=== PATIENT | female | born 1960 | race African-American/Black ===

== ENCOUNTER 2021-12-30 15:02 | Emergency (ER) | payer OTHER, SELFPAY ==
--- NOTE | ~2021-12-30 | XR_ITS ---
EXAMINATION: XR chest 2V 12/30/2021 15:53 INDICATION: Cough and shortness of breath. Covid. PROCEDURE: 2 view chest COMPARISON: No prior studies for comparison. FINDINGS: The lungs are clear. The cardiomediastinal silhouette is within normal limits. There are no pleural effusions. There is no pneumothorax suspected. There is mild scoliosis. There are cholec ystectomy clips. IMPRESSION: 1: NO ACUTE CARDIOPULMONARY DISEASE. Reviewed, dictated and finalized at location A.
[2021-12-30 15:23] VITALS: BP 143/90; PULSE 90; RESP 20; TEMP 37.2; O2SAT 100
[2021-12-30 15:53] VITALS: O2SAT 98
--- NOTE | 2021-12-30 16:01 | ED.URI ---
HPI - URI/Sore Throat General Chief Complaint: Upper Respiratory Infection Stated Complaint: sob Time Seen by Provider: 12/30/21 15:54 History of Present Illness HPI Narrative: 61-year-old female presents emergency room secondary cough and congestion. She states that has been going on for 2 days. She states she feels her self wheezing sometimes when she is trying to lay down at night and sleep. She has had pneumonia twice in the past. Approximate month ago despite being vaccinated she caught COVID and got over that without any significant adverse effects. She has no cardiac history. Related Data Allergies Allergy/AdvReac Type Severity Reaction Status Date / Time tetanus and diphtheria Allergy Mild Rash Verified 12/30/21 15:40 toxoids Penicillins Allergy Unknown Rash Verified 12/30/21 15:40 Contrast Media Allergy Mild Rash Uncoded 12/30/21 15:40 Review of Systems Review of Systems: CONSTITUTIONAL: Denies fever, chills, or sweats. EYES: Denies visual changes, redness, or discharge. ENT: Denies rhinorrhea, congestion, sore throat, or otalgia. CARDIOVASCULAR: Denies chest pain, palpitations, or edema. RESPIRATORY: Nonproductive cough with some wheezing GASTROINTESTINAL: Denies abdominal pain, nausea, vomiting, or diarrhea. GENITOURINARY: Denies dysuria or hematuria. SKIN: Denies rash or itching. MUSCULOSKELETAL: Denies back pain, joint pain, or myalgia. NEUROLOGIC: Denies headache, numbness, or weakness. PSYCHIATRIC: Denies anxiety or depression. PMFSH Past Medical History Medical History COVID Pneumonia Social History Social History Smoking status: Never smoker Exam Narrative: APPEARANCE: Well appearing, no pain or distress, well-nourished. Head normocephalic and atraumatic. EYES: PERRLA/EOMI, conjunctivae very clear. NOSE: Normal with no drainage EARS:TMS clear Cuco Robb, with good light reflex. THROAT: Pharynx clear, no exudate. NECK: Supple. No adenopathy, no masses. RESPIRATORY: Scattered coarse rhonchi with some mild end expiratory wheezing. CARDIOVASCULAR: Regular rate and rhythm without murmurs, rubs, or gallops. ABDOMINAL: Soft, nontender, nondistended, no hepatosplenomegaly Musculoskeletal: Moves all extremities. Strength/ROM intact, No edema, No calf tenderness. NEURO: Alert. Cranial nerves II through XII intact. Normal gait. Good coordination. Nonfocal examination. SKIN:: Warm, dry. Normal Color PSYCHIATRIC: Normal affect/mood, normal interaction Course Vital Signs Vital signs: Vital Signs Temperature 98.9 F 12/30/21 15:23 Pulse Rate 90 12/30/21 15:23 Respiratory Rate 20 12/30/21 15:23 Blood Pressure 143/90 H 12/30/21 15:23 Pulse Oximetry 100 12/30/21 15:23 Oxygen Delivery Room Air 12/30/21 15:23 Temperature 98.9 F 12/30/21 15:23 Pulse Rate 90 12/30/21 15:23 Respiratory Rate 20 12/30/21 15:23 Blood Pressure 143/90 H 12/30/21 15:23 Pulse Oximetry 98 12/30/21 15:53 Oxygen Delivery Room Air 12/30/21 15:53 MDM - URI/Sore Throat Imaging Data Radiologist's impression: [place] [address] [place] [address] XRay Report Signed Patient: Steffanie Dennis : 1960 MR#: [id number] Age/Sex: 61 / F Acct:[id number] Loc: [facility]? ? ADM Date: 12/30/21Attending Dr: Ordering Physician: Ramírez Roman DO Date of Service: 12/30/21 Procedure(s): XR chest 2V Accession Number(s): [id number] cc: Mia, Montserrat HOPSON; Ramírez Roman DO~ EXAMINATION: XR chest 2V 12/30/2021 15:53 INDICATION: Cough and shortness of breath. Covid. PROCEDURE:? 2 view chest COMPARISON: No prior studies for comparison. FINDINGS: The lungs are clear.? The cardiomediastinal silhouette is within normal limits.? There are no pleural effusions.? There is no pneumothorax suspected.? There is mild
== END 2021-12-30 16:20 | disposition home or self-care (01) ==
LOC: ANHED 16:17
PROVIDERS: Emergency Provider Emergency Medicine; PCP Internal Medicine Infectious Disease
DX: J20.9 Acute bronchitis, unspecified (principal); Z86.16 Personal history of COVID-19; Z87.01 Personal history of pneumonia (recurrent)
CPT/HCPCS: 71046; 99283

== ENCOUNTER 2022-02-14 10:10 | Outpatient (CLI) | payer OTHER, SELFPAY ==
--- NOTE | 2022-02-14 11:00 | NEURO_ITS ---
Impression: # Complains of pain in right hand. # Nonlocalizing mild right ulnar neuropathy around the elbow. # No Carpal Tunnel Syndrome. # Normal needle/EMG exam. # Clinical correlation recommended. Nerve Conduction Studies Anti Sensory Summary Table Stim Site NR Peak (ms) P-T Amp (?V) Site1 Site2 Delta-P (ms) Dist (cm) Yury (m/s) Right Median Anti Sensory (2-3nd Digit) Wrist 3.4 56.6 Wrist 2-3nd Digit 3.4 14.0 41 Wrist 3.5 39.5 Wrist 2-3nd Digit 3.4 14.0 41 Right Radial Anti Sensory (Base 1st Digit) Wrist 2.4 17.4 Wrist Base 1st Digit 2.4 0.0 Right Ulnar Anti Sensory (5th Digit) Wrist 2.6 30.6 Wrist 5th Digit 2.6 14.0 54 Motor Summary Table Stim Site NR Onset (ms) O-P Amp (mV) Site1 Site2 Delta-0 (ms) Dist (cm) Yury (m/s) Right Median Motor (Abd Poll Brev) Wrist 3.4 5.2 Elbow Wrist 4.8 27.0 56 Elbow 8.2 3.2 Right Ulnar Motor (Abd Dig Minimi) Wrist 2.6 7.4 A Elbow Wrist 5.5 28.0 51 A Elbow 8.1 5.9 B Elbow Wrist 3.7 19.0 51 B Elbow 6.3 3.7 F Wave Studies NR F-Lat (ms) L-R F-Lat (ms) Right Median (Mrkrs) (Abd Poll Brev) 26.37 Right Ulnar (Mrkrs) (Abd Dig Min) 27.66 EMG Side Muscle Nerve Root Ins Act Fibs Amp Dur Recrt Comment Right 1stDorInt Ulnar C8-T1 Nml Nml Nml Nml Nml Right Ext Indicis Radial (Post Int) C7-8 Nml Nml Nml Nml Nml Right Ext Digitorum Radial (Post Int) C7-8 Nml Nml Nml Nml Nml Right BrachioRad Radial C5-6 Nml Nml Nml Nml Nml Right PronatorTeres Median C6-7 Nml Nml Nml Nml Nml Right Abd Poll Brev Median C8-T1 Nml Nml Nml Nml Nml MTDD
== END 2022-02-14 10:11 | disposition home or self-care (01) ==
LOC: ANHNEURO 10:10
PROVIDERS: PCP Internal Medicine Infectious Disease; Visit Provider Orthopaedic Surgery Hand Surgery
DX: M77.11 Lateral epicondylitis, right elbow (principal); G56.21 Lesion of ulnar nerve, right upper limb
CPT/HCPCS: 95886; 95909

== ENCOUNTER 2022-10-14 21:03 | Emergency (ER) | payer OTHER, SELFPAY ==
--- NOTE | ~2022-10-14 | XR_ITS ---
Clinical Indication: Chest pain PA and lateral views of the chest: Comparison: 12/30/2021 Findings: The lungs are clear, without evidence of focal consolidation or pleural effusion. Cardiome diastinal silhouette is within normal limits. Bones and soft tissues are unremarkable. Impression: Normal chest. Reviewed, dictated and finalized at location . Impression: Normal chest.
--- NOTE | 2022-10-14 21:05 | ECG_ITS ---
Measurements Intervals [place] Rate: 81 P: 44 OR: 141 QRS: 17 QRSD: 92 T: 36 QT: 378 QTc: 440 Interpretive Statements SINUS RHYTHM NORMAL ELECTROCARDIOGRAM NO PREVIOUS ECG AVAILABLE FOR COMPARISON Electronically Signed On 10-15-2022 7:24:50 CDT by Clifton Kelly M.D.
[2022-10-14 21:18] VITALS: BP 132/72; RESP 18; O2SAT 99
--- NOTE | 2022-10-14 21:18 | ED.CHESTPAIN ---
HPI - Chest Pain General Chief Complaint: Chest Pain Stated Complaint: chest pain Time Seen by Provider: 10/14/22 21:10 History of Present Illness HPI narrative: Patient is a 62-year-old female with a history of hypertension, diabetes, asthma presenting with chest pain. Patient states that she was just sitting in bed when she developed diffuse chest pressure that spreads across the front of her chest. States that she initially felt lightheaded and somewhat short of breath with it. She denies radiation to her back or arms. Denies headache, numbness or weakness, vision changes, abdominal pain, nausea or vomiting, diarrhea, leg swelling. Related Data Allergies Allergy/AdvReac Type Severity Reaction Status Date / Time tetanus and diphtheria Allergy Mild Rash Verified 10/14/22 22:00 toxoids Penicillins Allergy Unknown Rash Verified 10/14/22 22:00 Contrast Media Allergy Mild Rash Uncoded 10/14/22 22:00 Review of Systems Review of Systems: All systems reviewed & are unremarkable except as noted in HPI and below PMFSH Past Medical History Medical History COVID Pneumonia Social History Social History Smoking status: Never smoker Exam Narrative: GENERAL: Appears somewhat uncomfortable, pleasant and cooperative HEAD: Normocephalic, atraumatic. EYES: PERRLA and EOMI. ENT: Nares clear, no rhinorrhea or epistaxis. Mucous membranes moist. NECK: Supple. CHEST: Clear to auscultation. No respiratory distress. No wheezing noted HEART: Regular rate and rhythm. No murmur heard. Normal peripheral pulses. 2+ radial pulses ABDOMEN: Soft, nontender, nondistended EXTREMITIES: Normal range of motion. No edema. SKIN: Warm, dry, no rash. NEURO: No focal deficits. Alert and oriented x3. PSYCH: Normal mood and affect. Course Vital Signs Vital signs: Vital Signs Respiratory Rate 18 10/14/22 21:18 Blood Pressure 132/72 10/14/22 21:18 Pulse Oximetry 99 10/14/22 21:18 Oxygen Delivery Room Air 10/14/22 21:18 Pulse Rate 78 10/15/22 03:27 Respiratory Rate 16 10/15/22 03:27 Blood Pressure 118/76 10/15/22 03:27 Pulse Oximetry 98 10/15/22 03:27 Oxygen Delivery Room Air 10/14/22 21:21 MDM - Chest Pain MDM Narrative Medical decision making narrative: Patient is a 62-year-old female presenting with 1 hour of chest pain. Vitals are within normal limits. Patient is well-appearing and in no acute distress. EKG per my interpretation shows normal sinus rhythm, normal axis and intervals, nonspecific T wave changes, no ST elevations or depressions. Chest x-ray shows no focal consolidations, effusions, pneumothorax. Mediastinum appears normal. Received p.o. aspirin via EMS. Patient received IV Tylenol and some fluids. Patient states that her pain has completely resolved. Blood work with hyperglycemia and mild anemia. Troponin is undetectable x2. She continues to rest comfortably. Her vital signs remain normal. Discussed the reassuring work-up with the patient. She feels comfortable going home. She denies any further pain or symptoms. Advised that she follow-up closely with her PCP. Also provided the number for cardiology and advised that she call on Monday to schedule follow-up. Strict return precautions were given. Patient voiced understanding and is agreeable with plan. Discharged in stable condition. Differential Diagnosis Differential diagnosis: Likely pneumothorax, stable angina, atypical chest pain, costochondritis and chest pain Lab Data 10/14/22 21:57 10/14/22 21:57 Labs: Lab Results 10/14/22 10/14/22 10/15/22 Range/Units 21:57 21:57 01:30 WBC 7.6 (4.5-10.0) K/mm3 RBC 4.07 L (4.2-5.4) M/mm3 Hgb 11.1 L (12.0-15.0) g/dL Hct 35.3 L (37.0-47.0) % MCV 86.7 (80-100) fl MCH 27.3 (26-34) pg MCHC 31.4 L (3
[2022-10-14 22:02] LABS: Basophils Percent Auto 0.5 % (0.2-1.2); Eosinophils Absolute Auto 0.2 K/mm3 (0-0.3); Hematocrit 35.3 % (37.0-47.0); Hemoglobin 11.1 g/dL (12.0-15.0); Immature Granulocyte Absolute 0.02 K/mm3 (0.00-0.031); Immature Granulocyte Percent A 0.3 % (0-0.5); Lymphocytes Absolute Auto 3.28 K/mm3 (0.9-3.2); Lymphocytes Percent Auto 43.2 % (18.3-44.2); Mean Corpuscular HGB Conc 31.4 g/dl (32-36); Mean Corpuscular Hemoglobin 27.3 pg (26-34); Mean Corpuscular Volume 86.7 fl (80-100); Mean Platelet Volume 10.8 fl (7.4-10.4); Monocytes Absolute Auto 0.4 K/mm3 (0.1-0.6); Monocytes Percent Auto 5.8 % (2.6-8.5); Neutrophils Absolute Auto 3.7 K/mm3 (1.3-6.7); Neutrophils Percent Auto 48.2 % (45.5-73.1); Platelet Count Result 292 k/mm3 (150-375); Red Blood Count 4.07 M/mm3 (4.2-5.4); Red Cell Distribution Width 13.2 % (11.5-14.5); White Blood Count 7.6 K/mm3 (4.5-10.0)
[2022-10-14 22:13] LABS: Prothrombin Time 12.9 Seconds (11.1-14.7)
[2022-10-14 22:14] LABS: Partial Thromboplastin Time 24.9 SECONDS (22.3-36.8)
[2022-10-14 22:20] LABS: Alanine Aminotransferase 24 U/L (6-35); Albumin Level 3.9 g/dL (3.5-5.1); Alkaline Phosphatase 125 U/L (38-126); Anion Gap 11 mmol/L (8-16); Aspartate Amino Transferase 23 U/L (14-36); Bilirubin,Total 0.4 mg/dL (0.2-1.3); Blood Urea Nitrogen 16 mg/dL (7-17); Calcium 8.4 mg/dL (8.4-10.2); Carbon Dioxide 23 mmol/L (22-30); Chloride 101 mmol/L (98-107); Estimated CRCL calculation 54 ml/min; Estimated Glomerular Filt Rate > 60; Glucose 230 mg/dL (65-110); Sodium 135 mmol/L (137-145)
[2022-10-14] MEDS: SODIUM CHLORIDE 0.9% IV 1,000 ML 999 ML IV CONT (22:21)
[2022-10-14 22:23] VITALS: BP 123/73; PULSE 81; RESP 20; O2SAT 99
[2022-10-14 22:32] LABS: Troponin I < 0.012 ng/mL (0.000-0.034)
[2022-10-14 23:42] VITALS: O2SAT 100
[2022-10-14 23:43] VITALS: BP 102/56; PULSE 86; RESP 16; O2SAT 100
[2022-10-14 23:55] VITALS: O2SAT 100
[2022-10-15] VITALS (12 sets, daily range): BP systolic 118–128; BP diastolic 70–76; PULSE 78; RESP 16; O2SAT 97–100
[2022-10-15 02:03] LABS: Troponin I < 0.012 ng/mL (0.000-0.034)
== END 2022-10-15 03:29 | disposition home or self-care (01) ==
PROVIDERS: Emergency Provider Emergency Medicine; PCP Internal Medicine Infectious Disease
DX: R07.9 Chest pain, unspecified (principal); I10 Essential (primary) hypertension; J45.909 Unspecified asthma, uncomplicated
CPT/HCPCS: 36415; 71046; 80053; 84484; 85025; 85610; 85730; 93005; 96361; 96365; 99284; J0131; J7030

== ENCOUNTER 2023-03-08 12:49 | Emergency (ER) | payer OTHER, SELFPAY ==
--- NOTE | ~2023-03-08 | XR_ITS ---
EXAMINATION: XR chest 2V 03/08/2023 13:45 INDICATION: Shortness of breath, wheezing and cough PROCEDURE: 2 view chest COMPARISON: 10/14/2022 FINDINGS: There is a possible mass in the right upper lobe posteriorly overlying the spine on the lat eral view. The cardiomediastinal silhouette is within normal limits. There are no pleural effusions. There is no pneumothorax suspected. IMPRESSION: 1: Possible right upper lobe mass. Recommend correlation with CT chest. Reviewed, dictated and finalized at location B.
[2023-03-08 13:19] VITALS: BP 142/71; PULSE 81; RESP 20; TEMP 36.4; O2SAT 100
[2023-03-08 14:18] LABS: Influenza A QL RT-PCR Negative (Negative); Influenza B QL RT-PCR Negative (Negative); RSV RNA, RT-PCR Negative (Negative); SARS-CoV-2 RNA PCR Negative (Negative)
--- NOTE | 2023-03-08 14:34 | ED.URI ---
HPI - URI/Sore Throat General Chief Complaint: Upper Respiratory Infection Stated Complaint: Breathing 3x in last 12 hours, SOB Time Seen by Provider: 03/08/23 13:29 History of Present Illness HPI Narrative: 62-year-old female history of asthma presents to the emergency room for evaluation of shortness of breath, wheezing, increased use of her albuterol rescue inhaler. Patient states that her triggers environmental, reportedly her neighbors smoke. When she is exposed to the cigarette smoke she has to use her inhaler with increased frequency. Denies fever. Related Data Allergies Allergy/AdvReac Type Severity Reaction Status Date / Time tetanus and diphtheria Allergy Mild Rash Verified 03/08/23 12:50 toxoids Penicillins Allergy Unknown Rash Verified 03/08/23 12:50 Contrast Media Allergy Mild Rash Uncoded 03/08/23 12:50 Review of Systems Review of Systems: CONSTITUTIONAL: Denies fever, chills, or sweats. EYES: Denies visual changes, redness, or discharge. ENT: Denies rhinorrhea, congestion, sore throat, or otalgia. CARDIOVASCULAR: Denies chest pain, palpitations, or edema. RESPIRATORY: Reports cough or dyspnea. GASTROINTESTINAL: Denies abdominal pain, nausea, vomiting, or diarrhea. GENITOURINARY: Denies dysuria or hematuria. SKIN: Denies rash or itching. MUSCULOSKELETAL: Denies back pain, joint pain, or myalgia. NEUROLOGIC: Denies headache, numbness, dizziness, or weakness. PSYCHIATRIC: Denies anxiety or depression. PMFSH Past Medical History Medical History COVID Pneumonia Social History Social History Smoking status: Never smoker Exam Narrative: GENERAL: Well-appearing, well-nourished, no physical limitations, and in no acute distress. HEAD: Normocephalic, atraumatic. EYES: Conjunctivae normal, PERRLA and EOMI. NECK: Supple. CHEST: Expiratory wheezes throughout, no respiratory distress. HEART: Regular rate and rhythm. No murmur heard. Normal peripheral pulses. EXTREMITIES: Normal range of motion. No edema. No clubbing or cyanosis SKIN: Warm, dry, no rash. No noted wounds NEURO: No focal deficits. Alert and oriented x3. MAMARCO. CN's II-XI intact bilaterally, normal gait PSYCH: Cooperative. Normal mood and affect. Course Vital Signs Vital signs: Vital Signs Temperature 36.4 C 03/08/23 13:19 Pulse Rate 81 03/08/23 13:19 Respiratory Rate 20 03/08/23 13:19 Blood Pressure 142/71 H 03/08/23 13:19 Pulse Oximetry 100 03/08/23 13:19 Oxygen Delivery Room Air 03/08/23 13:19 Temperature 36.4 C 03/08/23 13:19 Pulse Rate 81 03/08/23 13:19 Respiratory Rate 20 03/08/23 13:19 Blood Pressure 142/71 H 03/08/23 13:19 Pulse Oximetry 100 03/08/23 13:19 Oxygen Delivery Room Air 03/08/23 13:19 MDM - URI/Sore Throat Lab Data Labs: Lab Results 03/08/23 Range/Units 13:38 Influenza A (RT-PCR) Negative (Negative) Influenza B (RT-PCR) Negative (Negative) RSV (RT-PCR) Negative (Negative) SARS-CoV-2 RNA (RT-PCR) Negative (Negative) Discharge Plan Discharge Clinical Impression: Asthma exacerbation Patient Disposition: Home, Self-Care Condition: Stable Instructions: Antibiotic Form, Asthma (DC) Prescriptions: New prednisone 20 mg tablet 60 mg PO DAILY Qty: 15 0RF fluticasone propion-salmeterol [Advair Diskus] 100-50 mcg/dose blister with device 1 inh inhalation Q12H Qty: 60 0RF No Action azithromycin [Zithromax Z-Ap] 250 mg tablet See Rx Instructions .ROUTE .COMPLEX Qty: 6 0RF Rx Instructions: For 250 mg dose pack: take 500 mg today (day 1), then 250 mg for 4 days (days 2-5) albuterol sulfate 90 mcg/actuation aerosol powdr breath activated 2 inh inhalation Q6H PRN (Reason: shortness of breath or wheezing) Qty: 1 0RF Follow-up/Referrals: Mia,Garett Mariano. [Primary Care Provide
[2023-03-08 15:10] VITALS: PULSE 75; RESP 20
[2023-03-08] MEDS: ALBUTEROL SULFATE NEB 2.5 MG/3 ML INH INHALATION (15:19)
[2023-03-08] MEDS: IPRATROPIUM BR 0.02% INH SOLN 0.5 MG/2.5 ML VIAL INHALATION (15:19)
[2023-03-08 15:21] VITALS: PULSE 72; RESP 20
[2023-03-08 15:35] VITALS: BP 133/80; PULSE 66; RESP 16; O2SAT 99
== END 2023-03-08 15:41 | disposition home or self-care (01) ==
PROVIDERS: Emergency Provider Nurse Practitioner Family; PCP Internal Medicine Infectious Disease
DX: J45.901 Unspecified asthma with (acute) exacerbation (principal); Z20.822 Contact with and (suspected) exposure to COVID-19; Z86.16 Personal history of COVID-19; Z87.01 Personal history of pneumonia (recurrent)
CPT/HCPCS: 71046; 87637; 94640; 96372; 99283; J1100

== ENCOUNTER 2024-10-01 12:02 | Emergency (ER) | payer OTHER, SELFPAY ==
--- NOTE | ~2024-10-01 | XR_ITS ---
EXAMINATION: XR chest 2V DATE: 10/01/2024 12:38 INDICATION: Chest pain TECHNIQUE: PA and lateral views of the chest were obtained. COMPARISON: Chest radiograph dated 03/08/2023 FINDINGS: The lungs remain clear with no focal airspace opacities, pulmonary edema, pleural effusion or pneumot horax. Heart size is normal. Cholecystectomy clips in right upper quadrant. bridging osteophytes at m ultiple levels consistent with diffuse idiopathic skeletal hyperostosis (DISH). IMPRESSION: 1. No acute cardiopulmonary disease. Reviewed, dictated and finalized at location A.
--- NOTE | 2024-10-01 12:07 | ECG_ITS ---
Test Date: 2024-10-01 12:23:08 Measurements Intervals [place] Rate: 64 P: 44 [place]: 141 QRS: 17 QRSD: 81 T: 42 QT: 399 QTc: 412 Interpretive Statements SINUS RHYTHM BASELINE ARTIFACT- I, III, AVR, AVL NORMAL ECG No previous ECG available for comparison Electronically Signed On 10-01-2024 12:56:26 CDT by Parminder Wylie D.O.
[2024-10-01 12:31] LABS: Basophils Percent Auto 0.3 % (0.2-1.2); Eosinophils Absolute Auto 0.1 K/mm3 (0-0.3); Eosinophils Percent Auto 1.3 % (0-4.4); Hematocrit 40.2 % (37.0-47.0); Hemoglobin 12.5 g/dL (12.0-15.0); Immature Granulocyte Absolute 0.02 K/mm3 (0.00-0.031); Immature Granulocyte Percent A 0.3 % (0-0.5); Lymphocytes Percent Auto 30.8 % (18.3-44.2); Mean Corpuscular HGB Conc 31.1 g/dl (32-36); Mean Corpuscular Hemoglobin 26.8 pg (26-34); Mean Corpuscular Volume 86.1 fl (80-100); Mean Platelet Volume 10.8 fl (7.4-10.4); Monocytes Absolute Auto 0.2 K/mm3 (0.1-0.6); Monocytes Percent Auto 3.9 % (2.6-8.5); Neutrophils Absolute Auto 3.9 K/mm3 (1.3-6.7); Neutrophils Percent Auto 63.4 % (45.5-73.1); Platelet Count Result 303 k/mm3 (150-375); Red Blood Count 4.67 M/mm3 (4.2-5.4); Red Cell Distribution Width 13.4 % (11.5-14.5); White Blood Count 6.2 K/mm3 (4.5-10.0)
[2024-10-01 12:55] LABS: Alanine Aminotransferase 15 U/L (6-35); Albumin Level 4.4 g/dL (3.5-5.1); Alkaline Phosphatase 113 U/L (38-126); Anion Gap 9 mmol/L (4-12); Aspartate Amino Transferase 23 U/L (14-36); Bilirubin,Total 0.7 mg/dL (0.2-1.3); Blood Urea Nitrogen 15 mg/dL (7-17); Calcium 9.2 mg/dL (8.4-10.2); Carbon Dioxide 24 mmol/L (22-30); Chloride 105 mmol/L (98-107); Estimated CRCL calculation 52 ml/min; Estimated Glomerular Filt Rate > 60; Glucose 130 mg/dL (65-110); Lipase 85 U/L (23-300); Potassium 4.4 mmol/L (3.4-5.0); Sodium 138 mmol/L (137-145)
[2024-10-01 12:57] LABS: Partial Thromboplastin Time 23.7 Seconds (22.3-36.8); Prothrombin Time 13.4 Seconds (11.1-14.7)
[2024-10-01 13:05] LABS: Troponin I < 0.012 ng/mL (0.000-0.034)
--- OUTSIDE RECORDS SUMMARY | 2024-10-01 13:22 | XMS_ITS | Clinical Summary ---
Author Organization [facility] Address [address] [facility], [address] [address] Phone Care Team Providers Care Barn And Property Manager Name Role Phone Montserrat Bellamy MD Primary Care Provider Allergies Active Allergy Reactions Criticality Noted Date Comments Iodinated Contrast Media Rash Medium 04/17/2017 Penicillins Hives,Rash Medium 04/17/2017 Bacterial infection Tetanus Toxoids Rash Medium 04/17/2017 Medications albuterol (VENTOLIN HFA) 108 (90 Base) MCG/ACT Aerosol Solution Ventolin HFA 90 mcg/actuation aerosol inhaler INHALE 2 PUFFS PO Q 6 H Active losartan (COZAAR) 100 MG Tablet losartan 100 mg tablet TAKE 1 TABLET BY MOUTH ONCE DAILY 7 Active Alogliptin Benzoate 12.5 MG Tablet alogliptin 12.5 mg tablet TK 2 TS PO QD Active metFORMIN (GLUCOPHAGE) 1000 MG Tablet metformin 1,000 mg tablet 7 Active atorvastatin (LIPITOR) 40 MG Tablet atorvastatin 40 mg tablet TAKE 1 TABLET BY MOUTH ONCE DAILY AT BEDTIME FOR 30 DAYS Active glimepiride (AMARYL) 2 MG Tablet glimepiride 2 mg tablet TAKE 2 TABLETS BY MOUTH TWICE DAILY BEFORE MEAL(S) Active insulin glargine (BASAGLAR KWIKPEN) 100 UNIT/ML Solution Pen-injector Basaglar KwikPen U-100 Insulin 100 unit/mL (3 mL) subcutaneous 7 Active aspirin EC 81 MG Tablet Delayed Response Take 81 mg by mouth. Active Active Problems Problem Noted Date Diagnosed Date Anemia of unknown etiology 12/13/2018 Family History Medical History Relation Name Comments Diabetes Brother Hypertension Brother Diabetes Father Hypertension Father Diabetes Maternal Aunt Hypertension Maternal Aunt Diabetes Mother Hypertension Mother Diabetes Sister Hypertension Sister Relation Name Status Comments Brother Father Maternal Aunt Mother Sister Social History Tobacco Use Types Packs/Day Years Used Date Smoking Tobacco: Never Smokeless Tobacco: Never Alcohol Use Standard Drinks/Week Comments Never 0 (1 standard drink = 0.6 oz pur e alcohol) AUDIT-C Answer Date Recorded Frequency of Alcohol Consumption Never 12/13/2018 Average Number of Drinks Not on file 019 Frequency of Binge Drinking Not on file 11/25 PHQ-2 Answer Date Recorded PHQ-2 Score 0 03/09/2019 Comments Unknown Sex and Gender Information Value Date Recorded Sex Assigned at Not on file Legal Sex Female 5:35 PM CDT Gender Identity Not on file Sexual Orientation Not on file Last Filed Vital Signs Vital Sign Reading Time Taken Comments Blood Pressure 120/70 12/13/2018 1:59 PM CDT Pulse 89 12/13/2018 1:59 PM CDT Temperature 36.6 C (97.8 F) 12/13/2018 1:59 PM CDT Respiratory Rate 16 12/13/2018 1:59 PM CDT Oxygen Saturation 98% 12/13/2018 1:59 PM CDT Inhaled Oxygen Concentration - - Weight 73 kg (161 lb) 12/13/2018 1:59 PM CDT Height 154.9 cm (5' 1 ) 12/13/2018 1:59 PM CDT Body Mass Index 30.42 12/13/2018 1:59 PM CDT Plan of Treatment Health Maintenance Due Date Last Done Comments Hepatitis C Virus (HCV) Screening 1960 TdaP Immunization 1960 Colonoscopy 2006 Colorectal Cancer Screening 2006 Cologuard 2011 Immunochemical Fecal Occult Blood 2011 Zoster Immunization (1 of 2) 2011 Pneumococcal Immunization (5 0+ years) (2 of 2 - PCV) 05/29/2015 05/29/2014 Influenza Immunization (#1) 2024 06/08/2014 SARS-COV-2 Immunization (3 - season) 2024 07/06/2021, 10/03/2020 Respiratory Syncytial Virus (RSV) Immunization (Adult) (1 - 1-dose 75+ series) 2036 Pneumococcal Immunization Combined Discontinued 05/29/2014 Hepatitis B Immunization Aged Out No longer eligible based on patient's age to complete this topic Meningococcal Immunization (ACWY) Aged Out No longer eligible based on patient's age to complete this topic Rotavirus Immunization Aged Out No lo nger eligible based on patient's age to complete this topic Insurance MEDICAID [place] Care Teams Barn And Property Manager Relationship Specialty Start Date End Date Montserrat Bellamy MD [address] [place] [address] PCP - General Internal Medicine 11/29/18
--- OUTSIDE RECORDS SUMMARY | 2024-10-01 13:22 | XMS_ITS | Encounter Summary ---
Author Organization [facility] Address [address] [place] [address] Care Team Providers Care Terra Cotta Roofer Name Role Phone Montserrat Bellamy MD Primary Care Provider Encounter Details Date Type Department Care Team (Late st Contact Info) Description 09/25/2024 Orders Only [facility] - ENT [address], [address] [place] [address] Elyssa Gamboa RN Abnormal MRI Social History Tobacco Use Types Packs/Day Years Used Date Smoking Tobacco: Never Alcohol Use Standard Drinks/Week Comments Never 0 (1 standard drink = 0.6 oz pur e alcohol) Sex and Gender Information Value Date Recorded Sex Assigned at Not on file Gender Identity Not on file Sexual Orientation Not on file documented as of this encounter Plan of Treatment Upcoming Encounters Date Type Department Care Team (Late st Contact Info) Description 01/27/2025 10:00 AM CDT Office Visit [facility] - Neurology [address] [place] [phone] Anusha Morris, [employer] [address] [place] [address] [place] [address] documented as of this encounter Visit Diagnoses Diagnosis Abnormal MRI Other nonspecific (abnormal) findings on radiological and other examinations of body structure documented in this encounter Care Teams Terra Cotta Roofer Relationship Specialty Start Date End Date Montserrat Bellamy MD [address] [place], [place] [id number] PCP - General 10/20/15 documented as of this encounter
--- OUTSIDE RECORDS SUMMARY | 2024-10-01 13:23 | XMS_ITS | Data Portability ---
Author Organization [place] [facility], Main Office Address [address] [place] [address] Care Team Providers Care Car Varnisher Name Role Phone MARIA D MURPHY Primary Care Provider MARIA D MURPHY Referring Provider Assessment Encounter Date Assessment Date Assessment LastModified by Organization Details LastModified Time 12/25/2023 12/25/2023 63-year-old female presents for follow-up of her left hand, status post trigger finger release and 2 subsequent I and D's. She is finished with her course of antibiotics. She has some scar tissue in her palm and tip of her finger where her previous incisions were. She did a course physical therapy which did not help much. She is still feeling stiffness in the finger and working on stretching. Currently rates her pain as 4/10. She does have palpable scar tissue over her previous incisions. They are well healed, no signs of infection. She does have stiffness with finger. We will have her continue working on stretching. We will also give her another course of anti-inflammator ies to help with that. We will keep her on no lifting pushing pulling with the left hand for work. Follow up in 6 weeks. Not available 12/25/2023 23:20:43 02/05/2024 02/05/2024 63-year-old female presents for follow-up of her left hand status post trigger finger release a subsequent I and D for infection. Her infection has since cleared up. She still reports some stiffness in the hand, but she has been working with that with physical therapy and wants to continue working on that. She states that she is doing better, still having some pain, rated as 2 to 3/10. Incisions well healed. No signs of infection. She has no tenderness along the finger. She does have some stiffness with full extension At this point she should continue to do activities as tolerated, progressing with her daily activities. She may follow-up as needed. She wants to be released to work starting in February. All questions and concerns were addressed. Not available 02/08/2024 01:13:40 04/02/2024 04/02/2024 This note is dictated and transcribed by [employer]. [employer] Officer Chief variances may occur. Despite proofreading, typographical errors may occur. Occasional wrong-word or '[id number]' substitutions may have occurred due to the inherent limitations of voice recording. Read the chart carefully and recognize, using context, where substitutions have occurred. Not available 04/02/2024 17:01:39 04/29/2024 04/29/2024 63-year-old female presents for follow-up of her left hand. She has a history of a trigger finger release and subsequent infection and 2 I and D's. That has since cleared up, but she has some stiffness in her finger. She has been doing therapy exercises to stretch out the finger, but still has difficulty with full extension and limited flexion as well. Incision is clean dry intact, no signs of infection. She has a Dupuytren's cord in the palm that limits her full extension. She has thickening of the flexor tendon throughout the hand from the surgical site down to the finger and that is limiting her range of motion as well. Sensation intact to light touch, 2+ radial pulse. At this point, her infection is cleared but she has subsequent scarring and thickening of tissue that is limiting her range of motion. She also has developed a Dupuytren's cord. We will send her for a referral to a hand specialist to discuss further treatment options such as release. She may follow-up with us again after evaluation if there is anything additional to do. She is in agreement with plan. Not available 04/29/2024 11:38:57 08/08/2024 08/08/2024 This note is dictated and transcribed by [employer]. [employer] Chief variances may occur. Despite proofreading, typographical errors may occur. Occasional wrong-word or '[id number]' substitutions may have occurred due to the inherent limitations of voice recording. Read the chart carefully and recognize, using context, where substitutions have occurred. Not available 08/08/2024 18:02:12 Plan of Treatment Reminders Order Date Submit Date Provider Last Modified By Organization Details Last Modified Time Details Appointments Establish ed Patient 15 2024 04:00P Yudy Angel DPM Not available Not available Not available Lab None recorded. Referral hand surgeon referral - Please review and call patient to schedule 2023 024 JACINTO Kitchen MD, [address] [facility], [facility] [address], [place], [address], 04/30/2024 09:50:49 Procedures None recorded. Surgeries None recorded. Imaging None recorded. Medication Orders None recorded. Patient TargetsNo targets recorded. Patient InstructionsNo instructions recorded. Reason for Referral Hand Surgeon Referral for Du puytren's contracture of finger Please review and call patient to schedule Referring Physician: Dave Crane, Orthopedic Surgery, Encounter Date: 04/29/2024 Results Created Date Observation Date Name Description Value Unit Range Abnormal Flag Note LastModifiedBy Organization Detail LastModifiedTime 12/06/19 24 XR, hip + pelvi s, unila teral No observ ation record ed. [email or web address] [facility] [place] [address], [place], [address], 12/06/2023 09:12:46 Result Notes None recorded. Problems Name Problem SNOMED Code Status Onset Date Resolution Date Notes Provider Name and Address Organization Details Recorded Time Pain of right shoulder joint 7815347797608 9100 Active 2021 Not Available [facility] 3 18:36:31 Carpal tunnel syndrome of right wrist 6372633591238 08 Active 2021 Not Available [facility] 3 18:36:31 Lateral epicondyli tis of right humerus 5668063911436 07 Active 2021 Not Available [facility] 3 18:36:31 Vitamin D deficiency 59957644 Active 2021 Not Available [facility] 3 18:36:31 Dyslipidem ia 880444933 Active 2021 Not Available [facility] 3 18:36:31 Hypertensi ve disorder 94067439 Active 2016 Not Available [facility] 3 18:36:31 Type 2 diabetes mellitus 21461496 Active 2019 Not Available [facility] 3 18:36:32 Uncontroll ed type 2 diabetes mellitus 979757867 Active 2021 Not Available [facility] 3 18:36:32 Essential hypertensi on 79716607 Active 2021 Not Available [facility] 3 18:36:32 Diabetes mellitus 70446410 Active 2016 Not Available [facility] 3 18:36:32 Impingemen t syndrome of right shoulder region 6351099222951 02 Active 2022 ZIA Black, [employer] [facility] 3 16:18:13 Cervical radiculopa thy 68258180 Active 2022 Yue Acharya null, [employer] [facility] 3 17:12:41 Ulnar nerve entrapment at elbow 478724899 Active 2022 Tee Kitchen MD [address], [place], [address] , [employer] [facility] 3 11:57:27 Bunion 552817749 Active 2022 Lio Angel DPM [address], [address], [place], [address] , [employer] [facility] [employer] [facility] 3 16:10:49 Foot callus 121157300 Active 2022 Lio Angel DPM [address], [place], [address] , [employer] [facility] 3 16:10:58 Pain in left foot 1705203773633 07 Active 2022 Lio Angel DPM [address], [address], [place], [address] , [employer] [facility] [employer] [facility] 3 16:11:02 Hammer toe 308463300 Active 2022 Lio Angel DPM [address], [address], [place], [address] , [facility] 3 16:11:13 Hammer toe 766262783 Active 2022 Lio Angel DPM [address], [address], [place], [address] , [facility] 3 16:11:19 Bunion 665551534 Active 2022 Lio Angel DPM [address], [address], [place], [address] , [facility] 3 16:12:05 Pain of right knee joint 4000166891932 00 Active 2022 ZIA Padilla null, [facility] 3 11:09:01 Pain of bilateral hands 2161465228991 9109 Active 2022 Yue Acharya null, [facility] 3 11:59:01 Acquired trigger finger of left middle finger 0570533657339 02 Active 2022 ORESTES Driscoll [address], [place], [address] , [facility] 3 12:36:36 Pain in right foot 0472979865460 07 Active 2022 Lio Angel DPM [address], [place], [address] , [facility] 3 16:58:47 Hammer toe 105589608 Active 2022 Lio Angel DPM [address], [place], [address] , [facility] 3 16:58:51 Trigger finger of left hand 6859274441691 9107 Active 2023 Dave Crane MD [address], [place], [address] , [facility] 4 13:07:30 Dystrophia unguium 94860498 Active 2023 Lio Angel DPM [address], [facility] [address], [place], [address] , [facility] 4 14:08:00 Hammer toe 155540722 Active 2023 Lio Angel DPM [address], [facility] [address], [place], [address] , [facility] 4 14:08:18 Pain of left hand 6548251408898 03 Active 2023 ZIA Padilla, [facility] 4 10:34:46 Achilles tendinitis 14973214 Active 2023 Kathie Tolbert CNA null, [facility] 4 11:02:21 Pain of left hip joint 2532397071252 [address], ATC L null, [facility] 4 09:12:41 Osteoarthr itis of left hip joint 6506330089419 08 Active 2023 Yue Acharya null, [facility] 4 09:31:44 Acquired deformity of toe 87676473 Active 2023 Lio Angel DPM [address], [facility] [address], [place], [address] , [facility] 4 17:00:39 Callosity on toe 983873894 Active 2023 Lio Angel DPM [address], [facility] [address], [place], [address] , [facility] 4 17:01:52 Trigger finger of right hand 4708233094472 9101 Active 2023 ZIA Padilla null, [facility] 4 10:36:30 Dupuytren' s contractur e of finger 045008792 Active 2023 Yue jordan [facility] [employer] [facility] 10:57:08 Notes:Some problems listed i n Document: #[id number] could not be added to this patient's chart. Please review this document and add these problems to the patient's chart manually as needed. Problem Notes None recorded. Procedures Surgical History Date Name Laterality Status Provider Name and Address Organization Details Recorded Time 08/08/19 25 Nail Debridement completed ANTONINA Singleton [address], [place], [address], [facility] [employer] [facility] 08/08/2024 18:01:37 08/08/19 25 Callus Debridement 2-4 completed Lio Angel DPM [address], [place], [address], [facility] [employer] [facility] 08/08/2024 18:00:46 04/02/20 24 Nail Debridement completed Lio Angel DPM [address], [place], [address], [facility] [employer] [facility] 04/29/2024 10:39:58 04/02/20 24 Callus Debridement, One completed Lio Angel DPM [address], [place], [address], [facility] [employer] [facility] 04/29/2024 10:39:46 11/14/19 24 Nail Debridement completed ANTONINA Singleton [address], [place], [address], [facility] [employer] [facility] 11/14/2023 17:30:58 11/14/19 24 Callus Debridement, One completed Lio Angel DPM [address], [place], [address], [facility] [employer] [facility] 11/14/2023 17:31:02 10/12/19 24 Hand completed ZIA Padilla [facility] [employer] [facility] 12/04/2023 14:50:09 09/19/19 24 Hand completed Josselyn Mayer Sekou [facility] [employer] [facility] 12/04/2023 14:47:22 09/12/19 24 Nail Debridement completed Lio Angel DPM [address], [address], [place], [address], [facility] [employer] [facility] 09/20/2023 14:07:45 09/12/19 24 Callus Debridement 2-4 completed Lio Angel DPM [address], [address], [place], [address], [facility] [employer] [facility] 09/20/2023 14:07:32 06/13/20 23 Nail Debridement completed Lio Angel DPM [address], [place], [address], [facility] [employer] [facility] 06/13/2023 16:57:26 06/13/20 23 Callus Debridement 2-4 completed Lio Angel DPM [address], [place], [address], [facility] [employer] [facility] [employer] [facility] 06/13/2023 16:58:21 03/13/20 23 Callus Debridement, One completed Lio Angel DPM [address], [place], [address], [facility] [employer] [facility] [employer] [facility] 03/13/2023 17:48:15 11/04/19 23 Nail Debridement completed Lio Angel DPM [address], [address], [place], [address], [facility] [employer] [facility] [employer] [facility] 11/03/2022 16:10:35 11/04/19 23 Callus Debridement, One completed Lio Angel DPM [address], [place], [address], [facility] [employer] [facility] 11/03/2022 16:10:27 04/29/20 21 procedure on tendon completed Not Available [employer] 08/24/2022 18:35:27 Hysterectomy completed Not Available [facility] 08/24/2022 18:35:27 Imaging Results Imaging Date Name Status LastModified by Organiz ation Details LastModified Time 12/06/2023 XR, hip + pelvis, unilateral completed [email or web address] [facility] [place] [address], [place], [address], 12/06/2023 09:12:46 Procedure Notes None recorded. Medical Equipment None Reported. Allergies Allergen ID Allergen Name Allergen Category Reaction Reaction Severity Criticality Documentation Date Start Date Code Code System Note Provider Name and Address Organization Details Recorded Time 69918 Tetanus toxoid adsorbed Not available rash Not available Not available 08/24/2022 63419 RxNorm Not Available [facility] 3 18:37:36 62920 Product containin g penicilli n (product) medicatio n Not available Not available Not available 08/24/2022 19863 8001 SNOMED Not Available [facility] 3 18:37:36 34785 Iodinated contrast media (substanc e) medicatio n Not available Not available Not available 08/24/2022 40818 2004 SNOMED Not Available [facility] 3 18:37:36 19718 diphtheri a, pertussis , tetanus vaccine Not available Not available Not available Not available 08/24/2022 39102 UNK Not Available [facility] 3 18:37:36 Medications Name Sig Start Date Stop Date Status Note LastModified by Organization Details LastModified Time aspirin 81 mg capsule Take by oral route. 03/02 completed Not Available Not Available Not Available atorvastati n 40 mg tablet Take one tablet by mouth twice a week at bedtime 01/27 completed Not Available Not Available Not Available methocarbam ol 500 mg tablet 01/27 completed Not Available Not Available Not Available bupropion HCl SR 150 mg tablet,12 hr sustained-r elease 01/27 completed Not Available Not Available Not Available albuterol sulfate 2.5 mg/3 mL (0.083 %) solution for nebulizatio n USE 1 VIAL IN NEBULIZER THREE TIMES DAILY NEEDED active Not Available Not Available No t Available trazodone 50 mg tablet 01/27 completed Not Available Not Available Not Available clarithromy rahel 250 mg tablet 05/13 completed Not Available Not Available Not Available azithromyci n 250 mg tablet TAKE 2 TABLETS BY MOUTH ON DAY 1, AND THEN TAKE 1 TABLET BY MOUTH ONCE A DAY ON DAY 2 THROUGH DAY 5 07/19 completed Not Available Not Available Not Available Novolin N NPH U-100 Insulin isophane 100 unit/mL subcutaneou s susp 01/27 completed Not Available Not Available Not Available hydrochloro thiazide 50 mg tablet TK 1 T PO QD 03/04 completed Not Available Not Available Not Available hydrocodone 5 mg-acetamin ophen 325 mg tablet TAKE 1 TABLET BY MOUTH EVERY 4 HOURS NEEDED FOR PAIN (4-6 ON SCALE)MAX 4000 MG ACETAMINO PHEN PER 24 HOURS 12/24 completed Not Available Not Available Not Available glipizide ER 10 mg tablet, extended release 24 hr 03/04 completed Not Available Not Available Not Available prednisone 20 mg tablet TAKE 3 TABLETS BY MOUTH ONCE DAILY 12/24 completed Not Available Not Available Not Available isosorbide mononitrate ER 30 mg tablet,exte nded release 24 hr TAKE 1 TABLET BY MOUTH ONCE DAILY active Not Available Not Available No t Available alendronate 70 mg tablet TAKE 1 TABLET BY MOUTH ONCE A WEEK DIRECTED FOR 28 DAYS active Not Available Not Available No t Available cromolyn 4 % eye drops INSTILL 1 DROP IN BOTH EYES EVERY 4 HOURS 03/02 completed Not Available Not Available Not Available Lantus U-100 Insulin 100 unit/mL subcutaneou s solution 01/27 completed Not Available Not Available Not Available Advair Diskus 100 mcg-50 mcg/dose powder for inhalation INHALE 1 DOSE BY MOUTH EVERY 12 HOURS 12/03 completed Not Available Not Available Not Available metronidazo le 500 mg tablet TAKE 1 TABLET BY MOUTH THREE TIMES DAILY FOR 14 DAYS 03/04 completed Not Available Not Available Not Available ciprofloxac in 500 mg tablet TAKE 1 TABLET BY MOUTH TWICE DAILY FOR 14 DAYS 03/04 completed Not Available Not Available Not Available sulfamethox azole 800 mg-trimetho prim 160 mg tablet TAKE 1 TABLET BY MOUTH TWICE DAILY 12/24 completed Not Available Not Available Not Available tramadol 50 mg tablet TK 1 T PO Q 8 H 01/27 completed Not Available Not Available Not Available glimepiride 2 mg tablet TAKE 2 TABLETS BY MOUTH TWICE DAILY BEFORE MEAL(S) active Not Available Not Available No t Available ondansetron 8 mg disintegrat ing tablet 01/27 completed Not Available Not Available Not Available ketorolac 10 mg tablet TAKE 1 TABLET BY MOUTH EVERY 6 HOURS NEEDED FOR 5 DAYS 03/04 completed Not Available Not Available Not Available meloxicam 7.5 mg tablet 01/27 completed Not Available Not Available Not Available Zofran 8 mg tablet Take 1 tablet every 8 hours by oral route for 2 days. 01/27 completed Not Available Not Available Not Available famotidine 20 mg tablet TAKE ONE TABLET BY MOUTH AT BEDTIME THE DAY BEFORE AND ONE TABLET THE MORNING OF THE PROCEDURE 12/03 completed Not Available Not Available Not Available methocarbam ol 750 mg tablet TAKE 1 TABLET BY MOUTH 4 TIMES DAILY NEEDED active Not Available Not Available No t Available pravastatin 10 mg tablet 01/27 completed Not Available Not Available Not Available benzonatate 100 mg capsule TAKE 1 CAPSULE BY MOUTH THREE TIMES DAILY FOR 7 DAYS 03/08 completed Not Available Not Available Not Available doxycycline monohydrate 100 mg capsule TAKE 1 CAPSULE BY MOUTH TWICE DAILY 12/03 completed Not Available Not Available Not Available hydrocodone 7.5 mg-acetamin ophen 325 mg tablet 01/20 completed Not Available Not Available Not Available pantoprazol e 40 mg tablet,kiersten yed release 01/27 completed Not Available Not Available Not Available metformin 1,000 mg tablet TAKE 1 TABLET BY MOUTH TWICE DAILY active Not Available Not Available No t Available glimepiride 4 mg tablet Take 1 tablet twice a day by oral route with meals for 90 days. 12/24 completed Not Available Not Available Not Available prednisone 50 mg tablet TAKE 1 TABLET BY MOUTH EVERY 6 HOURS DIRECTED. TAKE THE LAST DOSE 1 HOUR BEFORE TESTING. 12/03 completed Not Available Not Available Not Available promethazin e 25 mg tablet TK 1/2 T PO EVERY 6 HOURS 01/27 completed Not Available Not Available Not Available insulin syringe U-100 with needle 0.3 mL 30 gauge x 11/08 completed Not Available Not Available Not Available Advair Diskus 250 mcg-50 mcg/dose powder for inhalation INHALE 1 DOSE BY MOUTH TWICE DAILY active Not Available Not Available No t Available nitroglycer in 0.4 mg sublingual tablet DISSOLVE ONE TABLET UNDER THE TONGUE EVERY 5 MINUTES NEEDED FOR CHEST PAIN. DO NOT EXCEED A TOTAL OF 3 DOSES IN 15 MINUTES 08/28 completed Not Available Not Available Not Available gabapentin 300 mg capsule 01/27 completed Not Available Not Available Not Available Banophen 25 mg capsule TAKE 2 CAPSULES BY MOUTH ONE HOUR PRIOR TO CT SCAN 03/04 completed Not Available Not Available Not Available montelukast 10 mg tablet TAKE 1 TABLET BY MOUTH ONCE DAILY AT BEDTIME FOR 30 DAYS active Not Available Not Available No t Available [place] 10 mg-325 mg tablet 1-2 tablets every 4-6 hours prn 10/23 completed Not Available Not Available Not Available ergocalcife rol (vitamin D2) 1,250 mcg (50,000 unit) capsule TAKE 1 CAPSULE BY MOUTH ONCE A WEEK DIRECTED FOR 28 DAYS active Not Available Not Available No t Available insulin lispro (U-100) 100 unit/mL subcutaneou s solution INJECT 10 UNITS SUBCUTANE OUSLY THREE TIMES DAILY WITH MEALS 09/27 completed Not Available Not Available Not Available levofloxaci n 500 mg tablet TK 1 T PO Q 24 H 05/13 completed Not Available Not Available Not Available levofloxaci n 750 mg tablet TAKE 1 TABLET BY MOUTH EVERY 48 HOURS 12/24 completed Not Available Not Available Not Available methylpredn isolone 4 mg tablets in a dose pack TAKE BY MOUTH DIRECTED ON INSIDE OF PACKAGE 09/27 completed Not Available Not Available Not Available albuterol sulfate HFA 90 mcg/actuati on aerosol inhaler INHALE 2 PUFFS BY MOUTH EVERY 6 HOURS NEEDED FOR SHORTNESS OF BREATH active Not Available Not Available No t Available ondansetron 4 mg disintegrat ing tablet 01/27 completed Not Available Not Available Not Available losartan 100 mg tablet TAKE 1 TABLET BY MOUTH ONCE DAILY active Not Available Not Available No t Available fluticasone propionate 50 mcg/actuati on nasal spray,suspe nsion USE 2 SPRAY(S) IN EACH NOSTRIL ONCE DAILY active Not Available Not Available No t Available dicyclomine 10 mg capsule TAKE 1 CAPSULE BY MOUTH THREE TIMES DAILY NEEDED 03/08 completed Not Available Not Available Not Available insulin syringe U-100 with needle 0.5 mL 31 gauge x 11/08 completed Not Available Not Available Not Available ipratropium bromide 21 mcg (0.03 %) nasal spray 01/27 completed Not Available Not Available Not Available neomycin 3.5 mg/g-polymy samir B 10,000 unit/g-dexa meth 0.1 % eye oint active Not Available Not Available Not Available insulin lispro (U-100) 100 unit/mL subcutaneou s pen INJECT 6 TO 10 UNITS SUBCUTANE OUSLY TWICE DAILY BEFORE BREAKFAST AND BEFORE SUPPER active Not Available Not Available No t Available ezetimibe 10 mg tablet TAKE 1 TABLET BY MOUTH ONCE DAILY IN THE MORNING active Not Available Not Available No t Available rosuvastati n 40 mg tablet Take 1 tablet twice a week by oral route at bedtime for 30 days. 01/27 completed Not Available Not Available Not Available metoprolol tartrate 25 mg tablet TAKE 1 TABLET BY MOUTH TWICE DAILY active Not Available Not Available No t Available nitrofurant oin monohydrate /macrocryst als 100 mg capsule 01/27 completed Not Available Not Available Not Available lactulose 10 gram/15 mL oral solution Take 15 mL twice a day by oral route for 30 days. active Not Available Not Available No t Available 8 Hour Pain Reliever 650 mg tablet,exte nded release TAKE 2 TABLETS BY MOUTH EVERY 8 HOURS NEEDED FOR 10 DAYS 07/19 completed Not Available Not Available Not Available albuterol sulfate 01/20 completed Not Available Not Available Not Available Levemir FlexPen 100 unit/mL (3 mL) solution subcutaneou s insulin pen INJECT 40 UNITS SUBCUTANE OUSLY IN THE MORNING AND 50 UNITS AT BEDTIME 12/24 completed Not Available Not Available Not Available peg 3350 240 gram-electr olytes 22.72 gram-6.72 g-5.84 g powdr for soln MIX AND DRINK UTD 01/27 completed Not Available Not Available Not Available Lantus Solostar U-100 Insulin 100 unit/mL (3 mL) subcutaneou s pen INJECT 26 UNITS SUBCUTANE OUSLY NIGHTLY active Not Available Not Available No t Available GaviLyte-N 420 gram oral solution 01/27 completed Not Available Not Available Not Available OneTouch Verio test strips USE 1 STRIP TO CHECK GLUCOSE THREE TIMES DAILY active Not Available Not Available No t Available alogliptin 25 mg tablet TAKE 1 TABLET BY MOUTH ONCE DAILY DIRECTED 03/04 completed Not Available Not Available Not Available alogliptin 12.5 mg tablet TK 2 TS PO QD 03/04 completed Not Available Not Available Not Available Victoza 3-Ap 0.6 mg/0.1 mL (18 mg/3 mL) subcutaneou s pen injector INJECT 0.6 MG SUBCUTANI OUSLY ONCE DAILY WITH LARGE MEAL FOR 1 WEEK THEN INCREASE TO 1.2MG ONCE DAILY active Not Available Not Available No t Available Farxiga 10 mg tablet TAKE 1 TABLET BY MOUTH ONCE DAILY active Not Available Not Available No t Available Jardiance 10 mg tablet 01/27 completed Not Available Not Available Not Available Jardiance 25 mg tablet TAKE 1 TABLET BY MOUTH ONCE DAILY IN THE MORNING FOR 90 DAYS 01/20 completed Not Available Not Available Not Available Trulicity 1.5 mg/0.5 mL subcutaneou s pen injector Inject 1.5 mg every week by subcutane ous route at dinner for 90 days. 08/28 completed Not Available Not Available Not Available Trulicity 0.75 mg/0.5 mL subcutaneou s pen injector INJECT 1 SUBCUTANE OUSLY ONCE A WEEK 12/24 completed Not Available Not Available Not Available OneTouch Verio Meter 08/28 completed Not Available Not Available Not Available TRUEplus Pen Needle 32 gauge x 5/32 USE 1 ONCE DAILY active Not Available Not Available No t Available OneTouch Delica Plus Lancet 30 gauge USE 1 TO CHECK GLUCOSE THREE TIMES DAILY 08/28 completed Not Available Not Available Not Available FreeStyle Alex 2 Sensor kit CHANGE SENSOR EVERY 14 DAYS 12/03 completed Not Available Not Available Not Available FreeStyle Alex 2 [place] USE DIRECTED 08/28 completed Not Available Not Available Not Available Trulicity 3 mg/0.5 mL subcutaneou s pen injector INJECT 1 PEN SUBCUTAIN EOUSLY DAILY AT DINNER 12/24 completed Not Available Not Available Not Available BinaxNOW COVID-19 Ag Self Test kit Use as Directed on the Package 03/02 completed Not Available Not Available Not Available Paxlovid 300 mg (150 mg x 2)-100 mg tablets in a dose pack 01/20 completed Not Available Not Available Not Available Vitals Date Recorded Body height Body mass index (BMI) Body weight Provider Name and Address Organization Details Last Updated DateTime 12/25/2023 154.94 cm 28.5 kg/m2 72572.45 g Yue Patrizia Bango [facility] 12/25/2023 10:21:06 Date Recorded Body height Body mass index (BMI) Body weight Pain severity - 0-10 verbal numeric rating [Score] - Reported Provider Name and Address Organization Details Last Updated DateTime 02/05/2024 154.94 cm 29.3 kg/m2 59976.82 g 2 ZIA Padilla [facility] [employer] [facility] 02/05/2024 10:06:29 Date Recorded Body height Body mass index (BMI) Body weight Heart rate Respiratory rate Oxygen saturation Oxygen saturation in Arterial blood by Pulse oximetry Systolic blood pressure Diastolic blood pressure Provider Name and Address Organization Details Last Updated DateTime 4 154.94 cm 29.3 kg/m2 04914.8 2 g 86 /min 14 /min 99 % 99 % 118 mm[Hg] 71 mm[Hg] Zohreh Cristobal [facility] [employer] [facility] 16:45:00 Date Recorded Body height Body mass index (BMI) Body weight Pain severity - 0-10 verbal numeric rating [Score] - Reported Provider Name and Address Organization Details Last Updated DateTime 04/29/2024 154.94 cm 29.3 kg/m2 15706.82 g 5 ZIA Padilla [facility] [facility] 04/29/2024 10:35:42 Date Recorded Body height Body mass index (BMI) Body weight Heart rate Respiratory rate Oxygen saturation Oxygen saturation in Arterial blood by Pulse oximetry Systolic blood pressure Diastolic blood pressure Provider Name and Address Organization Details Last Updated DateTime 5 154.94 cm 29.3 kg/m2 65115.8 2 g 71 /min 14 /min 98 % 98 % 141 mm[Hg] 86 mm[Hg] Zohreh Cristobal [facility] 5 17:30:32 Social History Question Answer Notes LastModified by Organizat ion Details LastModified Time Tobacco Smoking Status Never Smoker Not Available [facility] 08/24/2022 18:35:25 What Is Your Level Of Alcohol Consumption? None [id number] Information not available 08/24/2022 What Is Your Level Of Caffeine Consumption? Occasional [id number] Information not available 08/24/2022 In The 14 Days Before Symptom Onset, Have You Had Close Contact With A Laboratory-confir med COVID-19 While That Case Was Ill? No [id number] Information not available 08/24/2022 In The 14 Days Before Symptom Onset, Have You Had Close Contact With A Person Who Is Under Investigation For COVID-19 While That Person Was Ill? 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 12/25/2023 [email or web address] Information not available 12/25/2023 What Is Your Relationship Status? [id number] Information not available 08/24/2022 Have You Recently Traveled Abroad? No [id number] Information not available 08/24/2022 Sex: Female Functional Status None recorded. Mental Status None recorded. Family History Relationship Description Onset Age of this Age Resolved Age Notes LastModified by Organization Details LastModified Time Mother Essential hypertension [email or web address] Not available 10:22:36 Mother Diabetes mellitus [email or web address] Not available 12/24 10:22:54 Unspecified Relation Kidney disease [id number] Not available 08/24/2022 18:35:28 Unspecified Relation Diabetes mellitus [id number] Not available 08/24/2022 18:35:28 Sister Cerebrovascu lar accident [id number] Not available 08/24/2022 18:35:28 Father Essential hypertension Not available 10:22:39 Father Diabetes mellitus [email or web address] Not available 12/24 10:22:49 Medical History Condition Response ARTHRITIS Y USE OF BLOOD THINNERS Y ANEMIA/BLOOD DISORDER Y DIABETES, TYPE Y OSTEOPOROSIS Y LUNG DISEASE/DISORDER Y DEPRESSION (INCLUDING POST ) Y HAVE YOU BEEN HOSPITALIZED OR SEEN IN TH E ER IN THE PAST YEAR ? Y HYPERTENSION Y Gynecological HistoryNo gynecological history recorded. Obstetrics History GPAL:G 0 P 0 0 0 0 Past Encounters Encounter ID Performer Location Encounter Start Date Encounter Closed Date Diagnosis/Indication Diagnosis SNOMED-CT Code Diagnosis ICD10 Code Diagnosis Note [id number] [facility] [place] [address] [place] [address] 01/27/2021 00:00:00 01/27/2021 18:19:21 [id number] _FEROZ_ IGRATION_ DEFAULT_1 _1 , 02/05/2021 00:00:00 02/15/2021 10:32:29 [id number] _MILADYSENA_M IGRATION_ DEFAULT_1 _1 , 03/04/2021 00:00:00 03/06/2021 10:48:10 [id number] [facility] [place] [address] [place] [address] 03/23/2021 00:00:00 03/23/2021 14:34:25 [id number] [facility] [place] [address] [place] [address] 05/18/2021 00:00:00 05/18/2021 14:18:19 [id number] [facility] [place] [address] [place] [address] 05/25/2021 00:00:00 05/25/2021 12:04:03 [id number] [facility] [place] [address] [place] [address] 06/22/2021 00:00:00 06/22/2021 13:55:23 [id number] _FEROZ_ IGRATION_ DEFAULT_1 _1 , 08/12/2021 00:00:00 08/12/2021 12:16:31 [id number] [facility] [place] [address] [place] [address] 08/24/2021 00:00:00 08/24/2021 14:09:31 [id number] [facility] [place] [address] [place] [address] 10/19/2021 00:00:00 10/19/2021 10:49:18 [id number] [facility] [place] [address] [place] [address] 12/17/2021 00:00:00 12/17/2021 11:57:43 [id number] _ATHENA_M IGRATION_ DEFAULT_1 _1 , 01/20/2022 00:00:00 01/20/2022 16:46:55 [id number] [facility] [place] [address] [place] [address] 03/08/2022 00:00:00 03/08/2022 12:05:57 [id number] [facility] [place] [address] [place] [address] 04/26/2022 00:00:00 04/26/2022 10:05:35 [id number] [facility] [place] [address] [place] [address] 05/31/2022 00:00:00 05/31/2022 11:07:11 [id number] [facility] [place] [address] [place] [address] 06/01/2022 00:00:00 06/01/2022 16:44:47 [id number] [facility] [place] [address] [place] [address] 06/21/2022 00:00:00 06/21/2022 13:51:57 [id number] [facility] [place] [address] [place] [address] 07/19/2022 00:00:00 07/19/2022 12:58:42 [id number] [facility] [place] [address] [place] [address] 08/23/2022 00:00:00 08/23/2022 17:22:53 [id number] ORESTES Driscoll [facility] [place] [address] [place] [address] 09/21/2022 16:15:54 09/21/2022 17:15:54 Pain of right shoulder joint 0274115179 6385185 M25.511 Impingemen t syndrome of right shoulder region 7544438706 90295 M75.41 Cervical radiculopathy 77920332 M54.12 [id number] Tee Kitchen MD [facility] [place] [address] [place] [address] 10/25/2022 10:29:31 10/25/2022 10:57:09 Pain of right shoulder joint 7011489048 9744216 M25.511 Impingemen t syndrome of right shoulder region 9490154685 05006 M75.41 patient will continue with physical therapy working on range of motion of her elbow and shoulder strengthen ing. We will see her back if worsening of symptoms only. 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 Study show 80% of patients do well with the decompress ion of the nerve with a recurrence or a lack of improvemen t in only 20% she appears to be making progress at this point the with good return of strength and good return of her sensation now [id number] Lio Angel DPM [facility] [place] [address] [place] [address] 11/03/2022 15:23:54 11/03/2022 17:25:55 Bunion 818640049 M21.619 right footeducat ed on treatment optionsFor now continue conservati ve therapy with offloading to prevent wounds infection Hammer toe 771007347 M20 .41 right 5th toeas above Foot callus 991899196 L8 4 debrided sub 5th metatarsal headContin ue supportive shoerecomm end accommodat drew diabetic inserts to prevent wounds infection Pain in left foot 627339 7127 90792 M79.672 as above [id number] Kat Randle NP [facility] [place] [address] [place] [address] 01/09/2023 10:44:40 01/09/2023 11:32:43 Pain of right knee joint 3483837178 86651 M25.561 [id number] Ghada Laws MD [facility] [place] [address] [place] [address] 02/09/2023 15:50:40 02/09/2023 17:33:29 Uncontrolled type 2 diabetes mellitus 859803146 E11.65 a1c of 10.7% up from 8.5%- patient not taking her levemir as recommende d for the past two years and patient has still not followed our recommenda tions to split her levemir for full coverage over 24 hour period. She has not used the CGM we have provided and she has this at home and has not come in for placement or tutorial of her CGM and she has had this since fall. She was reminded once again to split levemir and take 35 units in morning and 40 units at bedtime and to increase or decrease by 3 units every 3 days until fasting glucose 90-130 mg/dL. Continue on trulicity but uptitrate to 3 mg once weekly and continue glimepirid e scale, metformin and farxiga. She is aware to use lispro for rescue only take 2U:50>200 mg/dL on premeal. She was advised to bring in her freestyle sensor and we can help patient place this so she can have better knowledge in care and adjustment of her diabetic regimen and insulin-pe r patient her daughter is a nurse and she will have her daughter do this- I inquired to how long does it take your daughter to help since she has had this sensor for over 1 year now. She is aware she is putting her life at risk by not caring for her diabetes as heart attack and stroke run high in her family and she is not controllin g her glucose patterns. Patient is aware she is high risk for diabetic complicati ons such as CAD, stroke, blindness, renal failure and gastropare sis if she doesn't take her health seriously and follow recommenda tions made by her health care providers. I had a very thorough discussion regarding diabetes and complicati ons of diabetes. Risks, benefits and side effects of all medication s and therapy up to and including were discussed in detail with patient. This included not following physician recommenda tions. Patient is alert and oriented times four. Patient made their own informed and educated decision regarding her diabetic care and concern. Dyslipidemia 658390118 E 78.5 Continue statin therapy. Spent up to 25 minutes preparing to see the patient (eg, review of tests), obtaining and/or reviewing separately obtained history, performing a medically appropriat e examinatio n and evaluation , counseling and educating the patient, ordering medication s, tests, along with documentin g clinical informatio n in the electronic health record, independen tly interpreti ng results and communicat ing results to the patient. Patient can be followed by PCP - she/he is aware of my resignatio n and last day of April 07. If needed his/her PCP can refer patient to another endocrinol ogist in the area. All questions /concerns answered and refills necessary at visit today. [id number] ORESTES Driscoll [facility] [place] [address] [place] [address] 03/06/2023 11:56:25 03/06/2023 12:22:39 Pain of bilateral hands 9547234301 4847610 M79.641 M79.642 Acquired t latex dipper finger of left middle finger 0812554559 59347 M65.961 [id number] Lio Angel DPM [facility] [place] [address] [place] [address] 03/13/2023 17:23:56 03/14/2023 16:00:37 Foot callus 442610556 L84 debrided sub 5th metatarsal headContin ue supportive shoerecomm end accommodat drew diabetic inserts to prevent wounds infection Bunion 928786591 M21.61 9 right footeducat ed on treatment optionsFor now continue conservati ve therapy with offloading to prevent wounds infection Hammer toe 835061602 M20 .41 right 5th toeas above Pain in left foot 246611 5804 53294 M79.672 as above [id number] Lio Angel DPM [facility] [place] [address] [facility] [place] [address] 06/13/2023 16:28:48 06/14/2023 11:53:36 Pain in right foot 5972596533 47072 M79.671 secondary to hammertoe and bunion Hammer toe 959593874 M20 .41 right 5th toediscuss ed options in detail, denies surgerycon tinue conservati ve offloading to prevent wounds infection Foot callus 204394176 L8 4 debrided sub 5th metatarsal headContin ue supportive shoerecomm end use of pumice stone daily and Amlactin lotionreco mmend accommodat drew diabetic inserts to prevent wounds infection Diabetes mellitus 188595 09 E11.9 continue with diabetic control per PCPcheck foot daily for wounds infection, if present seek medical attention immediatel yContinue supportive shoe gear Bunion 652925970 M21.61 9 right footeducat ed on treatment optionsFor now continue conservati ve therapy with offloading to prevent wounds infection [id number] Dave Crane MD [facility] [address] [address] 2023 12:08:27 2023 12:42:00 Pain of bilateral hands 9780786901 2510864 M79.641 M79.642 Trigger fi nger of left hand 6342254673 8715997 M65.30 [id number] Dave Crane MD [facility] [address] [address] 09/04/2023 11:00:16 09/04/2023 11:18:27 Trigger finger of left hand 3422016071 9295157 M65.30 [id number] iLo Angel DPM [facility] [place] [address] [place] [address], [address] [place] [address] 09/12/2023 16:20:46 09/20/2023 16:02:48 Uncontrolled type 2 diabetes mellitus 749263393 E11.65 [id number] 10.7 on 02/07/2023 recommend better glucose controlrev iewed with patientpat ient is high risk for Charcot developmen t and other systemic diseases secondary to uncontroll ed diabetes- will require continued routine foot care Dystrophia unguium 25881 009 L60.3 nails debrided without incident Foot callus 238443669 L8 4 debrided sub 5th metatarsal headContin ue supportive shoerecomm end use of pumice stone daily and Amlactin lotionreco mmend accommodat drew diabetic inserts to prevent wounds infection Hammer toe 906861901 M20 .40 patient at this time is not a surgical candidate due to glucosedis cussed options in detailcont inued conservati ve management to prevent wounds [id number] Dave Crane MD [facility] [address] [place] [address] 10/02/2023 10:42:19 10/02/2023 11:34:11 Trigger finger of left hand 8100708815 1961699 M65.30 Pain of ri ght knee joint 4820301585 16488 M25.693 [id number] Dave Crane MD [facility] [place] [address] [place] [address] 10/11/2023 10:30:15 10/11/2023 11:48:43 Pain of left hand 2177989134 65240 M79.807 [id number] Dave Crane MD [facility] [place] [address] [place] [address] 10/25/2023 10:52:15 10/25/2023 11:12:28 Trigger finger of left hand 7804141729 4575064 M65.30 [id number] Dave Crane MD [facility]_[address] [address] 11/13/2023 10:04:01 11/13/2023 10:42:56 Trigger finger of left hand 0793165578 8794855 M65.332 Pain of bi lateral hands 4320616951 9781834 M79.641 M79.670 [id number] Lio Angel DPM [facility] [place] [address] [facility] [place] [address] 11/14/2023 16:41:02 11/14/2023 17:39:16 Uncontrolled type 2 diabetes mellitus 190977554 E11.65 Chronicrec ommend Good glucose controlrev iewed with patientpat ient is high risk for Charcot developmen t and other systemic diseases secondary to uncontroll ed diabetes- will require continued routine foot care Dystrophia unguium 33060 009 L60.3 nails debrided without incident Foot callus 794320058 L8 4 debrided sub 5th metatarsal headContin ue supportive shoerecomm end use of pumice stone daily and Amlactin lotionreco mmend accommodat drew diabetic inserts to prevent wounds infection Hammer toe 745759816 M20 .40 patient at this time is not a surgical candidate due to glucosedis cussed options in detailcont inued conservati ve management to prevent wounds [id number] Dave Crane MD [facility] [place] [address] [place] [address] 12/06/2023 08:53:19 12/06/2023 09:35:10 Pain of left hand 8114419038 49465 M79.642 Pain of le ft hip joint 7567303356 25606 M25.552 Osteoarthr itis of left hip joint 7165661836 45378 M16.12 [id number] Dave Crane MD [facility] [address] 12/25/2023 09:56:39 12/25/2023 10:58:56 Trigger finger of left hand 5493164380 4827785 M65.377 [id number] Dave Crane MD [facility] [address] 02/05/2024 10:01:02 02/05/2024 10:39:28 Trigger finger of left hand 4779164577 5286871 M65.332 Acquired t latex dipper finger of left middle finger 3730796246 79161 M65.332 Pain of left hand 118159 2947 11652 M79.699 [id number] Lio Angel DPM [facility] [place] [address] [facility] [place] [address] 04/02/2024 16:41:30 06/21/2024 09:24:48 Acquired deformity of toe 90409841 M20.61 right 5th toe Foot callus 437791579 L8 4 debrided sub 5th metatarsal head, rightConti nue supportive shoerecomm end use of pumice stone daily and Amlactin lotionreco mmend accommodat drew diabetic inserts to prevent wounds infection Dystrophia unguium 01298 009 L60.3 nails debrided without incident Pain in right foot 02446 60985 69691 M79.671 secondary to hammertoe and bunion Callosity on toe 20091003 01 L84 medial right IPJ great toe [id number] Dave Crane MD [facility] [place] [address] [place] [address] 04/29/2024 10:33:27 04/29/2024 11:03:44 Pain of left hand 7801816177 51795 M79.642 Dupuytren' s contracture of finger 305950707 M72.0 [id number] Lio Angel DPM [facility] [place] [address] [place] [address] 08/08/2024 16:31:20 08/23/2024 13:43:51 Diabetes mellitus 38993287 E11.9 continue with diabetic control per PCPcheck foot daily for wounds infection, if present seek medical attention immediatel yContinue supportive shoe gear Foot callus 331356003 L8 4 debrided sub 5th metatarsal head, rightConti nue supportive shoerecomm end use of pumice stone daily and Amlactin lotionreco mmend accommodat drew diabetic inserts to prevent wounds infection Hammer toe 652201600 M20 .40 continue conservati ve management recommend surgical correction but patient declines Dystrophia unguium 31496 009 L60.3 nails debrided without incident Health Concerns Section Related Observation LastModified by Organization Detai ls LastModified Time None Recorded Concern Status LastModified by Organization Details LastModified Time None Recorded Advance Directives Directive None Recorded Payers Encounter Date Sequence Insurance Name Policy Number Policy Whaley Covered Member ID Whaley Member ID Guarantor Name 12/25/2023 1 [facility] (MEDICAID HMO) [id number] Steffanie Dennis [id number] Steffanie Dennis 02/05/2024 1 [facility] (MEDICAID HMO) [id number] Steffanie Dennis [id number] Steffanie Dennis 04/02/2024 1 [facility] (MEDICAID HMO) [id number] Steffanie Dennis [id number] Steffanie Dennis 04/29/2024 1 [facility] (MEDICAID HMO) [id number] Steffanie Dennis [id number] Steffanie Dennis 08/08/2024 1 [facility] (MEDICAID HMO) [id number] Steffanie Dennis [id number] Steffanie Dennis Notes Date Note Type Note Provider Name and Address Organization Details Recorded Time 04/02/2024 text/html . Patient is a 63-year-old female who returns the office for follow-up on diabetic foot care. Patient states overall she is doing well she does have some right foot pain she also has some callusing to the foot which she denies any open wounds or infection. Patient states the calluses do cause her some minor discomfort with weight-bearing. Patient denies any other complaints. Lio Angel DPM [address] [place] [address], [phone], [facility] [place] [facility] [employer] 04/29/2024 10:40:33 OBGyn Episode No OBEpisode recorded.
--- OUTSIDE RECORDS SUMMARY | 2024-10-01 13:23 | XMS_ITS | CONTINUITY OF CARE DOCUMENT ---
Author Name leydisurjit leydisurjit Address Unknown Organization [facility] Address [address] [place] [address] Phone [phone] Care Team Providers Care Battery Hand Name Role Phone Dennys Tapia MD Unavailable [phone] MARIA D MURPHY MD Unavailable MARIA D MURPHY MD Unavailable PROBLEMS Condition Status Date Provider Notes Dyspnea active Ramonita Andrea Chest pain-type to be determined active Ashutosh Tapia MD Shortness of breath on exertion active Sravani Tapia MD HTN essential active Dennys Tapia MD Diabetes mellitus active Dennys Tapia MD ENCOUNTERS Date Type Provider Location Encounter Diag nosis - In-person encounter Office Visit Dennys Tapia MD [facility] - In-person encounter Office Visit Dennys Tapia MD [facility] - In-person encounter Office Visit Dennys Tapia MD [place] Chest pain-type to be determinedShortness of breath on exertionHTN essentialDiabetes mellitus VITAL SIGNS Date Observation Value Provider Body Mass Index (Ratio) 29.85 kg/m2 Sravani Tapia MD pulse rate 84 /min Romina Colunga blood pressure, diastolic 90 mm[Hg] An jone Keanu blood pressure, systolic 141 mm[Hg] Any amie Keanu oxygen saturation, oximetry 98 % Romina Keanu weight E&M 158 [lb_av] Romina Keanu blood pressure, cuff size large An jone Keanu height E&M 61 [in_i] Romina Keanu Body Mass Index (Ratio) 30.23 kg/m2 Sravani Tapia MD blood pressure, cuff size regular Ja rr blood pressure, diastolic 89 mm[Hg] Ja rret blood pressure, systolic 135 mm[Hg] Jar ret pulse rate 92 /min Ravindra respiratory rate E&M 12 /min Ravindra oxygen saturation, oximetry 98 % Ravindra weight E&M 160 [lb_av] Ravindra y height E&M 61 [in_i] Ravindra y Body Mass Index (Ratio) 30.04 kg/m2 Sravani Tapia MD blood pressure, diastolic 90 mm[Hg] Juliana nkLogic blood pressure, systolic 139 mm[Hg] Shy kLogparmjit blood pressure, diastolic 90 mm[Hg] Camille Romero blood pressure, systolic 139 mm[Hg] Axel Romero oxygen saturation, oximetry 98 % Anette Romero respiratory rate E&M 16 /min Tori Romero pulse rate 85 /min Anette cortez height E&M 61 [in_i] Anette cortez weight E&M 159 [lb_av] Anette cortez blood pressure, cuff size large Mi lorrie Romero ALLERGIES Allergy Name Onset Date Reaction Criticality Status TETANUS Low Criticality active PENICILLIN High Criticality active IVP DYE Low Criticality active HISTORY OF MEDICATION USE Medication Status Instructions Dates Provider Indications Com ments isosorbide mononitrate 30 mg tablet extended release 24 hr active TAKE 1 TABLET BY MOUTH DAILY. 8 Dennys Tapia MD ranolazine 500 mg tablet extended release 12 hr completed Take 1 tablet by mouth twice a day 0 - 8 Dennys Tapia MD aspirin 81 mg tablet,delayed release (DR/EC) active Take 1 tablet by mouth once a day 3 Cash Eaton NP metoprolol tartrate 25 mg tablet active Take 1 tablet by mouth twice a day 8 Dennys Tapia MD Trulicity 0.75 mg/0.5 mL pen injector active weekly Adela Wright NP Levemir FlexTouch U-100 Insuln 100 unit/mL (3 mL) insulin pen active Anette Romero albuterol sulfate 90 mcg/actuation HFA aerosol inhaler active as needed Adela Wright NP losartan 100 mg tablet active daily Adela Wright NP ergocalciferol (vitamin D2) 1,250 mcg (50,000 unit) capsule active weekly Adela Wright NP montelukast 10 mg tablet active daily as needed Adela Wright NP nitroglycerin 0.4 mg tablet, sublingual active Anette Romero metformin 1,000 mg tablet active twice a day Adela Wright NP alendronate 70 mg tablet active weekly Adela Wright NP SOCIAL HISTORY Date Observation Value Provider smoking status Never smoker Romina Colunga social history reviewed E&M revi ewed - no changes required Cash Eaton NP social history E&M S moking History: Olga krystin has never smoked. Cash Eaton NP drug use no Cash Eaton NP alcohol use no Cash Eaton NP smoking status Never smoker Cash Rasheed i, NP social history E&M S moking History: P krystin has never smoked. Dennys Tapia MD social history reviewed E&M alireza hoganed - no changes required Dennys Tapia MD smoking status Never smoker Anette Nino and INSURANCE PROVIDERS Payer name Policy type / Coverage type Rena red republican ID [employer] Medicaid [id number] ADVANCE DIRECTIVES Name Date DISCUSSED - NO DECISION MADE TREATMENT PLAN Date Name Performer [id number],C,p t states that she had an episode of CP, last monday while sitting on side of bed. Sudden onset of CP, described as Pressure, 'like an elephant' 04/04, unchanged with inspiration or movement, non-radiating with associated SOB, and palpitations. Pt states that she took SL NTG x1, but pain still lingered for at least 30 min. no recurrence of CP or any other symptoms since. Pt had abnormal stress test, but cath 01/19 no angiographic CAD. could be d/t microvascular disease. option of ECP offered, pt is decling at this time. will add ranexa 500mg BID. Her updated medication list for this problem includes: Ranolazine 500 Mg Tablet Extended Release 12 Hr (Ranolazine) ..... Take 1 tablet by mouth twice a day Aspirin 81 Mg Tablet,delayed Release (dr/ec) (Aspirin) ..... Take 1 tablet by mouth once a day Metoprolol Tartrate 25 Mg Tablet (Metoprolol tartrate) ..... Take 1 tablet by mouth twice a day Nitroglycerin 0.4 Mg Tablet, Sublingual (Nitroglycerin) Adela Wright ROUND CUTTER OPERATOR [id number],C, B P today: 141/90 P rior BP: 135/89 (01/05/2023) Her updated medication list for this problem includes: Losartan 100 Mg Tablet (Losartan) ..... Daily Aspirin 81 Mg Tablet,delayed Release (dr/ec) (Aspirin) ..... Take 1 tablet by mouth once a day Metoprolol Tartrate 25 Mg Tablet (Metoprolol tartrate) ..... Take 1 tablet by mouth twice a day Adela Wright NP [id number],C,follows Dr. Neal Wright NP [id number],Yudy Bailey per PCP. H er updated medication list for this problem includes: Aspirin 81 Mg Tablet,delayed Release (dr/ec) (Aspirin) ..... Take 1 tablet by mouth once a day Trulicity 0.75 Mg/0.5 Ml Pen Injector (Dulaglutide) Levemir Flextouch U-100 Insuln 100 Unit/ml (3 Ml) Insulin Pen (Insulin detemir u-100) Losartan 100 Mg Tablet (Losartan) Metformin 1,000 Mg Tablet (Metformin) Yarahenrry Angelito PARSONS [id number],C, B P today: 135/89 P rior BP: 139/90 (10/21/2022) Her updated medication list for this problem includes: Aspirin 81 Mg Tablet,delayed Release (dr/ec) (Aspirin) ..... Take 1 tablet by mouth once a day Metoprolol Tartrate 25 Mg Tablet (Metoprolol tartrate) ..... Take 1 tablet by mouth twice a day Losartan 100 Mg Tablet (Losartan) Cash Eaton NP [id number],C, S he had a positive stress test. She continues to have chestt pain described as pressure like with heaviness. She as some associtaed shortness of breath as noted above. W ill schedule for LT/RT cardiac cath Cash Eaton NP [id number],C, P atient reports shortness of breath with exertion and with activity of daily living as well as prolonged conversations. W ill schedule for cardiac cath as noted below. Cash Eaton NP [id number],S, Dennys Tapia MD [id number],C,T his is concerning for angina. However, she has a negative EKG and I think she should undergo a stress test to evaluate whether this is true ischemia or not. In the meantime, she should take a baby aspirin and nitro, and if the discomfort doesn't improve, she should go to the ER. Dennys Tapia MD Cardiology:pt states that she had an episode of CP, last monday while sitting on side of bed. Sudden onset of CP, described as Pressure, 'like an elephant' 04/04, unchanged with inspiration or movement, non-radiating with associated SOB, and palpitations. Pt states that she took SL NTG x1, but pain still lingered for at least 30 min. no recurrence of CP or any other symptoms since. Pt had abnormal stress test, but cath 01/19 no angiographic CAD. could be d/t microvascular disease. option of ECP offered, pt is decling at this time. will add ranexa 500mg BID. Her updated medication list for this problem includes: Ranolazine 500 Mg Tablet Extended Release 12 Hr (Ranolazine) ..... Take 1 tablet by mouth twice a day Aspirin 81 Mg Tablet,delayed Release (dr/ec) (Aspirin) ..... Take 1 tablet by mouth once a day Metoprolol Tartrate 25 Mg Tablet (Metoprolol tartrate) ..... Take 1 tablet by mouth twice a day Nitroglycerin 0.4 Mg Tablet, Sublingual (Nitroglycerin) Adela Wright NP Cardiology: B P today: 141/90 P rior BP: 135/89 (01/05/2023) Her updated medication list for this problem includes: Losartan 100 Mg Tablet (Losartan) ..... Daily Aspirin 81 Mg Tablet,delayed Release (dr/ec) (Aspirin) ..... Take 1 tablet by mouth once a day Metoprolol Tartrate 25 Mg Tablet (Metoprolol tartrate) ..... Take 1 tablet by mouth twice a day Adela Wright NP Cardiology:follows Dr. Veto Wright NP Cardiology: Yudy kelley per PCP. H er updated medication list for this problem includes: Aspirin 81 Mg Tablet,delayed Release (dr/ec) (Aspirin) ..... Take 1 tablet by mouth once a day Trulicity 0.75 Mg/0.5 Ml Pen Injector (Dulaglutide) Levemir Flextouch U-100 Insuln 100 Unit/ml (3 Ml) Insulin Pen (Insulin detemir u-100) Losartan 100 Mg Tablet (Losartan) Metformin 1,000 Mg Tablet (Metformin) Yarahenrry Angelito PARSONS Cardiology: B P today: 135/89 P rior BP: 139/90 (10/21/2022) Her updated medication list for this problem includes: Aspirin 81 Mg Tablet,delayed Release (dr/ec) (Aspirin) ..... Take 1 tablet by mouth once a day Metoprolol Tartrate 25 Mg Tablet (Metoprolol tartrate) ..... Take 1 tablet by mouth twice a day Losartan 100 Mg Tablet (Losartan) Yarahenrry Angelito PARSONS Cardiology: S he had a positive stress test. She continues to have chestt pain described as pressure like with heaviness. She as some associtaed shortness of breath as noted above. W ill schedule for LT/RT cardiac cath Cash Eaton NP Cardiology: P atient reports shortness of breath with exertion and with activity of daily living as well as prolonged conversations. W ill schedule for cardiac cath as noted below. Cash Eaton NP Cardiology Dennys Tapia MD Cardiology:This is c oncerning for angina. However, she has a negative EKG and I think she should undergo a stress test to evaluate whether this is true ischemia or not. In the meantime, she should take a baby aspirin and nitro, and if the discomfort doesn't improve, she should go to the ER. Dennys Tapia MD Date Name PROTHROMBIN TIME WIT H INR LIPID PANEL CBC (INCLUDES DIFF/P LT) BASIC METABOLIC PANE L W/EGFR Stress Regadenoson Complete Echo HISTORY OF PROCEDURES Procedure Date Procedure Name Provider Procedure Notes S tatus Holter, 24 or 48 Trent Uriarte MD co mpleted
--- OUTSIDE RECORDS SUMMARY | 2024-10-01 13:23 | XMS_ITS | Clinical Summary ---
Author Organization [facility] Address [address] [place] [address] Care Team Providers Care Operating Manager Name Role Phone Montserrat Bellamy MD Primary Care Provider Source Comments [facility],non-owned Affiliates and Associated Physician Practices is amultiple site organization consisting of ambulatory clinics and hospital sitesin [place], [place], [place] and [place]. This disclosure is being madepursuant to the Care Everywhere program and may not contain all information available regarding this patient. Last updated 18.[facility] Allergies Active Allergy Reactions Criticality Noted Date Comments Contrast-Iodinated Agents For Ct/Other Urticaria Medium 09/16/2023 Penicillins Itching 09/16/2023 Pt reports yeast infections with use Tetanus Antitoxin Urticaria Medium 09/16/2023 Tetanus Toxoid Adsorbed Rash Medium 08/13/2024 Medications * Be aware that medications may not be up to date on this document. Alwaysverify current medications with the patient. Medication Sig Dispensed Refills Start Date End Date Status metFORMIN (Glucophage) 1000 MG tablet Take 1 (one) tablet by mouth 2 times daily 10/10/2023 Active metoprolol tartrate IR (Lopressor) 25 MG tablet Take 1 (one) tablet by mouth 2 times daily 10/21/2022 Active Farxiga 10 MG tablet Take 1 (one) tablet by mouth once daily 10/10/2023 Active losartan (Cozaar) 100 MG tablet Take 1 (one) tablet by mouth once daily Active montelukast (Singulair) 10 MG tablet TAKE 1 TABLET BY MOUTH ONCE DAILY AT BEDTIME FOR 30 DAYS Active nitroGLYCERIN (Nitrostat) 0.4 MG tablet nitroglycerin 0.4 mg tablet, sublingual Active Victoza 18 MG/3ML pen Inject 1.2 mg subcutaneously once daily 01/05/2024 Active Lantus SoloStar pen INJECT 26 UNITS SUBCUTANEOUSLY NIGHTLY 11/01/2023 Active insulin lispro (HumaLOG;ADMelog) 100 UNIT/ML pen Inject 12 (twelve) Units subcutaneously 2 times daily, before breakfast and supper 10/10/2023 Active albuterol HFA (Proventil; Ventolin; Proair) 108 (90 Base) MCG/ACT inhaler Inhale 2 (two) puffs by mouth every 6 hours as needed Active aspirin EC (Ecotrin) 81 MG tablet Take 1 (one) tablet by mouth once daily Active vitamin D, ergocalciferol, (Drisdol) 1.25 MG (81817 UT) capsule Take 1 (one) capsule by mouth every 30 days Active gabapentin (Neurontin) 100 MG capsuleIndication s:Nonintractable headache, unspecified chronicity pattern, unspecified headache type,Headache, cervicogenic,Migr marino without aura and without status migrainosus, not intractable Take 2 (two) capsules by mouth at bedtime 60 capsule 5 09/27/2024 Active Active Problems Problem Noted Date Diagnosed Date OA (osteoarthritis) 09/27/2024 Pain in right shoulder 11/04/2015 Encounters Date Type Department Care Team Description 09/27/2024 9:00 AM CDT [facility] [address] [place] [phone] Anusha Morris, PUBLIC AFFAIRS OFFICER-PHARMACY GRAD INTERN Migraine without aura and without status migrainosus, not intractable (Primary Dx); Nonintractable headache, unspecified chronicity pattern, unspecified headache type; Headache, cervicogenic; Chiari malformation type I (HCC) 09/27/2024 Travel 09/25/2024 Orders Only [facility] - ENT [address] [place] [address] Elyssa Gamboa RN Abnormal MRI 09/25/2024 Telephone [facility] - [facility]NT [address] [place] [address] Elyssa Gamboa, licensed land surveyor (For audiogram) 09/20/2024 Travel 08/15/2024 Travel 08/13/2024 8:30 AM ORACLE DATABASE ARCHITECT Office Visit [facility] - Neurosurgery [address] [place] [address], [place] [phone] Douglas Macdonald MD Nonintractable headache, unspecified chronicity pattern, unspecified headache type (Primary Dx); Mastoiditis of right side 08/13/2024 Travel 08/06/2024 Travel from Last 3 Months Social History Tobacco Use Types Packs/Day Years Used Date Smoking Tobacco: Never Tobacco Cessation:Counseling Given: No Alcohol Use Standard Drinks/Week Comments Never 0 (1 standard drink = 0.6 oz pur e alcohol) Sex and Gender Information Value Date Recorded Sex Assigned at Not on file Gender Identity Not on file Sexual Orientation Not on file Last Filed Vital Signs Vital Sign Reading Time Taken Comments Blood Pressure 156/89 09/27/2024 8:58 AM CDT patient didn't take meds. Pulse 81 09/27/2024 8:58 AM CDT Temperature 36.6 C (97.8 F) 08/13/2024 8:29 AM ORACLE DATABASE ARCHITECT Respiratory Rate 16 09/16/2023 12:0 7 AM CDT Oxygen Saturation 98% 09/27/2024 8:5 8 AM CDT Inhaled Oxygen Concentration - - Weight 73 kg (161 lb) 09/27/2024 8:58 AM CDT Height 154.9 cm (5' 1 ) 08/13/2024 8:29 AM [employer]ACLE DATAB[employer] ARCHITECT Body Mass Index 30.42 08/13/2024 8:29 AM ORACLE DATABASE ARCHITECT Plan of Treatment Upcoming Encounters Date Type Department Care Team (Late st Contact Info) Description 01/27/2025 10:00 AM CDT Office Visit [facility] - Neurology [address] [place] [phone] Anusha Morris, PUBLIC AFFAIRS OFFICER-PHARMACY GRAD INTERN [address] [place] [address] [place] [phone] Health Maintenance Due Date Last Done Comments COLOGUARD (AGES 45-75) - COLON CA SCREENING 1961 COLON MONITORING 1961 COLONOSCOPY - COLON CA SCREENING 1961 CT COLONOGRAPHY - COLON CA SCREENING 1961 Colorectal Cancer Screening 1961 FIT - COLON CA SCREENING 1961 FLEX SIG - COLON CA SCREENING 1961 MAMMOGRAM 1961 PAP SMEAR 1961 HIV SCREENING 1976 HEPATITIS C SCREENING 07/20/1979 DTAP/TDAP/TD VACCINES (1 - Tdap) 1980 PNEUMOCOCCAL VACCINE 50+ (1 of 1 - PCV) 2011 ZOSTER VACCINE (1 of 2) 2011 Respiratory Syncytial Virus (RSV) Vaccine Pt: or over 60 yrs (1 - Risk 60-74 years 1-dose series) 2021 COVID-19 VACCINE ( season) 2024 07/31/2023, 09/05/2022, 07/06/2021, Additional history exists DEPRESSION SCREENING 06/26/2024 INFLUENZA VACCINE (Season Ended) 2025 05/31/2023, 05/02/2022, 06/28/2021, Additional history exists SCREENING FOR DIABETES 09/15/2026 09/16/2023 LIPID TESTING 01/07/2027 01/07/2022, 12/24, 01/05/2022 HEPATITIS B VACCINE Aged Out No longe r eligible based on patient's age to complete this topic HIB VACCINE Aged Out No longer eligi ble based on patient's age to complete this topic HPV VACCINE Aged Out No longer eligi ble based on patient's age to complete this topic MENINGOCOCCAL (Group B) VACCINE SHARED DECISION-MAKING Aged Out No longer eligible based on patient's age to complete this topic MENINGOCOCCAL GROUPS A/C/Y/W VACCINE Aged Out No longer eligible based on patient's age to complete this topic Procedures Procedure Name Priority Date/Time Associated Diagnosis Comments COMPREHENSIVE METABOLIC PANEL STAT 09/16/2023 12:22 AM CDT from Last 3 Months or Most Recently Relevant to Health Maintenance Results * (ABNORMAL) COMPREHENSIVE METABOLIC PANEL (09/16/2023 12:22 AM CDT) BUN 17 7 - 26 mg/dL 09/16/2023 1:00 AM [facility] Creatinine 1.01(H) 0.56 - 0.96 mg/dL 09/16/2023 1:00 AM [facility] Sodium 136 136 - 145 mmol/L 09/16/2023 1:00 AM [facility] Potassium 4.6(H) 3.5 - 4.5 mmol/L 09/16/2023 1:00 AM [facility] Chloride 104 98 - 107 mmol/L 09/16/2023 1:00 AM [facility] CO2 21(L) 22 - 29 mmol/L 09/16/2023 1:00 AM [facility] Glucose 235(H) 70 - 115 mg/dL 09/16/2023 1:00 AM [facility] Calcium 9.4 8.4 - 10.2 mg/dL 09/16/2023 1:00 AM [facility] Protein Total 7.4 6.0 - 8.3 g/dL 09/16/2023 1:00 AM [facility] Albumin 3.7 3.4 - 5.0 g/dL 09/16/2023 1:00 AM [facility] Bilirubin Total 0.4 0.2 - 1.2 mg/dL 09/16/2023 1:00 AM [facility] Alkaline Phosphatase 98 40 - 150 U/L 09/16/2023 1:00 AM [facility] ALT 12 5 - 55 U/L 09/16/2023 1:00 AM [facility] AST 21 5 - 34 U/L 09/16/2023 1:00 AM [facility] Anion Gap 11 6 - 16 09/16/2023 1:00 AM [facility] BUN/Creatinine Ratio 17 7 - 23 09/16/2023 1:00 AM [facility] Osmolality Calculated 291 275 - 295 mOsm/kg 09/16/2023 1:00 AM [facility] Albumin/Globulin Ratio 1.0(L) 1.1 - 2.3 09/16/2023 1:00 AM [facility] eGFR by CKD-EPI 63(L) >=90 mL/min/1.7 3 m2 09/16/2023 1:00 AM CDT [facility] Blood BLOOD SPECIMEN / Unknown Venipuncture / Unknown 09/16/2023 12:22 AM CDT 09/16/2023 12:31 AM CDT Garrett Snyder MD LAB - CHEMISTRY JOHN CONRAD Performing Organization Address City/State/[facility] Co de Phone Number [facility] [address] [place] [address], [facility] [phone] from Last 3 Months or Most Recently Relevant to Health Maintenance Care Teams Operating Manager Relationship Specialty Start Date End Date Montserrat Bellamy MD [address] [place], [place] [id number] PCP - General 10/20/15
--- OUTSIDE RECORDS SUMMARY | 2024-10-01 13:23 | XMS_ITS | Clinical Summary ---
Author Organization [facility] Address [address] [place] [address] Phone Care Team Providers Care Video Recorder Mechanic Name Role Phone Montserrat Bellamy MD Primary Care Provider [phone] Allergies Active Allergy Reactions Criticality Noted Date Comments Iodinated Contrast Media Rash Low 07/19/2018 Penicillins Hives High 07/19/2018 Tetanus And Diphther. Tox (Pf) Rash Low 07/19 Medications losartan (COZAAR) 100 mg tablet Take 100 mg by mouth daily. 8 Active metFORMIN (GLUCOPHAGE) 1,000 mg tablet Take 1,000 mg by mouth 2 times daily with meals. 8 Active aspirin (ECOTRIN EC) 81 mg Tablet, Delayed Release (E.C.) Take 81 mg by mouth daily. Active albuterol HFA 90 mcg inhaler Take 2 Puffs by inhalation Continuous as needed for Shortness of Breath. Active dicyclomine (BENTYL) 20 mg tablet Take 1 Tablet (20 mg) by mouth 3 times daily before meals. 90 Tablet 4 9 Active pantoprazole (PROTONIX) 40 mg Tablet, Delayed Release (E.C.) Take 1 Tablet (40 mg) by mouth daily before breakfast. 30 Tablet 5 9 Active liraglutide (Victoza 2-Ap) 0.6 mg/0.1 mL (18 mg/3 mL) 2 mg. Active cetirizine (ZyrTEC) 10 mg tablet Take 1 Tablet (10 mg) by mouth daily. 1 2 Active dextromethorpha n-guaiFENesin (ROBITUSSIN DM) 10-100 mg/5 mL solution Take 5 mL by mouth every 4 hours as needed for Cough. 2 Active fluticasone furoate-vilante roL (BREO ELLIPTA) 100-25 mcg/dose Disk with Device Take 1 Puff by inhalation daily. 1 Each 2 Active insulin lispro (HumaLOG) 100 unit/mL vial Inject 10 Units by subcutaneous injection 3 times daily with meals. 10 mL 2 Active Active Problems Problem Noted Date Diagnosed Date Moderate persistent asthma with acute exacerbati on 01/05/2022 Benign hypertension 01/05/2022 History of COVID-19 01/05/2022 Fatty liver 11/05/2018 Type 2 diabetes mellitus wit h hyperglycemia, with long-term current use of insulin 07/19/2018 Chronic abdominal pain 07/19/2018 Family History Medical History Relation Name Comments Diabetes Mother Hypertension Mother Relation Name Status Comments Father Mother Alive Social History Tobacco Use Types Packs/Day Years Used Date Smoking Tobacco: Never Smokeless Tobacco: Never Alcohol Use Standard Drinks/Week Comments Yes 0 (1 standard drink = 0.6 oz pur e alcohol) Comments No Sex and Gender Information Value Date Recorded Sex Assigned at Not on file Legal Sex Female 12:46 PM [employer]LEBOT[employer]IST[employer] Gender Identity Not on file Sexual Orientation Not on file Last Filed Vital Signs Vital Sign Reading Time Taken Comments Blood Pressure 111/77 01/07/2022 4:36 PM CDT Pulse 85 01/07/2022 4:36 PM CDT Temperature 37.1 C (98.7 F) 01/07/2022 4:36 PM CDT Respiratory Rate 14 01/07/2022 4:36 PM CDT Oxygen Saturation 97% 01/07/2022 4:36 PM CDT Inhaled Oxygen Concentration - - Weight 77.1 kg (170 lb) 01/04/2022 5:58 PM CDT Height 154.9 cm (5' 1 ) 01/04/2022 5:58 PM CDT Body Mass Index 32.12 01/04/2022 5:58 PM CDT Plan of Treatment Health Maintenance Due Date Last Done Comments DIABETES ANNUAL FOOT EXAM 1979 DIABETES MICROALBUMIN ANNUAL SCREEN 1979 LDL CHOLESTEROL ANNUAL 1979 DTAP/TDAP/TD VACCINES (1 - Tdap) 1980 HPV/Cotest (21-29) 1982 CERVICAL CANCER SCREENING 1991 HPV/Cotest (30-65) 1991 PAP SMEAR 1991 BREAST CANCER SCREENING 2001 COLORECTAL SCREENING 2006 Colorectal Cancer Screening 2006 FIT-DNA Q 3 years 2006 FIT/FOBT Q 1 year 2006 Flex Sig/CT Colonography Q 5 years 2006 ZOSTER VACCINE (1 of 2) 2011 DIABETES ANNUAL RETINAL EXAM 05/06/2021 05/06/2020 RSV VACCINE (60+ or ) (1 - Risk 60-74 years 1-dose series) 2021 DIABETES HBA1C Q 6 MONTHS 07/07/2022 01/04/2022 INFLUENZA VACCINE (#1) 2024 Procedures Procedure Name Priority Date/Time Associated Diagnosis Comments HEMOGLOBIN A1C Stat 01/04/2022 6:54 PM CDT from Last 3 Months or Most Recently Relevant to Health Maintenance Results * (ABNORMAL) HEMOGLOBIN A1C (01/04/2022 6:54 PM CDT) HEMOGLOBIN A1C 10.3(H) <5.7 % 01/05/2022 3:[address] [facility] EST. AVG GLUCOSE, A1C 249 mg/dL 01/05/2022 3:[address] [facility] Blood Venipuncture / Unknown 01/04/2022 6:54 PM CDT 01/04/2022 6:57 PM CDT Narrative [facility] - 01/05/2022 3:39 AM CDT HGB A1C INTERPRETATION NORMAL: <5.7% PRE-DIABETES: 5.7 - 6.4% DIABETES: 6.5% OR GREATER Freddie Hwang MD CHEMISTRY ORDERABLES Final Resul t [facility] CLIA# [id number] [address] [place] [address] from Last 3 Months or Most Recently Relevant to Health Maintenance Insurance [employer] [place] Advance Directives For more information, please contact: [phone] * Full Code (Latest Code Status on File) Date Activated Date Inactivated Comments 01/05/2022 7:12 AM 01/07/2022 7:49 PM Care Teams Video Recorder Mechanic Relationship Specialty Start [place] [address] [place] [id number] PCP - General Internal Medicine 07/19/18
--- NOTE | 2024-10-01 14:58 | ED_ITS ---
HPI - Chest Pain General Chief Complaint: Chest Pain Stated Complaint: chest pain Time Seen by Provider: 10/01/24 13:42 History of Present Illness HPI narrative: Patient is a 64-year-old female who presents ER with chest pain. She had crushing chest pain like bricks for on her chest just prior to arrival. She took 2 nitroglycerins which improved her pain is 6/10. Currently pain-free. No fevers or chills or sweats. No nausea. Denies history of coronary artery disease or cardiac catheterization. She does have a admin prog coord whom she reports prescribes her blood pressure medicine. She is unsure why she takes nitroglycerin has it. Related Data Allergies Allergy/AdvReac Type Severity Reaction Status Date / Time tetanus and diphtheria Allergy Mild Rash Verified 10/01/24 15:05 toxoids Penicillins Allergy Unknown Rash Verified 10/01/24 15:05 Contrast Media Allergy Mild Rash Uncoded 10/01/24 15:05 Review of Systems 2 Review of Systems: All systems reviewed & are unremarkable except as noted in HPI and below Constitutional: Constitutional: Reports no additional constitutional complaints ENT: Reports system reviewed and no additional complaints, except as documented Cardiovascular: Cardiovascular: Reports no additional cardiovascular complaints Respiratory: Respiratory: Reports no additional respiratory complaints Gastrointestinal: Gastrointestinal: Reports no additional gastrointestinal complaints Genitourinary: Genitourinary: Reports no additional female genitourinary complaints [facility] Past Medical History Medical History (Updated 10/01/24 @ 17:23 by Jose Snyder MD) Diabetes Hypertension Pneumonia COVID Social History Social History Smoking status: Never smoker Exam 2 Narrative: GENERAL: Well-appearing, well-nourished, and in no acute distress. HEAD: Normocephalic, atraumatic. ENT: Mucous membranes moist. CHEST: Clear to auscultation. No respiratory distress. HEART: Regular rate and rhythm. Normal peripheral pulses. ABDOMEN: Soft, nontender, nondistended. EXTREMITIES: Normal range of motion. No edema. SKIN: Warm, dry, no rash. NEURO: Alert and oriented x3. PSYCH: Normal mood and affect. Course Course Emergency Course: Chest pain-free. Troponin negative x2. Spoke with Dr. Tapia patient's admin prog coord. He is happy to have her follow-up in 2-3 days in his office. She can just show up in [facility] and he will see her. EKG reassuring. Vital Signs Vital signs: Vital Signs Pulse Rate 67 10/01/24 15:05 Respiratory Rate 12 10/01/24 15:05 Blood Pressure 125/68 10/01/24 15:05 Pulse Oximetry 100 10/01/24 15:05 Pulse Rate 70 10/01/24 16:41 Respiratory Rate 14 10/01/24 16:41 Blood Pressure 117/79 10/01/24 16:41 Pulse Oximetry 100 10/01/24 16:41 Oxygen Delivery Room Air 10/01/24 15:08 MDM - Chest Pain Lab Data 10/01/24 12:15 10/01/24 12:15 Labs: Lab Results 10/01/24 10/01/24 Range/Units 12:15 15:12 WBC 6.2 (4.5-10.0) K/mm3 RBC 4.67 (4.2-5.4) M/mm3 Hgb 12.5 (12.0-15.0) g/dL Hct 40.2 (37.0-47.0) % MCV 86.1 (80-100) fl MCH 26.8 (26-34) pg MCHC 31.1 L (32-36) g/dl RDW 13.4 (11.5-14.5) % Plt Count 303 (150-375) k/mm3 MPV 10.8 H (7.4-10.4) fl Immature Gran % (Auto) 0.3 (0-0.5) % Neut % (Auto) 63.4 (45.5-73.1) % Lymph % (Auto) 30.8 (18.3-44.2) % Dubois % (Auto) 3.9 (2.6-8.5) % Eos % (Auto) 1.3 (0-4.4) % Baso % (Auto) 0.3 (0.2-1.2) % Lymph # (Auto) 1.90 (0.9-3.2) K/mm3 Dubois # (Auto) 0.2 (0.1-0.6) K/mm3 Eos # (Auto) 0.1 (0-0.3) K/mm3 Baso # (Auto) 0.0 (0.0-0.1) K/mm3 Abs Immat Gran (auto) 0.02 (0.00-0.031) K/mm3 Absolute Neuts (auto) 3.9 (1.3-6.7) K/mm3 Absolute Nucleated RBC 0.000 (0.0-0.012) K/mm3 Nucleated RBC % 0.0 (0.0-0.2) % PT 13.4 (11.1-14.7) Seconds INR 1.0 APTT 23.7 (22.3-36.8) Seconds Sodium 138 (137-145) mmol/L Potassium 4.4 (3.4-5.0) mmol/L Chloride 105 (98-107) mmol/L Carbon Dioxide 24 (22-30) mmol/L Anion Gap 9 (4-12) mmol/L BUN 15 (7-17) mg/dL Creatinine 0.89 (0.7-1.0) mg/dL Estim Creat Clear Calc 52 ml/min Estimated GFR > 60 (59 - ) Glucose 130 H (65-110) mg/dL Calcium 9.2 (8.4-10.2) mg/dL Total Bilirubin 0.7 (0.2-1.3) mg/dL AST 23 (14-36) U/L ALT 15 (6-35) U/L Alkaline Phosphatase 113 (38-126) U/L Troponin I < 0.012 < 0.012 (0.000-0.034) ng/mL Total Protein 8.0 (6.3-8.2) g/dL Albumin 4.4 (3.5-5.1) g/dL Lipase 85 (23-300) U/L Imaging Data Radiologist's impression: ITS Impressions Chest X-Ray 10/01/24 12:40 IMPRESSION: 1. No acute cardiopulmonary disease. ECG Data EKG #1: ECG completion date: 10/01/24 ECG completion time: 15:20 EKG Interpretation: normal rate (65), sinus rhythm, no ectopy, no ST changes, normal QT and NL axis Discharge Plan Discharge Clinical Impression: Chest pain Patient Disposition: Home Condition: Stable Instructions: Chest Pain (ED) Additional Instructions: Please return to the emergency department if you develop severe and persistent chest pain, difficulty breathing, dizziness, leg swelling or if you are coughing up blood as these can be signs of a medical emergency. Please call your doctor for a follow up appointment to determine the need for further testing. Follow-up with your admin prog coord in 2-3 days. Patient Language: Burmese Prescriptions: No Action azithromycin [Zithromax Z-Ap] 250 mg tablet See Rx Instructions .ROUTE .COMPLEX Qty: 6 0RF Rx Instructions: For 250 mg dose pack: take 500 mg today (day 1), then 250 mg for 4 days (days 2-5) albuterol sulfate 90 mcg/actuation aerosol powdr breath activated 2 inh inhalation Q6H PRN (Reason: shortness of breath or wheezing) Qty: 1 0RF prednisone 20 mg tablet 60 mg PO DAILY Qty: 15 0RF fluticasone propion-salmeterol [Advair Diskus] 100-50 mcg/dose blister with device 1 inh inhalation Q12H Qty: 60 0RF Follow-up/Referrals: Mia,Macho Mariano [Primary Care Provider] - Dennys Tapia MD [Physician] - 2 Days Quality HEART score for chest pain patients History: moderately suspicious ECG: normal Age: > 45 and < 65 years Risk factors: 1 or 2 risk factors Troponin: < or = to 1x normal limit Heart score: 3
--- NOTE | 2024-10-01 14:58 | ECG_ITS ---
Test Date: 2024-10-01 15:20:04 Measurements Intervals [place] Rate: 65 P: 43 ND: 141 QRS: 18 QRSD: 89 T: 36 QT: 415 QTc: 434 Interpretive Statements SINUS RHYTHM BASELINE ARTIFACT- I, II, III, AVR, AVL, AVF, V1 NORMAL ECG Compared to ECG 10/01/2024 12:23:08 No significant changes Electronically Signed On 10-01-2024 17:49:32 CDT by Parminder Wylie D.O.
[2024-10-01 15:05] VITALS: BP 125/68; PULSE 67; RESP 12; O2SAT 100
[2024-10-01 15:08] VITALS: O2SAT 100
--- OUTSIDE RECORDS SUMMARY | 2024-10-01 15:13 | XMS_ITS | Referral Summary ---
Author Organization [facility] Physician Office Building 1 Address [address] [place] [address] Care Team Providers Care Facility Planner Name Role Phone Montserrat Bellamy MD Primary Care Provider Ailyn Milton ANIMAL BREEDER Unavailable Encounters Date Type Department Care Team Description 09/20/[address] [facility] Medical Group Diabetes and Endocrinology [address] [place] [phone] ProviderCaterina MD 09/17/2024 Results Follow-Up [facility] Diabetes and Endocrinology [address] [place] [phone] Ailyn Milton NP 09/16/2024 11:45 AM CDT - 09/16/2024 11:59 PM CDT Hospital Encounter [facility] [id number] [place] [id number] Type 2 diabetes mellitus with hyperglycemia, with long-term current use of insulin (HCC); Hypertension associated with type 2 diabetes mellitus (HCC) Discharge Disposition: Discharge to home or self care 09/16/2024 11:[address] [facility] Medical Group Outpatient Lab at [address] [phone] Essential hypertension (Primary Dx); Hypertension associated with type 2 diabetes mellitus (HCC) 09/16/2024 11:00 AM CDT Office Visit [facility] Diabetes and Endocrinology [address] [place] [phone] Ailyn Milton, ISSA Type 2 diabetes mellitus with hyperglycemia, with long-term current use of insulin (HCC) (Primary Dx); Hypertension associated with type 2 diabetes mellitus (HCC) 07/29/[address] [facility] Medical [facility] Diabetes and Endocrinology [address] [place] [phone] ProviderCaterina MD 07/22/2024 Orders Only [facility] Diabetes and Endocrinology [address] [place] [phone] Provider, MD Caterina from Last 3 Months Allergies Active Allergy Reactions Criticality Noted Date Comments Diphtheria, Pertussis, Tetanus Vaccine Unknown 01/21/2021 Iodinated Contrast Media Rash,Unknown Medium 04/17/2017 Penicillins Rash,Hives,Itching,U nknown High 04/17/2017 Pt reports yeast infections with use Bacterial infection Tetanus And Diphther. Tox (Pf) Rash Medium 07/19/2018 Tetanus And Diphtheria Toxoids Unknown 12/07/2023 Tetanus Antitoxin Urticaria Medium 09/16/2023 Tetanus Toxoid Rash Medium 04/17/2017 Tetanus Vaccines And Toxoid Rash Medium 04/17/2017 Medications losartan (COZAAR) 100 mg tabletIndicatio ns:Essential hypertension Take 1 tablet (100 mg total) by mouth daily 017 Active acetaminophen ER (TYLENOL) 650 mg 8 hr tablet TAKE 2 TABLETS BY MOUTH EVERY 8 HOURS NEEDED FOR 10 DAYS Active albuterol 2.5 mg /3 mL (0.083 %) nebulizer solution USE 1 VIAL IN NEBULIZER THREE TIMES DAILY NEEDED Active alendronate (FOSAMAX) 70 mg tablet TAKE 1 TABLET BY MOUTH ONCE A WEEK DIRECTED FOR 28 DAYS Active aspirin 81 mg enteric coated tablet Take by mouth 023 Active OneTouch Verio test strips strip 024 Active cromolyn (OPTICROM) 4 % ophthalmic solution 1 drop by ophthalmic route. 021 Active ergocalciferol (VITAMIN D) 50,000 unit capsule Take 1 capsule (50,000 Units total) by mouth once a week Active ezetimibe (ZETIA) 10 mg tablet Take 1 tablet (10 mg total) by mouth daily Active fluticasone propionate (FLONASE) 50 mcg/actuation nasal spray Active metoprolol tartrate (LOPRESSOR) 25 mg immediate release tablet Take 1 tablet (25 mg total) by mouth 2 (two) times a day Active isosorbide mononitrate ER (IMDUR) 30 mg 24 hr tablet Take 1 tablet (30 mg total) by mouth daily Active ipratropium (ATROVENT) 21 mcg (0.03 %) nasal spray USE 2 SPRAY(S) IN EACH NOSTRIL TWICE DAILY DIRECTED FOR 10 DAYS Active montelukast (SINGULAIR) 10 mg tablet Active nitroglycerin (NITROSTAT) 0.4 mg SL tablet DISSOLVE ONE TABLET UNDER THE TONGUE EVERY 5 MINUTES NEEDED FOR CHEST PAIN. DO NOT EXCEED A TOTAL OF 3 DOSES IN 15 MINUTES 970 Active TRUEplus Pen Needle 32 gauge x 5/32 needle USE 1 ONCE DAILY Active insulin degludec (TRESIBA) 100 unit/mL (3 mL) pen for injection Inject 0.25 mL (25 Units total) under the skin nightly 15 mL 6 Active Additional Information Patient not taking.Reported on 09/16/2024 metFORMIN (GLUCOPHAGE) 1,000 mg tabletIndicatio ns:Type 2 diabetes mellitus with hyperglycemia, with long-term current use of insulin (HCC) Take 1 tablet (1,000 mg total) by mouth 2 (two) times a day after breakfast and dinner 180 tablet 2 Active insulin lispro (HumaLOG, ADMELOG) 100 unit/mL vial for injection Inject 6-10 Units under the skin 2 (two) times a day before breakfast and dinner 15 mL 6 Active albuterol HFA (PROVENTIL HFA,VENTOLIN HFA,PROAIR HFA) 90 mcg/actuation inhaler INHALE 2 PUFFS BY MOUTH EVERY 6 HOURS NEEDED FOR SHORTNESS OF BREATH Active insulin lispro (HumaLOG, ADMELOG) 100 unit/mL pen for injection INJECT 6 TO 10 UNITS SUBCUTANEOUSLY TWICE DAILY BEFORE BREAKFAST AND BEFORE SUPPER Active Farxiga 10 mg tablet Take 1 tablet by mouth once daily 90 tablet 1 025 Active LANTUS 100 unit/mL (3 mL) pen for injectionIndica tions:Type 2 diabetes mellitus with hyperglycemia, with long-term current use of insulin (HCC) INJECT 26 UNITS SUBCUTANEOUSLY NIGHTLY 30 mL 025 Active liraglutide (Victoza 3-Ap) 0.6 mg/0.1 mL (18 mg/3 mL) injectionIndica tions:type 2 diabetes mellitus Inject 1.8 mg under the skin daily Indications: type 2 diabetes mellitus 27 mL 3 025 2025 Active liraglutide (Victoza 3-Ap) 0.6 mg/0.1 mL (18 mg/3 mL) injectionIndica tions:type 2 diabetes mellitus Inject 0.6 mg under the skin daily for 7 days, THEN 1.2 mg daily. Indications: type 2 diabetes mellitus. 9 mL 3 024 2024 Discontinued dulaglutide (Trulicity) 0.75 mg/0.5 mL pen injector Trulicity 0.75 mg/0.5 mL pen injector 2024 Discontinued(A lternate therapy) Active Problems Problem Noted Date Diagnosed Date Hypertension associated with type 2 diabetes katie litus 12/07/2023 Assessment & Plan (09/16/2024 11:16 AM CDT): Chronic problem. Controlled on current losartan 100mg daily, metoprolol tartrate 25mg bid Assessment & Plan (12/07/2023 3:59 PM CDT): Chronic problem. Controlled on current losartan 100mg daily, metoprolol tartrate 25mg bid Pelvic and perineal pain 03/20/2023 Overview (03/20/2023): - Patient with long-standing history of pain starting in rectum and radiating to vagina, described as a tightness - Exam today benign other than vaginal atrophy, no pelvic floor muscle tenderness - Discussed that while her exam was not necessarily consistent with pelvic floor muscle dysfunction, her symptoms do sound most consistent with a potential pelvic floor muscle spasm - Discussed trialing a muscle relaxer when she is having symptoms and if this works well then taking nightly, patient amenable - Rx sent for methocarbamol Type 2 diabetes mellitus wit h hyperglycemia, with long-term current use of insulin 04/18/2017 Assessment & Plan (09/16/2024 11:31 AM CDT): Chronic problem. A1c uncontrolled at 9.8%; down minimally from 9.9% 07/17/24. -Will increase Victoza from 1.2 to 1.8mg daily to help lower your blood sugar/A1c. -increase Humalog from 6 to 8 units with meals (only if eating). -increaseTresiba from 26 to 30 units at bedtime. Current medications: Metformin 1000mg twice daily with meals Farxiga 10mg daily Victoza 1.8mg daily Tresiba 30 units at bedtime Humalog 8 units at breakfast & dinner (if eating) If blood sugars are over 200: take 12 units DM eye exam Will update CMP. Verified that she uses [employer]. Aware to check results/results letter in [employer]. Will contact by phone if needed. Discussed with Steffanie Dennis: Strive for regular exercise (30min most days) and diet (get at least 4-5 servings of fruit and veggies daily, avoid processed foods, increase lean protein intake and decrease carb portions as well as fruit juices, regular soda & desserts). Watch carbs and simple sugars. Check the blood sugar: 1-2x/day. Check the feet daily for skin breakdown and infection. Assessment & Plan (12/07/2023 3:44 PM CDT): Chronic problem. A1c uncontrolled at 9.8%; increased from 9.4% 10/10/23. Mounjaro 2.5mg weekly x 1 month then increase to 5mg weekly Current medications: Metformin 1000mg twice daily with meals Farxiga 10mg daily Mounjaro 2.5mg weekly x 1 month then increase to 5mg weekly Tresiba 26 units at bedtime Humalog 6 units at breakfast & dinner If blood sugars are over 200: take 10 units Assessment & Plan (10/10/2023 12:40 PM CDT): Hba1c was Lab Results Component Value Date HGBA1C 9.4 10/10/2023 today, indicating poor DM control Goal Hba1c under 7 and blood glucose level in the 120-160 range was explained Low carb diet and daily aerobic and /or resistant exercise were advised Prevention and treatment of hyypoglcyemia were discussed with the patient Blood glucose monitoring : not interested in CGM; fingersticks 2 x day Adjustment to medications: Check your sugars at least twice a day, morning before breakfast and dinner. Start Tresiba insulin, 25 units at bedtime Take Humalog, 6 units before breakfast and dinner If your sugars are over 200, take 10 units Stay on Metformin and Farxiga Stop Glimepiride Restart Trulicity 1.5 mg weekly Assessment & Plan (05/01/2017 7:40 PM TOOL MAKER BENCH): - fasting BS low - advised to decrease Basaglar insulin to 25 units SQ daily at bedtime - advise to continue Victoza 1.2 mg SQ daily , Metformin 1000 mg oral BID, Glipizide XL 10 mg BID - Advise pt. To send BS log in 2-3 weeks - advise to make eye doctor appt. Soon - Victoza is not covered by insurance , in future if samples ran out off, plan to switch to SGLT -2 inhibitors ( Jardiance ) - follow up in 2 months Diabetes is improving with treatment. Reminded to bring in blood sugar diary at next visit. Dietary recommendations for ADA diet. Regular aerobic exercise. Discussed ways to avoid symptomatic hypoglycemia. Discussed sick day management. Discussed foot care. Reminded to get yearly retinal exam. Medication changes per orders. Diabetes will be reassessed in 2 months. Assessment & Plan (04/18/2017 9:00 AM CDT): - STOP NPH insulin - increase Basaglar to 30 units SQ daily at bedtime - continue Metformin and Glipizide same - start Victoza SQ injection daily - 30 min before breakfast - start taking 0.6 mg daily for one week, increase up to 1.2 mg SQ daily - start checking blood sugars at 2 x daily - before breakfast and before dinner - daily foot care - increase physical activity - advise to do blood work - fasting - follow up in 2 weeks Diabetes is improving with treatment. Reminded to bring in blood sugar diary at next visit. Dietary recommendations for ADA diet. Regular aerobic exercise. Discussed ways to avoid symptomatic hypoglycemia. Discussed sick day management. Discussed foot care. Reminded to get yearly retinal exam. Medication changes per orders. Diabetes will be reassessed in 2 weeks. Essential hypertension 04/18/2017 Assessment & Plan (05/01/2017 7:47 PM TOOL MAKER BENCH): Hypertension is improving with treatment. Continue current treatment regimen. Dietary sodium restriction. Weight loss. Regular aerobic exercise. Continue current medications. Blood pressure will be reassessed at the next regular appointment. Assessment & Plan (04/18/2017 9:00 AM CDT): Hypertension is improving with treatment. Continue current treatment regimen. Dietary sodium restriction. Weight loss. Regular aerobic exercise. Continue current medications. Blood pressure will be reassessed at the next regular appointment. Obesity (BMI 30.0-34.9) 04/18/2017 Assessment & Plan (05/01/2017 7:47 PM TOOL MAKER BENCH): Obesity is unchanged. Discussed the patient's BMI. The BMI is above average; BMI management plan is completed. General weight loss/lifestyle modification strategies discussed (elicit support from others; identify saboteurs; non-food rewards, etc). Behavioral treatment: stress management. Diet interventions: moderate (500 kCal/d) deficit diet. Informal exercise measures discussed, e.g. taking stairs instead of elevator. Regular aerobic exercise program discussed. Assessment & Plan (04/18/2017 9:00 AM CDT): Obesity is newly identified. Discussed the patient's BMI. The BMI is above average; BMI management plan is completed. General weight loss/lifestyle modification strategies discussed (elicit support from others; identify saboteurs; non-food rewards, etc). Behavioral treatment: stress management. Diet interventions: moderate (500 kCal/d) deficit diet. Informal exercise measures discussed, e.g. taking stairs instead of elevator. Regular aerobic exercise program discussed. Social History Tobacco Use Types Packs/Day Years Used Date Smoking Tobacco: Never Smokeless Tobacco: Never Alcohol Use Standard Drinks/Week Comments No 0 (1 standard drink = 0.6 oz pur e alcohol) Comments No Sex and Gender Information Value Date Recorded Sex Assigned at Not on file Legal Sex Female 3:19 PM CDT Gender Identity Not on file Sexual Orientation Not on file Last Filed Vital Signs Vital Sign Reading Time Taken Comments Blood Pressure 126/76 09/16/2024 11:01 AM CDT Pulse 67 09/16/2024 11:01 AM CDT Temperature - - Respiratory Rate 18 09/16/2024 11:01 AM CDT Oxygen Saturation 100% 03/20/2023 2:32 PM CDT Inhaled Oxygen Concentration - - Weight 73.9 kg (163 lb) 09/16/2024 11:01 AM CDT Height 154.9 cm (5' 0.98 ) 09/16/2024 11:01 AM C DT Body Mass Index 30.81 09/16/2024 11:01 AM CDT Plan of Treatment Not on file Procedures Procedure Name Priority Date/Time Associated Diagnosis Comments EGFR Routine 09/16/2024 11:45 AM CDT Type 2 diabetes mellitus with hyperglycemia, with long-term current use of insulin (HCC) Hypertension associated with type 2 diabetes mellitus (HCC) COMPREHENSIVE METABOLIC PANEL Routine 09/16/2024 11:45 AM CDT Type 2 diabetes mellitus with hyperglycemia, with long-term current use of insulin (HCC) Hypertension associated with type 2 diabetes mellitus (HCC) POCT HEMOGLOBIN A1C Routine 09/16/2024 1 1:07 AM CDT Type 2 diabetes mellitus with hyperglycemia, with long-term current use of insulin (HCC) POCT GLUCOSE Routine 09/16/2024 11:04 AM CDT Type 2 diabetes mellitus with hyperglycemia, with long-term current use of insulin (HCC) HEMOGLOBIN A1C Routine 07/17/2024 8:34 AM TOOL MAKER BENCH LIPID PANEL Routine 07/17/2024 8:34 AM TOOL MAKER BENCH ALBUMIN CREATININE RATIO, URINE Routine 12/27/2023 8:43 AM CDT Type 2 diabetes mellitus with hyperglycemia, with long-term current use of insulin (HCC) HM DIABETES EYE EXAM Routine 01/25/2023 10:30 AM CDT from Last 3 Months or Most Recently Relevant to Health Maintenance Results * eGFR (09/16/2024 11:45 AM CDT) eGFR 76 >=60 mL/min/1. 73 m2 Comment: Interpretive Data Reference Interval Normal >/= 90 mL/min/1.73m2 Mildly decreased* 60 - 89 mL/min/1.73m2 Mildly to moderately decreased 45 - 59 mL/min/1.73m2 Moderately to severely decreased 30 - 44 mL/min/1.73m2 Severely decreased 15 - 29 mL/min/1.73m2 Kidney Failure < 15 mL/min/1.73m2 *Relative to young adult level Estimated glomerular filtration rate is determined by the 2020 CKD-EPI equation recommended by the National Kidney Foundation (A Unifying Approach to GFR Estimation: Recommendations of the NKF-ASK Task Force on Reassessing the Inclusion of Race in Diagnosing Kidney Disease, JASN 2020). The CKD-EPI equation should not be used for patients with unstable renal function and has not been validated in children and those over 70. Current interpretive data was last reviewed 2021. Blood 09/16/2024 11:4 5 AM CDT 09/16/2024 4:31 PM CDT us Ailyn Milton NP LAB BLOOD ORDERABLES Melissa ambrosio Result [facility] [address] [address] Department [place] [address] * Comprehensive metabolic panel (09/16/2024 11:45 AM CDT) Sodium 137 135 - 145 mmol/L Potassium, pl 4.8 3.3 - 4.9 mmol/L [facility] Chloride 100 97 - 110 mmol/L [facility] CH CO2 22 22 - 32 mmol/L [facility] Anion gap 15 2 - 15 mmol/L [facility] BUN 13 6 - 25 mg/dL [facility] Creatinine 0.86 0.60 - 1.10 mg/dL [facility] Glucose 114 70 - 199 mg/dL [facility] Comment: Interpretive Data Fasting glucose >/= 126 mg/dl is diagnostic for diabetes. Fasting is defined as no caloric intake for at least 8 hours. Fasting glucose between 100 mg/dl to 125 mg/dl is diagnostic of prediabetes. In a patient with classic symptoms of hyperglycemia or hyperglycemic crisis, a random glucose >/= 200 mg/dl is diagnostic for diabetes. In the absence of unequivocal hyperglycemia, results should be confirmed by repeat testing. The classification and Diagnosis of Diabetes Diabetes Care 2021; 46: S19-S40. Current interpretive data was last revised 2022. Calcium 10.1 8.5 - 10.3 mg/dL [facility] Bilirubin, total 0.3 0.1 - 1.2 mg/dL [facility] CH Protein, pl 7.9 6.5 - 8.5 g/dL [facility] Albumin 4.1 3.5 - 5.0 g/dL [facility] Alk phos 109 40 - 130 Units/L [facility] ALT 13 7 - 45 Units/L [facility] AST 29 10 - 45 Units/L [facility] Blood 09/16/2024 11:4 5 AM CDT 09/16/2024 4:18 PM CDT us Ailyn Milton NP LAB BLOOD ORDERABLES Melissa l Result [facility] [address] Department [place] [address] * (ABNORMAL) POCT hemoglobin A1c (09/16/2024 11:07 AM CDT) Hemoglobin A1C, POC 9.8 4.0 - 5.6 % Blood 09/16/2024 11:0 7 AM CDT us Ailyn Milton NP POINT OF CARE TEST ORDERA BLES Final Result * (ABNORMAL) POCT glucose (09/16/2024 11:04 AM CDT) Glucose Blood, POC 155 mg/dL Blood 09/16/2024 11:0 4 AM CDT Ailyn Milton NP POINT OF CARE TEST ORDERA BLES Final Result * (ABNORMAL) Hemoglobin A1c (07/17/2024 8:34 AM TOOL MAKER BENCH) SCRIBED Hemoglobin A1c 9.9(A) 4.0 - 6.0 % [facility] Blood 07/17/2024 8:34 AM TOOL MAKER BENCH Historical Provider MD LAB BLOOD ORDERABLES Edit ed Result - Final [facility] [address] [phone] * Lipid panel (07/17/2024 8:34 AM TOOL MAKER BENCH) SCRIBED Cholesterol, Total 180 140 - 199 [facility] SCRIBED HDL 76 40 - NA [facility] SCRIBED LDL 87 0 - 130 [facility] SCRIBED Triglycerides 86 0 - 150 [facility] Blood 07/17/2024 8:34 AM TOOL MAKER BENCH Historical Provider LAB BLOOD ORDERABLES Edit ed Result - Final Performing Organization Address City/[facility]/ZIP Co de Phone Number [facility] [address] [place] [address], [facility] [phone] * (ABNORMAL) Albumin Creatinine Ratio, Urine (12/27/2023 8:43 AM CDT) SCRIBED Creatinine, Urine 90.70 NA - NA [facility] SCRIBED Microalbumin 22.0(A) 0.0 - 16.6 [facility] SCRIBED Microalb/Creat Ratio 24 0 - 29 [facility] Urine 12/27/2023 8:43 AM CDT Ailyn R. Schleeper ANIMAL BREEDER LAB URINE ORDERABLES Melissa l Result [facility] [address] [phone] * DIABETES EYE EXAM (01/25/2023 10:30 AM CDT) Historical Provider MD HEALTH MAINTENANCE Final Result from Last 3 Months or Most Recently Relevant to Health Maintenance Insurance Care Teams Facility Planner Relationship Specialty Start Date End Date Montserrat Bellamy MD [address] [address] PCP - General Internal Medicine 03/20/17 [place] [address] [address] Nurse Practitioner Endocrinology Diabetes & Metabolism 01/29/24
--- OUTSIDE RECORDS SUMMARY | 2024-10-01 15:13 | XMS_ITS | CONTINUITY OF CARE DOCUMENT ---
Author Name leydisurjit leydisurjit Address Unknown Organization [facility] Address [address] [place] [address] Phone [phone] Care Team Providers Care White Spooler Name Role Phone Dennys Tapia MD Unavailable MARIA D MURPHY MD Unavailable MARIA D [...] In-person encounter Office Visit Dennys Tapia MD [facility] - In-person encounter Office Visit Dennys Tapia MD [facility] - In-person encounter Office Visit Dennys Tapia MD [facility] Chest pain-type to be determinedShortness of [...] /min Ravindra oxygen saturation, oximetry 98 % Raivndra weight E&M 160 [lb_av] Ravindra y height [...] Policy type / Coverage type Rena red alliance party ID [employer] MEDICAID Medicaid [id number] ADVANCE DIRECTIVES Name Date DISCUSSED - NO DECISION MADE TREATMENT PLAN Date Name Performer [id number],C,p t states that she had an episode [...] 0.4 Mg Tablet, Sublingual (Nitroglycerin) Adela Wright CATALYST MANUFACTURING OPERATOR [id number],C, B P today: 141/90 P rior BP: 135/89 (01/05/2023) Her updated medication list for this problem includes: Losartan 100 Mg Tablet (Losartan) ..... Daily Aspirin 81 Mg Tablet,delayed Release (dr/ec) (Aspirin) ..... Take 1 tablet by mouth once a day Metoprolol Tartrate 25 Mg Tablet (Metoprolol tartrate) ..... Take 1 tablet by mouth twice a day Adela Wright NP [id number],C,follows Dr. Neal Wright NP [id number],Yudy Bailey per PCP. H er updated medication list for this problem includes: Aspirin 81 Mg Tablet,delayed Release (dr/ec) (Aspirin) ..... Take 1 tablet by mouth once a day Trulicity 0.75 Mg/0.5 Ml Pen Injector (Dulaglutide) Levemir Flextouch U-100 Insuln 100 Unit/ml (3 Ml) Insulin Pen (Insulin detemir u-100) Losartan 100 Mg Tablet (Losartan) Metformin 1,000 Mg Tablet (Metformin) Yarahenrry Angelito PARSONS [id number],C, B P today: 135/89 P rior BP: 139/90 (10/21/2022) Her updated medication list for this problem includes: Aspirin 81 Mg Tablet,delayed Release (dr/ec) (Aspirin) ..... Take 1 tablet by mouth once a day Metoprolol Tartrate 25 Mg Tablet (Metoprolol tartrate) ..... Take 1 tablet by mouth twice a day Losartan 100 Mg Tablet (Losartan) Cash Eaton NP [id number],C, S he had a positive stress test. She continues to have chestt pain described as pressure like with heaviness. She as some associtaed shortness of breath as noted above. W ill schedule for LT/RT cardiac cath Cash Eaton NP [id number],C, P atient reports shortness of breath with exertion and with activity of daily living as well as prolonged conversations. W ill schedule for cardiac cath as noted below. Cash Eaton NP [id number],S, Dennys Tapia MD [id number],C,T his is concerning for angina. However, she [...]
--- OUTSIDE RECORDS SUMMARY | 2024-10-01 15:13 | XMS_ITS | Clinical Summary ---
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 AVG GLUCOSE, A1C 249 mg/dL 01/05/2022 3:39 AM CDT [facility] Blood Venipuncture / Unknown 01/04/2022 6:54 PM CDT 01/04/2022 6:57 PM CDT Narrative [facility] - 01/05/2022 3:39 AM CDT HGB A1C INTERPRETATION NORMAL: <5.7% PRE-DIABETES: 5.7 - 6.4% DIABETES: 6.5% OR GREATER Frdedie Hwang MD CHEMISTRY ORDERABLES Final Resul t [facility] CLIA# [id number] [address] [place] [address] from Last 3 Months or Most Recently Relevant to Health Maintenance Insurance [place] Advance Directives For more information, please contact: [phone] * Full Code (Latest Code Status on File) Date Activated Date Inactivated Comments 01/05/2022 7:12 AM 01/07/2022 7:49 PM Care Teams Wool Fleece Sorter Relationship Specialty Start [place] [address] [place] [address] PCP - General Internal Medicine 07/19/18
--- OUTSIDE RECORDS SUMMARY | 2024-10-01 15:13 | XMS_ITS | Clinical Summary ---
Author Organization [facility] [id number] [place] [phone] Care Team Providers Care Aquatic Laborer Name Role Phone Montserrat Bellamy MD Primary Care Provider Ailyn Milton CATTYMAN Unavailable [phone] Allergies Active Allergy Reactions Criticality Noted Date [...] mg enteric coated tablet Take by mouth Active OneTouch Verio test strips strip Active cromolyn (OPTICROM) 4 % ophthalmic solution 1 drop by ophthalmic route. Active ergocalciferol (VITAMIN D) 50,000 unit capsule [...] Active TRUEplus Pen Needle 32 gauge x /32 needle USE 1 ONCE DAILY Active insulin degludec (TRESIBA) 100 unit/mL (3 mL) pen for injection Inject 0.25 mL (25 Units total) under the skin nightly 15 mL Active Additional Information Patient not taking.Reported on [...] day before breakfast and dinner 15 mL Active albuterol HFA (PROVENTIL HFA,VENTOLIN HFA,PROAIR HFA) 90 mcg/actuation inhaler INHALE 2 PUFFS BY MOUTH EVERY 6 HOURS NEEDED FOR SHORTNESS OF BREATH 024 Active insulin lispro (HumaLOG, ADMELOG) 100 unit/mL pen for injection INJECT 6 TO 10 UNITS SUBCUTANEOUSLY TWICE DAILY BEFORE BREAKFAST AND BEFORE SUPPER 024 Active Farxiga 10 mg tablet Take 1 [...] Will update CMP. Verified that she uses mychart. Aware to check results/results letter in [employer] Will contact by phone if needed. Discussed [...] weekly Assessment & Plan (05/01/2017 7:40 PM GLOBAL COMPENSATION MANAGER): - fasting BS low - advised to [...] 04/18/2017 Assessment & Plan (05/01/2017 7:47 PM GLOBAL COMPENSATION MANAGER): Hypertension is improving with treatment. Continue current [...] 04/18/2017 Assessment & Plan (05/01/2017 7:47 PM GLOBAL COMPENSATION MANAGER): Obesity is unchanged. Discussed the patient's BMI. [...] of elevator. Regular aerobic exercise program discussed. Encounters Date Type Department Care Team Description 09/20/2024 Orders Only [facility] Diabetes and Endocrinology [address] [place] [phone] Caterina Tovar MD 09/17/2024 Results Follow-Up [facility] Diabetes and Endocrinology [address] [place] [phone] Ailyn Milton NP 09/16/2024 11:45 AM CDT - 09/16/2024 11:59 PM CDT Hospital Encounter [address] [address] Type 2 diabetes mellitus with hyperglycemia, with long-term current use of insulin (HCC); Hypertension associated with type 2 diabetes mellitus (HCC) Discharge Disposition: Discharge to home or self care 09/16/2024 11:45 AM CDT Lab [facility] Outpatient Lab at [address] [phone] Essential hypertension (Primary Dx); Hypertension associated with type 2 diabetes mellitus (HCC) 09/16/2024 11:00 AM CDT Office Visit [facility] Diabetes and Endocrinology [address] [place] [phone] Ailyn Milton NP Type 2 diabetes mellitus with hyperglycemia, with long-term current use of insulin (HCC) (Primary Dx); Hypertension associated with type 2 diabetes mellitus (HCC) 07/29/2024 Orders Only [facility] Diabetes and Endocrinology [address] [place] [phone] Caterina Tovar MD 07/22/2024 Orders Only [facility] Diabetes and Endocrinology [address] [place] [phone] Caterina Tovar MD from Last 3 Months Surgical History Surgery Date Site/Laterality Comments GALLBLADDER SURGERY HYSTERECTOMY UTERINE FIBROID SURGERY HAND SURGERY ELBOW SURGERY FINGER SURGERY Medical History Medical History Date Comments Type 2 diabetes mellitus (HCC) Hypertension Anemia TIA (transient ischemic attack) Family History Medical History Relation Name Comments Diabetes Brother Hypertension Brother Diabetes Father Diabetes Mother Hypertension Mother Diabetes Sister Hypertension Sister Relation Name Status Comments Brother Father Mother Sister Social History Tobacco Use Types [...] on file Sexual Orientation Not on file Obstetrics History Para Term AB IAB SAB Ectopic Multiple Livin g Live Births 4 4 4 4 4 Date Outcome GA Total Labor Labor/2nd/3rd Weight Sex Type Anes PTL Kailey A1 A5 Name Clin Term Term Term Term Last Filed Vital Signs Vital Sign Reading [...] 09/16/2024 11:01 AM CDT Plan of Treatment Health Maintenance Due Date Last Done Comments Breast Cancer Screening-Mammogram 1961 Colon Cancer Screening-Colonoscopy 1961 Hepatitis C Screening 1961 DTaP/Tdap/Td Vaccine (1 - Tdap) 1972 Hepatitis B Screening 1979 Regular Well Visit/Exam 18-64 1979 Zoster Vaccine (1 of 2) 2011 Pneumococcal vaccine <65 (2 of 2 - PCV) 05/29/2015 05/29/2014 Depression Screening 05/01/2018 05/01/2017, 04/17/20 17 Dilated Eye Exam 01/26/2024 01/25/2023, 10/2017, 01/26/2016, Additional history exists Covid-19 Vaccine (2023-2 5 season) 2024 09/05/2022, 07/06/2021, 10/03/2020 Foot Exam 12/06/2024 12/07/2023, 11/0 11/2016, 04/17/2017 Albumin Creatinine Ratio, Urine 12/26/2024 Influenza Vaccine (Season Ended) 2025 05/02/2022, 06/28/2021, 04/16/2020, Additional history exists Hemoglobin A1C 03/19/2025 09/16/2024, 06/27, 12/07/2023, Additional history exists Lipid Panel 07/17/2025 07/17/2024, 07/0 08/2023, 07/17/2023, Additional history exists eGFR 09/16/2025 09/16/2024 Procedures Procedure Name Priority Date/Time Associated Diagnosis [...] (HCC) HEMOGLOBIN A1C Routine 07/17/2024 8:34 AM GLOBAL COMPENSATION MANAGER LIPID PANEL Routine 07/17/2024 8:34 AM GLOBAL COMPENSATION MANAGER ALBUMIN CREATININE RATIO, URINE Routine 12/27/2023 8:43 AM CDT Type 2 diabetes mellitus with hyperglycemia, with long-term current use of insulin (HCC) DIABETES EYE EXAM Routine 01/25/2023 10:30 AM [...] NP LAB BLOOD ORDERABLES Melissa ambrosio Result [facility] [address] [address] Department [place] [address] * Comprehensive metabolic panel (09/16/2024 11:45 AM CDT) Pathologist [facility] Sodium 137 135 - 145 mmol/L Potassium, pl 4.8 3.3 - 4.9 mmol/L [facility] Chloride 100 97 - 110 mmol/L [facility] CO2 22 22 - 32 mmol/L [facility] Anion gap 15 2 - 15 mmol/L [facility] BUN 13 6 - 25 mg/dL [facility] Creatinine 0.86 0.60 - 1.10 mg/dL [facility] Glucose 114 70 - 199 mg/dL [facility] Comment: Interpretive Data Fasting glucose >/= [...] LAB BLOOD ORDERABLES Melissa l Result [facility] [address] [address] Department [place] [address] * (ABNORMAL) POCT hemoglobin A1c (09/16/2024 11:07 AM CDT) Hemoglobin A1C, POC 9.8 4.0 - 5.6 % Blood 09/16/2024 11:0 7 AM CDT us Ailyn Milton NP POINT OF CARE TEST ORDERA BLES Final Result * (ABNORMAL) POCT glucose (09/16/2024 11:04 AM CDT) Glucose Blood, POC 155 mg/dL Blood 09/16/2024 11:0 4 AM CDT us Ailyn R. Schleeper CATTYMAN POINT OF CARE TEST ORDERA BLES Final Result * (ABNORMAL) Hemoglobin A1c (07/17/2024 8:34 AM GLOBAL COMPENSATION MANAGER) SCRIBED Hemoglobin A1c 9.9(A) 4.0 - 6.0 % [facility] Blood 07/17/2024 8:34 AM GLOBAL COMPENSATION MANAGER us Historical Provider MD LAB BLOOD ORDERABLES Edit ed Result - Final Performing Organization Address City/[facility]/ZIP Co de Phone Number [facility] [address] [phone] * Lipid panel (07/17/2024 8:34 AM GLOBAL COMPENSATION MANAGER) SCRIBED Cholesterol, Total 180 140 - 199 [facility] SCRIBED HDL 76 40 - NA [facility] SCRIBED LDL 87 0 - 130 [facility] SCRIBED Triglycerides 86 0 - 150 [facility] Blood 07/17/2024 8:34 AM GLOBAL COMPENSATION MANAGER us Historical Provider MD LAB BLOOD ORDERABLES Edit ed Result - Final Performing Organization Address [facility] Co de Phone Number [facility] [address] [place] [address], [facility] [phone] * (ABNORMAL) Albumin Creatinine Ratio, Urine (12/27/2023 8:43 AM CDT) SCRIBED Creatinine, Urine 90.70 NA - NA [facility] SCRIBED Microalbumin 22.0(A) 0.0 - 16.6 [facility] SCRIBED Microalb/Creat Ratio 24 0 - 29 [facility] Urine 12/27/2023 8:43 AM CDT us Ailyn Milton CATTYMAN LAB URINE ORDERABLES Melissa l Result Performing Organization Address City/[facility]/ZIP Co de Phone Number [facility] [address] [place] [address], [facility] [phone] * DIABETES EYE EXAM (01/25/2023 10:30 AM CDT) us Historical Provider HEALTH MAINTENANCE Final Result from Last 3 Months or Most Recently Relevant to Health Maintenance Insurance Care Teams Aquatic Laborer Relationship Specialty Start Date End Date Montserrat Bellamy MD [address] [address] PCP - General Internal Medicine 03/20/17 [place] [address] [address] [facility] [address], [place] [address] Nurse Practitioner Endocrinology Diabetes & Metabolism 01/29/24
--- OUTSIDE RECORDS SUMMARY | 2024-10-01 15:13 | XMS_ITS | Clinical Summary ---
Author Organization [facility] Address [address] [facility], [address] [address] Phone Care Team Providers Care Stereotyper Name Role Phone Montserrat Bellamy MD Primary [...] Insurance [place] Care Teams Stereotyper Relationship Specialty Start Date End Date Montserrat Bellamy MD [address] [place] [address] PCP - General Internal Medicine 11/29/18
--- OUTSIDE RECORDS SUMMARY | 2024-10-01 15:13 | XMS_ITS | Clinical Summary ---
Author Organization [facility] Address [address] [place] [address] Care Team Providers Care Slots Manager Name Role Phone Montserrat Bellamy MD Primary Care Provider Source Comments [facility],non-owned Affiliates and Associated Physician Practices is amultiple site organization consisting of ambulatory clinics and hospital sitesin [place], [place], [place] and [place]. This disclosure is being madepursuant to the Care Everywhere program and may not contain all information available regarding this patient. Last updated 18.[facility] Allergies Active Allergy Reactions Criticality Noted Date [...] Active vitamin D, ergocalciferol, (Drisdol) 1.25 MG (72733 UT) capsule Take 1 (one) capsule by [...] Description 09/27/2024 9:00 AM CDT [facility] [address] [facility] [place] [phone] Anusha Morris, ICT HELP DESK OFFICER-MEDICAL ORDERLY Migraine without aura and without status migrainosus, not intractable (Primary Dx); Nonintractable headache, unspecified chronicity pattern, unspecified headache type; Headache, cervicogenic; Chiari malformation type I (HCC) 09/27/2024 Travel 09/25/2024 Orders Only [facility] - ENT [address] [place] [address] Elyssa Gamboa RN Abnormal MRI 09/25/2024 Telephone [facility] - ENT [address], [address] [place] [address] Elyssa Gamboa, early childhood aide classroom (For audiogram) 09/20/2024 Travel 08/15/2024 Travel 08/13/2024 8:30 AM REHAB/PRE VOCATIONAL COUNSELOR Office Visit [facility] - Neurosurgery [address] [place] [address], [place] [phone] Douglas Macdonald MD Nonintractable headache, unspecified chronicity [...] 36.6 C (97.8 F) 08/13/2024 8:29 AM REHAB/PRE VOCATIONAL COUNSELOR Respiratory Rate 16 09/16/2023 12:0 7 AM CDT Oxygen Saturation 98% 09/27/2024 8:5 8 AM CDT Inhaled Oxygen Concentration - - Weight 73 kg (161 lb) 09/27/2024 8:58 AM CDT Height 154.9 cm (5' 1 ) 08/13/2024 8:29 AM REHAB/PRE VOCATIONAL COUNSELOR Body Mass Index 30.42 08/13/2024 8:29 AM REHAB/PRE VOCATIONAL COUNSELOR Plan of Treatment Upcoming Encounters Date Type Department Care Team (Late st Contact Info) Description 01/27/2025 10:00 AM CDT Office Visit [facility] - Neurology [address] [place] [phone] Anusha Morris, ICT HELP DESK OFFICER-MEDICAL ORDERLY [address] [place] [address] [place] [phone] Health Maintenance Due Date Last Done Comments [...] 7 - 26 mg/dL 09/16/2023 1:00 AM [facility] Creatinine 1.01(H) 0.56 - 0.96 mg/dL 09/16/2023 1:00 AM [facility] Sodium 136 136 - 145 mmol/L 09/16/2023 1:00 AM [facility] Potassium 4.6(H) 3.5 - 4.5 mmol/L 09/16/2023 1:00 AM [facility] Chloride 104 98 - 107 mmol/L 09/16/2023 1:00 AM [facility] CO2 21(L) 22 - 29 mmol/L 09/16/2023 1:00 AM [facility] Glucose 235(H) 70 - 115 mg/dL 09/16/2023 1:00 AM [facility] Calcium 9.4 8.4 - 10.2 mg/dL 09/16/2023 1:00 AM [facility] Protein Total 7.4 6.0 - 8.3 g/dL 09/16/2023 1:00 AM [facility] Albumin 3.7 3.4 - 5.0 g/dL 09/16/2023 1:00 AM [facility] Bilirubin Total 0.4 0.2 - 1.2 mg/dL 09/16/2023 1:00 AM [facility] Alkaline Phosphatase 98 40 - 150 U/L 09/16/2023 1:00 AM [facility] ALT 12 5 - 55 U/L 09/16/2023 1:00 AM [facility] AST 21 5 - 34 U/L 09/16/2023 1:00 AM [facility] Anion Gap 11 6 - 16 09/16/2023 1:00 AM [facility] BUN/Creatinine Ratio 17 7 - 23 09/16/2023 1:00 AM [facility] Osmolality Calculated 291 275 - 295 mOsm/kg 09/16/2023 1:00 AM [facility] Albumin/Globulin Ratio 1.0(L) 1.1 - 2.3 09/16/2023 1:00 AM [facility] eGFR by CKD-EPI 63(L) >=90 mL/min/1.7 3 m2 09/16/2023 1:00 AM CDT [facility] Blood BLOOD SPECIMEN / Unknown Venipuncture / Unknown 09/16/2023 12:22 AM CDT 09/16/2023 12:31 AM CDT Garrett Snyder MD LAB - CHEMISTRY JOHN CONRAD Performing Organization Address City/State/[facility] Co de Phone Number [facility] [address] [place] [address], [facility] [phone] from Last 3 Months or Most Recently Relevant to Health Maintenance Care Teams Slots Manager Relationship Specialty Start Date End Date Montserrat Bellamy MD [address] [place], [place] [phone] PCP - General 10/20/15
--- OUTSIDE RECORDS SUMMARY | 2024-10-01 15:13 | XMS_ITS | Encounter Summary ---
Author Organization [facility] Address [address] [facility] [place] [address] Care Team Providers Care Engine Cleaner Name Role Phone Montserrat Bellamy MD Primary Care Provider Encounter Details Date Type Department Care Team (Late st Contact Info) Description 09/25/2024 Orders Only [facility] - ENT [address], [address] [place] [address] Elyssa Gamboa RN Abnormal MRI [...] Visit [facility] - Neurology [address] [facility] [place] [phone] Anusha Morris, DIRECTOR STAFFING-REFRACTORY MANAGER [address] [place] [place] [address] [place] [phone] documented as of this encounter Visit Diagnoses Diagnosis Abnormal MRI Other nonspecific (abnormal) findings on radiological and other examinations of body structure documented in this encounter Care Teams Engine Cleaner Relationship Specialty Start Date End Date Montserrat Bellamy MD [address] [place], [place] [phone] PCP - General 10/20/15 documented as of this encounter
[2024-10-01 15:38] LABS: Troponin I < 0.012 ng/mL (0.000-0.034)
[2024-10-01 16:41] VITALS: BP 117/79; PULSE 70; RESP 14; O2SAT 100
== END 2024-10-01 17:39 | disposition home or self-care (01) ==
PROVIDERS: Emergency Provider Emergency Medicine; PCP Internal Medicine Infectious Disease
DX: R07.9 Chest pain, unspecified (principal); I10 Essential (primary) hypertension; E11.9 Type 2 diabetes mellitus without complications
CPT/HCPCS: 36415; 71046; 80053; 83690; 84484; 85025; 85610; 85730; 93005; 99284

== ENCOUNTER 2024-10-21 07:54 | Outpatient (CLI) | payer OTHER, SELFPAY ==
--- OUTSIDE RECORDS SUMMARY | 2024-10-21 08:03 | XMS_ITS | Clinical Summary ---
Author Organization [facility] Address [address] [facility], [address] [phone] Phone Care Team Providers Care Billet Straightener Name Role Phone Montserrat Bellamy MD Primary [...] Insurance [place] Care Teams Billet Straightener Relationship Specialty Start Date End Date Montserrat Bellamy MD [address] [place] [address] PCP - General Internal Medicine 11/29/18
--- OUTSIDE RECORDS SUMMARY | 2024-10-21 08:04 | XMS_ITS | CONTINUITY OF CARE DOCUMENT ---
Author Name leydisurjit leydisurjit Address Unknown Organization [facility] Address [address] [facility] [address] [place] [address] Phone [phone] Care Team Providers Care Material Assembler Name Role Phone Dennys Tapia MD Unavailable [phone] MARIA D MURPHY MD Unavailable MARIA [...] In-person encounter Office Visit Dennys Tapia MD [place] [facility] - In-person encounter Office Visit Dennys Tapia MD [place] [facility] - In-person encounter Office Visit Dennys Tapia MD [place] [facility] Chest pain-type to be determinedShortness of [...] Rena red republican ID [place] MEDICAID Medicaid [id number] ADVANCE DIRECTIVES Name Date DISCUSSED - NO DECISION MADE TREATMENT PLAN Date Name Performer [id number],C,p t states that she had an episode [...] 0.4 Mg Tablet, Sublingual (Nitroglycerin) Adela Wright PORCELAIN BUILDUP ASSISTANT [id number],C, B P today: 141/90 P rior BP: 135/89 (01/05/2023) Her updated medication list for this problem includes: Losartan 100 Mg Tablet (Losartan) ..... Daily Aspirin 81 Mg Tablet,delayed Release (dr/ec) (Aspirin) ..... Take 1 tablet by mouth once a day Metoprolol Tartrate 25 Mg Tablet (Metoprolol tartrate) ..... Take 1 tablet by mouth twice a day Adela Wright NP [id number],C,follows Dr. Neal Wright NP [id number],Yudy Bailey per PCP. H er updated medication list for this problem includes: Aspirin 81 Mg Tablet,delayed Release (dr/ec) (Aspirin) ..... Take 1 tablet by mouth once a day Trulicity 0.75 Mg/0.5 Ml Pen Injector (Dulaglutide) Levemir Flextouch U-100 Insuln 100 Unit/ml (3 Ml) Insulin Pen (Insulin detemir u-100) Losartan 100 Mg Tablet (Losartan) Metformin 1,000 Mg Tablet (Metformin) Yarahenrry Angelito PARSONS [id number],C, B P today: 135/89 P rior BP: 139/90 (10/21/2022) Her updated medication list for this problem includes: Aspirin 81 Mg Tablet,delayed Release (dr/ec) (Aspirin) ..... Take 1 tablet by mouth once a day Metoprolol Tartrate 25 Mg Tablet (Metoprolol tartrate) ..... Take 1 tablet by mouth twice a day Losartan 100 Mg Tablet (Losartan) Cash Eaton NP [id number],C, S he had a positive stress test. She continues to have chestt pain described as pressure like with heaviness. She as some associtaed shortness of breath as noted above. W ill schedule for LT/RT cardiac cath Cash Eaton NP [id number],C, P atient reports shortness of breath with exertion and with activity of daily living as well as prolonged conversations. W ill schedule for cardiac cath as noted below. Cash Eaton NP [id number],S, Dennys Tapia MD [id number],C,T his is concerning for angina. However, she [...]
--- OUTSIDE RECORDS SUMMARY | 2024-10-21 08:04 | XMS_ITS | Data Portability ---
Author Organization [place] - [facility], Main Office Address [address] [place] [address] Care Team Providers Care Containers Sales Representative Name Role Phone MARIA D MURPHY Primary [...] This note is dictated and transcribed by [employer]. Production Planning Supervisor variances may occur. Despite proofreading, typographical errors may occur. Occasional wrong-word or 'hfjil-u-euum' substitutions may have occurred due to the [...] This note is dictated and transcribed by [employer]. Production Planning Supervisor variances may occur. Despite proofreading, typographical errors may occur. Occasional wrong-word or '[id number]-[id number]' substitutions may have occurred due to the [...] schedule 2023 024 JACINTO Kitchen MD, [address] [facility], [facility] [address], [place], [address], 04/30/2024 09:50:49 Procedures None recorded. Surgeries None [...] observ ation record ed. [email or web address] [facility] [place] [address] [facility] [address], [place], [address], 12/06/2023 09:12:46 Result Notes None recorded. Problems Name Problem SNOMED Code Status Onset Date Resolution Date Notes Provider Name and Address Organization Details Recorded Time Pain of right shoulder joint 7101079329694 9100 Active 2021 Not Available [facility] 3 18:36:31 Carpal tunnel syndrome of right wrist 1042817144570 08 Active 2021 Not Available [facility] 3 18:36:31 Lateral epicondyli tis of right humerus 3621947649603 07 Active 2021 Not Available [facility] 3 18:36:31 Vitamin D deficiency 86423431 Active 2021 Not Available [facility] 3 18:36:31 Dyslipidem ia 759641252 Active 2021 Not Available [facility] 3 18:36:31 Hypertensi ve disorder 96142896 Active 2016 Not Available [facility] 3 18:36:31 Type 2 diabetes mellitus 99819066 Active 2019 Not Available [facility] 3 18:36:32 Uncontroll ed type 2 diabetes mellitus 236659716 Active 2021 Not Available [facility] 3 18:36:32 Essential hypertensi on 83614074 Active 2021 Not Available [facility] 3 18:36:32 Diabetes mellitus 62289869 Active 2016 Not Available [facility] 3 18:36:32 Impingemen t syndrome of right shoulder region 0716563687383 02 Active 2022 ZIA Black, [facility] [employer] [facility] 3 16:18:13 Cervical radiculopa thy 91228661 Active 2022 Yue Acharya null, [employer] [facility] 3 17:12:41 Ulnar nerve entrapment at elbow 925774342 Active 2022 Tee Kitchen MD [address], [address], [place], [address] , [facility] [employer] [facility] 3 11:57:27 Bunion 583930281 Active 2022 Lio Angel DPM [address], [address], [place], [address] , [facility] [employer] [facility] 3 16:10:49 Foot callus 528659572 Active 2022 Lio Angel DPM [address], [address], [place], [address] , [facility] [employer] [facility] 3 16:10:58 Pain in left foot 2673981699394 07 Active 2022 Lio Angel DPM [address], [address], [place], [address] , [facility] [employer] [facility] 3 16:11:02 Hammer toe 657211708 Active 2022 Lio Angel DPM [address], [address], [place], [address] , [facility] 3 16:11:13 Hammer toe 613550873 Active 2022 Lio Angel DPM [address], [place], [address] , [facility] 3 16:11:19 Bunion 691258259 Active 2022 Lio Angel DPM [address], [place], [address] , [facility] 3 16:12:05 Pain of right knee joint 0961370573828 00 Active 2022 ZIA Padilla null, [facility] 3 11:09:01 Pain of bilateral hands 8782454171532 9109 Active 2022 Yue Acharya null, [facility] 3 11:59:01 Acquired trigger finger of left middle finger 9733126756336 02 Active 2022 ORESTES Driscoll [address], [address], [place], [address] , [facility] 3 12:36:36 Pain in right foot 2923526355175 07 Active 2022 Lio Angel DPM [address], [place], [address] , [facility] 3 16:58:47 Hammer toe 771594542 Active 2022 Lio Angel DPM [address], [address], [place], [address] , [facility] 3 16:58:51 Trigger finger of left hand 7815009920716 9107 Active 2023 Dave Crane MD [address], [address], [place], [address] , [facility] 4 13:07:30 Dystrophia unguium 82382451 Active 2023 Lio Angel DPM [address], [facility] [address], [place], [address] , [facility] 4 14:08:00 Hammer toe 234574843 Active 2023 Lio Angel DPM [address], [facility] [address], [place], [address] , [facility] 4 14:08:18 Pain of left hand 7616729418802 03 Active 2023 ZIA Padilla, [facility] 4 10:34:46 Achilles tendinitis 89268839 Active 2023 Kathie Tolbert CNA null, [facility] 4 11:02:21 Pain of left hip joint 2178694534966 [address], ATC L null, [facility] 4 09:12:41 Osteoarthr itis of left hip joint 5274564082398 08 Active 2023 Yue Acharya null, [facility] 4 09:31:44 Acquired deformity of toe 68472140 Active 2023 Lio Angel DPM [address], [facility] [address], [place], [address] , [facility] 4 17:00:39 Callosity on toe 888326717 Active 2023 Lio Angel DPM [address], [facility] [address], [place], [address] , [facility] 4 17:01:52 Trigger finger of right hand 7679182602154 9101 Active 2023 ZIA Padilla null, [facility] 4 10:36:30 Dupuytren' s contractur e of finger 930586996 Active 2023 Yue jordan [facility] 10:57:08 Notes:Some problems listed i n Document: #[id number] could not be added to this patient's chart. Please review this document and add these problems to the patient's chart manually as needed. Problem Notes None recorded. Procedures Surgical History Date Name Laterality Status Provider Name and Address Organization Details Recorded Time 08/08/19 25 Nail Debridement completed ANTONINA Singleton [address], [place], [address], [facility] 08/08/2024 18:01:37 08/08/19 25 Callus Debridement 2-4 completed Lio Angel DPM [address], [address], [place], [address], [facility] 08/08/2024 18:00:46 04/02/20 24 Nail Debridement completed Lio Angel DPM [address], [address], [place], [address], [facility] 04/29/2024 10:39:58 04/02/20 24 Callus Debridement, One completed Lio Angel DPM [address], [address], [place], [address], [facility] 04/29/2024 10:39:46 11/14/19 24 Nail Debridement completed ANTONINA Singleton [address], [place], [address], [facility] 11/14/2023 17:30:58 11/14/19 24 Callus Debridement, One completed Lio Angel DPM [address], [address], [place], [address], [facility] 11/14/2023 17:31:02 10/12/19 24 Hand completed ZIA Padilla [facility] 12/04/2023 14:50:09 09/19/19 24 Hand completed Josselyn Mayer Sekou [facility] 12/04/2023 14:47:22 09/12/19 24 Nail Debridement completed Lio Angel DPM [address], [address], [place], [address], [facility] 09/20/2023 14:07:45 09/12/19 24 Callus Debridement 2-4 completed Lio Angel DPM [address], [address], [place], [address], [facility] 09/20/2023 14:07:32 06/13/20 23 Nail Debridement completed Lio Angel DPM [address], [address], [place], [address], [facility] [employer] [facility] 06/13/2023 16:57:26 06/13/20 23 Callus Debridement 2-4 completed Lio Angel DPM [address], [place], [address], [facility] [employer] [facility] [employer] [facility] 06/13/2023 16:58:21 03/13/20 23 Callus Debridement, One completed Lio Angel DPM [address], [address], [place], [address], [facility] [employer] [facility] [place] [facility] 03/13/2023 17:48:15 11/04/19 23 Nail Debridement completed Lio Angel DPM [address], [address], [place], [address], [facility] [employer] [facility] [place] [facility] 11/03/2022 16:10:35 11/04/19 23 Callus Debridement, One completed Lio Angel DPM [address], [address], [place], [address], [facility] [place] [facility] 11/03/2022 16:10:27 04/29/20 21 procedure on tendon completed Not Available [facility] 08/24/2022 18:35:27 Hysterectomy completed Not Available [facility] 08/24/2022 18:35:27 Imaging Results Imaging Date Name Status LastModified by Organiz ation Details LastModified Time 12/06/2023 XR, hip + pelvis, unilateral completed [email or web address] [facility] [place] [address], [place], [address], 12/06/2023 09:12:46 Procedure Notes None recorded. Medical Equipment None Reported. Allergies Allergen ID Allergen Name Allergen Category Reaction Reaction Severity Criticality Documentation Date Start Date Code Code System Note Provider Name and Address Organization Details Recorded Time 13081 Tetanus toxoid adsorbed Not available rash Not available Not available 08/24/2022 44355 RxNorm Not Available [facility] 3 18:37:36 63723 Product containin g penicilli n (product) medicatio n Not available Not available Not available 08/24/2022 76810 8001 SNOMED Not Available [facility] 3 18:37:36 02626 Iodinated contrast media (substanc e) medicatio n Not available Not available Not available 08/24/2022 41867 2004 SNOMED Not Available [facility] 3 18:37:36 04948 diphtheri a, pertussis , tetanus vaccine Not available Not available Not available Not available 08/24/2022 33604 UNK Not Available [facility] 3 18:37:36 Medications Name Sig Start Date [...] Not Available Not Available No t Available [place] 10 mg-325 mg tablet 1-2 tablets every [...] Not Available Not Available [employer] 2 [place] USE DIRECTED 08/28 completed Not Available Not [...] Updated DateTime 12/25/2023 154.94 cm 28.5 kg/m2 70972.45 g Yue Patrizia [employer] [facility] 12/25/2023 10:21:06 Date Recorded Body height Body mass index (BMI) Body weight Pain severity - 0-10 verbal numeric rating [Score] - Reported Provider Name and Address Organization Details Last Updated DateTime 02/05/2024 154.94 cm 29.3 kg/m2 26988.82 g 2 ZIA Padilla [facility] [employer] [facility] 02/05/2024 10:06:29 Date Recorded Body height Body mass index (BMI) Body weight Heart rate Respiratory rate Oxygen saturation Oxygen saturation in Arterial blood by Pulse oximetry Systolic blood pressure Diastolic blood pressure Provider Name and Address Organization Details Last Updated DateTime 4 154.94 cm 29.3 kg/m2 36136.8 2 g 86 /min 14 /min 99 % 99 % 118 mm[Hg] 71 mm[Hg] Zohreh Cristobal [facility] [employer] [facility] 16:45:00 Date Recorded Body height Body mass index (BMI) Body weight Pain severity - 0-10 verbal numeric rating [Score] - Reported Provider Name and Address Organization Details Last Updated DateTime 04/29/2024 154.94 cm 29.3 kg/m2 04717.82 g 5 ZIA Padilla [facility] [employer] [facility] 04/29/2024 10:35:42 Date Recorded Body height Body mass index (BMI) Body weight Heart rate Respiratory rate Oxygen saturation Oxygen saturation in Arterial blood by Pulse oximetry Systolic blood pressure Diastolic blood pressure Provider Name and Address Organization Details Last Updated DateTime 5 154.94 cm 29.3 kg/m2 62190.8 2 g 71 /min 14 /min 98 % 98 % 141 mm[Hg] 86 mm[Hg] Zohreh Cristobal [facility] 5 17:30:32 Social History Question Answer Notes LastModified by Organizat ion Details LastModified Time Tobacco Smoking Status Never Smoker Not Available [facility] 08/24/2022 18:35:25 What Is Your Level Of Alcohol Consumption? None [id number] Information not available 08/24/2022 What Is Your Level Of Caffeine Consumption? Occasional [id number] Information not available 08/24/2022 In The 14 Days Before Symptom Onset, Have You Had Close Contact With A Laboratory-confir med COVID-19 While That Case Was Ill? No [id number] Information not available 08/24/2022 In The 14 Days Before Symptom Onset, Have You Had Close Contact With A Person Who Is Under Investigation For COVID-19 While That Person Was Ill? 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 12/25/2023 [email or web address] Information not available 12/25/2023 What Is Your Relationship Status? [id number] Information not available 08/24/2022 Have You Recently Traveled Abroad? No [id number] Information not available 08/24/2022 Sex: Female Functional Status None recorded. Mental Status None recorded. Family History Relationship Description Onset Age of this Age Resolved Age Notes LastModified by Organization Details LastModified Time Mother Essential hypertension [email or web address] Not available 10:22:36 Mother Diabetes mellitus [email or web address] Not available 12/24 10:22:54 Unspecified Relation Kidney disease [id number] Not available 08/24/2022 18:35:28 Unspecified Relation Diabetes mellitus [id number] Not available 08/24/2022 18:35:28 Sister Cerebrovascu lar accident [id number] Not available 08/24/2022 18:35:28 Father Essential hypertension [email or web address] Not available 10:22:39 Father Diabetes mellitus [email or web address] Not available 12/24 10:22:49 Medical History Condition [...] SNOMED-CT Code Diagnosis ICD10 Code Diagnosis Note [id number] [facility] [place] [address] [place] [address] 01/27/2021 00:00:00 01/27/2021 18:19:21 [id number] _FEROZ_ IGRATION_ DEFAULT_1 _1 , 02/05/2021 00:00:00 02/15/2021 10:32:29 [id number] _MILADYSENA_M IGRATION_ DEFAULT_1 _1 , 03/04/2021 00:00:00 03/06/2021 10:48:10 [id number] [facility] [place] [address] [place] [address] 03/23/2021 00:00:00 03/23/2021 14:34:25 [id number] [facility] [place] [address] [place] [address] 05/18/2021 00:00:00 05/18/2021 14:18:19 [id number] [facility] [place] [address] [place] [address] 05/25/2021 00:00:00 05/25/2021 12:04:03 [id number] [facility] [place] [address] [place] [address] 06/22/2021 00:00:00 06/22/2021 13:55:23 [id number] _FEROZ_ IGRATION_ DEFAULT_1 _1 , 08/12/2021 00:00:00 08/12/2021 12:16:31 [id number] [facility] [place] [address] [place] [address] 08/24/2021 00:00:00 08/24/2021 14:09:31 [id number] [facility] [place] [address] [place] [address] 10/19/2021 00:00:00 10/19/2021 10:49:18 [id number] [facility] [place] [address] [place] [address] 12/17/2021 00:00:00 12/17/2021 11:57:43 [id number] _ATHENA_M IGRATION_ DEFAULT_1 _1 , 01/20/2022 00:00:00 01/20/2022 16:46:55 [id number] [facility] [place] [address] [place] [address] 03/08/2022 00:00:00 03/08/2022 12:05:57 [id number] [facility] [place] [address] [place] [address] 04/26/2022 00:00:00 04/26/2022 10:05:35 [id number] [facility] [place] [address] [place] [address] 05/31/2022 00:00:00 05/31/2022 11:07:11 [id number] [facility] [place] [address] [place] [address] 06/01/2022 00:00:00 06/01/2022 16:44:47 [id number] [facility] [place] [address] [place] [address] 06/21/2022 00:00:00 06/21/2022 13:51:57 [id number] [facility] [place] [address] [place] [address] 07/19/2022 00:00:00 07/19/2022 12:58:42 [id number] [facility] [place] [address] [place] [address] 08/23/2022 00:00:00 08/23/2022 17:22:53 [id number] ORESTES Drisocll [facility] [place] [address] [place] [address] 09/21/2022 16:15:54 09/21/2022 17:15:54 Pain of right shoulder joint 5630597843 7942094 M25.511 Impingemen t syndrome of right shoulder region 0146300373 82842 M75.41 Cervical radiculopathy 28038634 M54.12 [id number] Tee Kitchen MD [facility] [place] [address] [place] [address] 10/25/2022 10:29:31 10/25/2022 10:57:09 Pain of right shoulder joint 7350720175 9568442 M25.511 Impingemen t syndrome of right shoulder region 0847599050 07611 M75.41 patient will continue with physical therapy working on range of motion of her elbow and shoulder strengthen ing. We will see her back if worsening of symptoms only. Cervical radiculopathy 52441652 M54.12 Ulnar nerv e entrapment at elbow 270276577 G56.21 patient is making good progress at [...] and good return of her sensation now [id number] Lio Angel DPM [facility] [place] [address] [place] [address] 11/03/2022 15:23:54 11/03/2022 17:25:55 Bunion 597388924 M21.619 right footeducat ed on treatment optionsFor now continue conservati ve therapy with offloading to prevent wounds infection Hammer toe 759445045 M20 .41 right 5th toeas above Foot callus 174486672 L8 4 debrided sub 5th metatarsal headContin ue supportive shoerecomm end accommodat drew diabetic inserts to prevent wounds infection Pain in left foot 450849 2853 97279 M79.672 as above [id number] Kat Randle NP [facility] [place] [address] [place] [address] 01/09/2023 10:44:40 01/09/2023 11:32:43 Pain of right knee joint 4271963112 03883 M25.561 [id number] Ghada Laws MD [facility] [place] [address] [place] [address] 02/09/2023 15:50:40 02/09/2023 17:33:29 Uncontrolled type 2 diabetes mellitus 974333865 E11.65 a1c of 10.7% up from 8.5%- [...] regarding her diabetic care and concern. Dyslipidemia 780650809 E 78.5 Continue statin therapy. Spent up [...] answered and refills necessary at visit today. [id number] ORESTES Driscoll [facility] [place] [address] [place] [address] 03/06/2023 11:56:25 03/06/2023 12:22:39 Pain of bilateral hands 0367497889 8363777 M79.641 M79.642 Acquired t shuttle driver finger of left middle finger 5054621050 01416 M65.910 [id number] Lio Angel DPM [facility] [place] [address] [place] [address] 03/13/2023 17:23:56 03/14/2023 16:00:37 Foot callus 206688649 L84 debrided sub 5th metatarsal headContin ue supportive shoerecomm end accommodat drew diabetic inserts to prevent wounds infection Bunion 116360409 M21.61 9 right footeducat ed on treatment optionsFor now continue conservati ve therapy with offloading to prevent wounds infection Hammer toe 914947510 M20 .41 right 5th toeas above Pain in left foot 231104 4632 99062 M79.672 as above [id number] Lio Angel DPM [facility] [place] [address] [facility] [place] [address] 06/13/2023 16:28:48 06/14/2023 11:53:36 Pain in right foot 0946163755 49463 M79.671 secondary to hammertoe and bunion Hammer toe 551482959 M20 .41 right 5th toediscuss ed options in detail, denies surgerycon tinue conservati ve offloading to prevent wounds infection Foot callus 139721813 L8 4 debrided sub 5th metatarsal headContin ue supportive shoerecomm end use of pumice stone daily and Amlactin lotionreco mmend accommodat drew diabetic inserts to prevent wounds infection Diabetes mellitus 974670 09 E11.9 continue with diabetic control per PCPcheck foot daily for wounds infection, if present seek medical attention immediatel yContinue supportive shoe gear Bunion 923033440 M21.61 9 right footeducat ed on treatment optionsFor now continue conservati ve therapy with offloading to prevent wounds infection [id number] Dave Crane MD [facility] [address] [address] 2023 12:08:27 2023 12:42:00 Pain of bilateral hands 5371819176 2918208 M79.641 M79.642 Trigger fi nger of left hand 6839264466 5734276 M65.30 [id number] Dave Crane MD [facility] [address] [address] 09/04/2023 11:00:16 09/04/2023 11:18:27 Trigger finger of left hand 7165768173 0467468 M65.30 [id number] Lio Angel DPM [facility] [place] [address] [place] [address], [address] [place] [address] 09/12/2023 16:20:46 09/20/2023 16:02:48 Uncontrolled type 2 diabetes mellitus 067046693 E11.65 [id number] 10.7 on 02/07/2023 recommend better glucose controlrev iewed with patientpat ient is high risk for Charcot developmen t and other systemic diseases secondary to uncontroll ed diabetes- will require continued routine foot care Dystrophia unguium 09006 009 L60.3 nails debrided without incident Foot callus 684483984 L8 4 debrided sub 5th metatarsal headContin ue supportive shoerecomm end use of pumice stone daily and Amlactin lotionreco mmend accommodat drew diabetic inserts to prevent wounds infection Hammer toe 499391389 M20 .40 patient at this time is not a surgical candidate due to glucosedis cussed options in detailcont inued conservati ve management to prevent wounds [id number] Dave Crane MD [facility] [address] [place] [address] 10/02/2023 10:42:19 10/02/2023 11:34:11 Trigger finger of left hand 1922854051 0162945 M65.30 Pain of ri ght knee joint 6607923858 84464 M25.899 [id number] Dave Crane MD [facility] [place] [address] [place] [address] 10/11/2023 10:30:15 10/11/2023 11:48:43 Pain of left hand 0211607853 47661 M79.453 [id number] Dave Crane MD [facility] [place] [address] [place] [address] 10/25/2023 10:52:15 10/25/2023 11:12:28 Trigger finger of left hand 8566133169 1187521 M65.30 [id number] Dave Crane MD [facility]_[address] [address] 11/13/2023 10:04:01 11/13/2023 10:42:56 Trigger finger of left hand 4022355419 1128503 M65.332 Pain of bi lateral hands 7214775558 2749818 M79.641 M79.782 [id number] Lio Angel DPM [facility] [facility] [place] [address] [facility], [facility] [address] [place] [address] 11/14/2023 16:41:02 11/14/2023 17:39:16 Uncontrolled type 2 diabetes mellitus 138220836 E11.65 Chronicrec ommend Good glucose controlrev iewed with patientpat ient is high risk for Charcot developmen t and other systemic diseases secondary to uncontroll ed diabetes- will require continued routine foot care Dystrophia unguium 79187 009 L60.3 nails debrided without incident Foot callus 525301074 L8 4 debrided sub 5th metatarsal headContin ue supportive shoerecomm end use of pumice stone daily and Amlactin lotionreco mmend accommodat drew diabetic inserts to prevent wounds infection Hammer toe 834649795 M20 .40 patient at this time is not a surgical candidate due to glucosedis cussed options in detailcont inued conservati ve management to prevent wounds [id number] Dave Crane MD [facility] [place] [address] [place] [address] 12/06/2023 08:53:19 12/06/2023 09:35:10 Pain of left hand 8180190224 91213 M79.642 Pain of le ft hip joint 7852838986 98141 M25.552 Osteoarthr itis of left hip joint 2672360061 57508 M16.12 [id number] Dave Crane MD [address] [address] 12/25/2023 09:56:39 12/25/2023 10:58:56 Trigger finger of left hand [id number] 2592066 M65.867 [id number] Dave Crane MD [address] [address] 02/05/2024 10:01:02 02/05/2024 10:39:28 Trigger finger of left hand 6400490970 0706449 M65.332 Acquired t shuttle driver finger of left middle finger 9461177440 27173 M65.332 Pain of left hand 269904 8368 98792 M79.257 [id number] Lio Angel DPM [facility] [place] [address] [facility], [address] [place] [address] 04/02/2024 16:41:30 06/21/2024 09:24:48 Acquired deformity of toe 65666489 M20.61 right 5th toe Foot callus 381997388 L8 4 debrided sub 5th metatarsal head, rightConti nue supportive shoerecomm end use of pumice stone daily and Amlactin lotionreco mmend accommodat drew diabetic inserts to prevent wounds infection Dystrophia unguium 56275 009 L60.3 nails debrided without incident Pain in right foot 49750 56250 02457 M79.671 secondary to hammertoe and bunion Callosity on toe 20091003 01 L84 medial right IPJ great toe [id number] Dave Crane MD [facility] [place] [address] [place] [address] 04/29/2024 10:33:27 04/29/2024 11:03:44 Pain of left hand 7681437079 32450 M79.642 Dupuytren' s contracture of finger 951965736 M72.0 [id number] Lio Agnel DPM [facility] [place] [address] [place] [address] 08/08/2024 16:31:20 08/23/2024 13:43:51 Diabetes mellitus 87940257 E11.9 continue with diabetic control per PCPcheck foot daily for wounds infection, if present seek medical attention immediatel yContinue supportive shoe gear Foot callus 274858552 L8 4 debrided sub 5th metatarsal head, rightConti nue supportive shoerecomm end use of pumice stone daily and Amlactin lotionreco mmend accommodat drew diabetic inserts to prevent wounds infection Hammer toe 158068198 M20 .40 continue conservati ve management recommend surgical correction but patient declines Dystrophia unguium 43430 009 L60.3 nails debrided without incident Health Concerns Section Related Observation LastModified by Organization Detai ls LastModified Time None Recorded Concern Status LastModified by Organization Details LastModified Time None Recorded Advance Directives Directive None Recorded Payers Encounter Date Sequence Insurance Name Policy Number Policy Whaley Covered Member ID Whaley Member ID Guarantor Name 12/25/2023 1 [facility] (MEDICAID HMO) [id number] Steffanie Dennis [id number] Steffanie Dennis 02/05/2024 1 [facility] (MEDICAID HMO) [id number] Steffanie Dennis [id number] Steffanie Dennis 04/02/2024 1 [facility] (MEDICAID HMO) [id number] Steffanie Dennis [id number] Steffanie Dennis 04/29/2024 1 [facility] (MEDICAID HMO) [id number] Steffanie Dennis [id number] Steffanie Dennis 08/08/2024 1 [facility] (MEDICAID HMO) [id number] Steffanie Dennis [id number] Steffanie Dennis Notes Date Note Type Note [...] denies any other complaints. Lio Angel DPM [address] [place] [address], [phone], [facility] [employer] [facility] 04/29/2024 10:40:33 OBGyn Episode No OBEpisode recorded.
--- OUTSIDE RECORDS SUMMARY | 2024-10-21 08:04 | XMS_ITS | Referral Summary ---
Author Organization [facility] Physician Office Building [address] [address] [place] [address] Care Team Providers Care Information Systems Manager Name Role Phone Montserrat Bellamy MD Primary Care Provider Ailyn Milton WATCH CRYSTAL CUTTER Unavailable Encounters Date Type Department Care Team Description 09/20/2024 Orders Only [facility] Diabetes and Endocrinology [address] [place] [address] ProviderCaterina MD 09/17/2024 Results Follow-Up [facility] Diabetes and Endocrinology [address] [place] [address] Ailyn Milton NP 09/16/2024 11:45 AM CDT - 09/16/2024 11:59 PM CDT Hospital Encounter [facility] [address] [place] [address] Type 2 diabetes mellitus with hyperglycemia, with long-term current use of insulin (HCC); Hypertension associated with type 2 diabetes mellitus (HCC) Discharge Disposition: Discharge to home or self care 09/16/2024 11:45 AM CDT Lab [facility] Outpatient Lab at [address] [address] Essential hypertension (Primary Dx); Hypertension associated with type 2 diabetes mellitus (HCC) 09/16/2024 11:00 AM CDT Office Visit [facility] Diabetes and Endocrinology [address] [place] [address] Ailyn Milton, ISSA Type 2 diabetes mellitus with hyperglycemia, with long-term current use of insulin (HCC) (Primary Dx); Hypertension associated with type 2 diabetes mellitus (HCC) 07/29/2024 Orders Only [facility] Diabetes and Endocrinology [address] [place] [address] Provider, MD Caterina from Last 3 Months [...] Medium 04/17/2017 Medications losartan (COZAAR) 100 mg tabletIndication s:Essential hypertension Take 1 tablet (100 mg total) by mouth daily 04/17/20 17 Active acetaminophen ER (TYLENOL) 650 mg 8 [...] mg enteric coated tablet Take by mouth 01/06/20 23 Active OneTouch Verio test strips strip 10/07/19 24 Active cromolyn (OPTICROM) 4 % ophthalmic solution 1 drop by ophthalmic route. 01/05/20 21 Active ergocalciferol (VITAMIN D) 50,000 unit capsule Take 1 capsule (50,000 Units total) by mouth once a week Active ezetimibe (ZETIA) 10 mg tablet Take 1 tablet (10 mg total) by mouth daily Active fluticasone propionate (FLONASE) 50 mcg/actuation nasal spray 07/22/19 24 Active metoprolol tartrate (LOPRESSOR) 25 mg immediate [...] TOTAL OF 3 DOSES IN 15 MINUTES 06/26/18 70 Active TRUEplus Pen Needle 32 gauge x needle USE 1 ONCE DAILY 07/11/19 24 Active insulin degludec (TRESIBA) 100 unit/mL (3 mL) pen for injection Inject 0.25 mL (25 Units total) under the skin nightly 15 mL 6 10/10/19 24 Active Additional Information Patient not taking.Reported on 09/16/2024 metFORMIN (GLUCOPHAGE) 1,000 mg tabletIndication s:Type 2 diabetes mellitus with hyperglycemia, with long-term current use of insulin ([facility]) Take 1 tablet (1,000 mg total) by mouth 2 (two) times a day after breakfast and dinner 180 tablet 2 10/10/19 24 Active insulin lispro (HumaLOG, ADMELOG) 100 unit/mL vial for injection Inject 6-10 Units under the skin 2 (two) times a day before breakfast and dinner 15 mL 6 10/10/19 24 Active albuterol HFA (PROVENTIL HFA,VENTOLIN HFA,PROAIR HFA) 90 mcg/actuation inhaler INHALE 2 PUFFS BY MOUTH EVERY 6 HOURS NEEDED FOR SHORTNESS OF BREATH 10/07/19 24 Active insulin lispro (HumaLOG, ADMELOG) 100 unit/mL pen for injection INJECT 6 TO 10 UNITS SUBCUTANEOUSLY TWICE DAILY BEFORE BREAKFAST AND BEFORE SUPPER 10/10/19 24 Active Farxiga 10 mg tablet Take 1 tablet by mouth once daily 90 tablet 1 08/22/19 25 Active LANTUS 100 unit/mL (3 mL) pen for injectionIndicat ions:Type 2 diabetes mellitus with hyperglycemia, with long-term current use of insulin (HCC) INJECT 26 UNITS SUBCUTANEOUSLY NIGHTLY 30 mL 08/27/19 Active liraglutide (Victoza 3-Ap) 0.6 mg/0.1 mL (18 mg/3 mL) injectionIndicat ions:type 2 diabetes mellitus Inject 1.8 mg under the skin daily Indications: type 2 diabetes mellitus 27 mL 3 09/17/19 25 026 Active Active Problems Problem Noted Date Diagnosed [...] Will update CMP. Verified that she uses [employer]. Aware to check results/results letter in [employer]. Will contact by phone if needed. Discussed [...] weekly Assessment & Plan (05/01/2017 7:40 PM PIN INSERTER REGULATOR): - fasting BS low - advised to [...] to switch to SGLT -2 inhibitors ( Minh ) - follow up in 2 months [...] 04/18/2017 Assessment & Plan (05/01/2017 7:47 PM PIN INSERTER REGULATOR): Hypertension is improving with treatment. Continue current [...] 04/18/2017 Assessment & Plan (05/01/2017 7:47 PM PIN INSERTER REGULATOR): Obesity is unchanged. Discussed the patient's BMI. [...] with long-term current use of insulin (HCC) LIPID PANEL Routine 07/17/2024 8:34 AM PIN INSERTER REGULATOR ALBUMIN CREATININE RATIO, URINE Routine 12/27/2023 8:43 AM CDT Type 2 diabetes mellitus with hyperglycemia, with long-term current use of insulin ([facility]) DIABETES EYE EXAM Routine 01/25/2023 10:30 AM [...] of Race in Diagnosing Kidney Disease, JASN 202). The CKD-EPI equation should not be used for patients with unstable renal function and has not been validated in children and those over 70. Current interpretive data was last reviewed 2021. Blood 09/16/2024 11:4 5 AM CDT 09/16/2024 4:31 PM CDT us Ailyn Milton NP LAB BLOOD ORDERABLES Melissa ambrosio Result [facility] [address] [address] Department [place] [address] * Comprehensive metabolic panel (09/16/2024 11:45 AM CDT) Sodium 137 135 - 145 mmol/L Potassium, pl 4.8 3.3 - 4.9 mmol/L [facility] Chloride 100 97 - 110 mmol/L [facility] CO2 22 22 - 32 mmol/L [facility] Anion gap 15 2 - 15 mmol/L [facility] BUN 13 6 - 25 mg/dL [facility] Creatinine 0.86 0.60 - 1.10 mg/dL [facility] Glucose 114 70 - 199 mg/dL [facility] Comment: Interpretive Data Fasting glucose >/= 126 [...] 09/16/2024 4:18 PM CDT us Ailyn Milton WATCH CRYSTAL CUTTER LAB BLOOD ORDERABLES Melissa l Result [facility] [address] [address] Department [place] [address] * (ABNORMAL) POCT hemoglobin A1c (09/16/2024 11:07 AM CDT) Hemoglobin A1C, POC 9.8 4.0 - 5.6 % Blood 09/16/2024 11:0 7 AM CDT us Ailyn Milton NP POINT OF CARE TEST ORDERA BLES Final Result * (ABNORMAL) POCT glucose (09/16/2024 11:04 AM CDT) Glucose Blood, POC 155 mg/dL Blood 09/16/2024 11:0 4 AM CDT us Ailyn Milton NP POINT OF CARE TEST ORDERA BLES Final Result * Lipid panel (07/17/2024 8:34 AM PIN INSERTER REGULATOR) SCRIBED Cholesterol, Total 180 140 - 199 [facility] SCRIBED HDL 76 40 - NA [facility] SCRIBED LDL 87 0 - 130 [facility] SCRIBED Triglycerides 86 0 - 150 [facility] Blood 07/17/2024 8:34 AM PIN INSERTER REGULATOR us Historical Provider LAB BLOOD ORDERABLES Edit ed Result - Final [facility] [address] [phone] * (ABNORMAL) Albumin Creatinine Ratio, Urine (12/27/2023 8:43 AM CDT) SCRIBED Creatinine, Urine 90.70 NA - NA [facility] SCRIBED Microalbumin 22.0(A) 0.0 - 16.6 [facility] SCRIBED Microalb/Creat Ratio 24 0 - 29 [facility] Urine 12/27/2023 8:43 AM CDT Ailyn Milton NP LAB URINE ORDERABLES Melissa ambrosio Result [facility] [address] [place] [address], [facility] [phone] * DIABETES EYE EXAM (01/25/2023 10:30 AM CDT) Historical Provider HEALTH MAINTENANCE Final Result from Last 3 Months or Most Recently Relevant to Health Maintenance Insurance Care Teams Information Systems Manager Relationship Specialty Start [place] [address] [place] [address] PCP - General Internal Medicine 03/20/17 [place] [address] [address] Nurse Practitioner Endocrinology Diabetes & Metabolism 01/29/24
--- OUTSIDE RECORDS SUMMARY | 2024-10-21 08:04 | XMS_ITS | Clinical Summary ---
Author Organization [facility] Address [address] [place] [address] Care Team Providers Care Social Media Job Titles Name Role Phone Montserrat Bellamy MD Primary Care Provider Source Comments [facility],non-owned Affiliates and Associated Physician Practices is amultiple site organization consisting of ambulatory clinics and hospital sitesin [place], [place], [place]. This disclosure is being madepursuant to the Care Everywhere program and may not contain all information available regarding this patient. Last updated 18.[facility] Allergies Active Allergy Reactions Criticality Noted Date Comments Contrast-Iodinated Agents For Ct/Other Urticaria Medium 09/16/2023 Penicillins Itching 09/16/2023 Pt reports yeast infections with use Tetanus Antitoxin Urticaria Medium 09/16/2023 Tetanus Toxoid Adsorbed Rash Medium 08/13/2024 Medications * Be aware that medications may not be up to date on this document. Alwaysverify current medications with the patient. metFORMIN (Glucophage) 1000 MG tablet Take 1 (one) tablet by mouth 2 times daily 10/10/19 24 Active metoprolol tartrate IR (Lopressor) 25 MG tablet Take 1 (one) tablet by mouth 2 times daily 10/22/19 23 Active Farxiga 10 MG tablet Take 1 (one) tablet by mouth once daily 10/10/19 24 Active losartan (Cozaar) 100 MG tablet Take 1 (one) tablet by mouth once daily Active montelukast (Singulair) 10 MG tablet TAKE 1 TABLET BY MOUTH ONCE DAILY AT BEDTIME FOR 30 DAYS Active nitroGLYCERIN (Nitrostat) 0.4 MG tablet nitroglycerin 0.4 mg tablet, sublingual Active Victoza 18 MG/3ML pen Inject 1.2 mg subcutaneously once daily 01/05/20 24 Active Lantus SoloStar pen INJECT 26 UNITS SUBCUTANEOUSLY NIGHTLY 11/01/19 24 Active insulin lispro (HumaLOG;ADMelo g) 100 UNIT/ML pen Inject 12 (twelve) Units subcutaneously 2 times daily, before breakfast and supper 10/10/19 24 Active albuterol HFA (Proventil; Ventolin; Proair) 108 (90 Base) MCG/ACT inhaler Inhale 2 (two) puffs by mouth every 6 hours as needed Active aspirin EC (Ecotrin) 81 MG tablet Take 1 (one) tablet by mouth once daily Active vitamin D, ergocalciferol, (Drisdol) 1.25 MG (05441 UT) capsule Take 1 (one) capsule by mouth every 30 days Active gabapentin (Neurontin) 100 MG capsuleIndicati ons:Nonintracta ble headache, unspecified chronicity pattern, unspecified headache type,Headache, cervicogenic,Mi graine without aura and without status migrainosus, not intractable Take 2 (two) capsules by mouth at bedtime 60 capsule 5 09/28/19 25 Active Active Problems Problem Noted Date Diagnosed Date OA (osteoarthritis) 09/27/2024 Pain in right shoulder 11/04/2015 Encounters Date Type Department Care Team Description 09/27/2024 9:00 AM CDT Office Visit [facility] - Neurology [address] [place] [address] Anusha Morris, ELECTRICAL MANUFACTURING TECHNICIAN-MANUFACTURING CONTROLS ENGINEER Migraine without aura and without status migrainosus, not intractable (Primary Dx); Nonintractable headache, unspecified chronicity pattern, unspecified headache type; Headache, cervicogenic; Chiari malformation type I (HCC) 09/27/2024 Travel 09/25/2024 Orders Only [facility] - ENT [address], [address] [place] [address] Elyssa Gamboa RN Abnormal MRI 09/25/2024 Telephone [facility] - ENT [address], [address] [place] [address] Elyssa Gamboa, bowstring maker (For audiogram) 09/20/2024 Travel 08/15/2024 Travel 08/13/2024 8:30 AM PARTS IDENTIFIER Office Visit [facility] - Neurosurgery [address] [place] [address], [place] [address] Douglas Macdonald MD Nonintractable headache, unspecified chronicity [...] at Not on file Legal Sex Female 5:58 PM PARTS IDENTIFIER Gender Identity Not on file Sexual Orientation Not on file Last Filed Vital Signs Vital Sign Reading Time Taken Comments Blood Pressure 156/89 09/27/2024 8:58 AM CDT patient didn't take meds. Pulse 81 09/27/2024 8:58 AM CDT Temperature 36.6 C (97.8 F) 08/13/2024 8:29 AM PARTS IDENTIFIER Respiratory Rate 16 09/16/2023 12:0 7 AM CDT Oxygen Saturation 98% 09/27/2024 8:5 8 AM CDT Inhaled Oxygen Concentration - - Weight 73 kg (161 lb) 09/27/2024 8:58 AM CDT Height 154.9 cm (5' 1 ) 08/13/2024 8:29 AM PARTS IDENTIFIER Body Mass Index 30.42 08/13/2024 8:29 AM PARTS IDENTIFIER Plan of Treatment Upcoming Encounters Date Type Department Care Team (Late st Contact Info) Description 01/27/2025 10:00 AM CDT Office Visit [facility] - Neurology [address] [place] [address], [place] [phone] Anusha Morris, ELECTRICAL MANUFACTURING TECHNICIAN-MANUFACTURING CONTROLS ENGINEER [address] [place] [address] [place] [address] Health Maintenance Due Date Last Done Comments [...] (ABNORMAL) COMPREHENSIVE METABOLIC PANEL (09/16/2023 12:22 AM [facility]) BUN 17 7 - 26 mg/dL 09/16/2023 1:[address] [facility] Creatinine 1.01(H) 0.56 - 0.96 mg/dL 09/16/2023 1:[address] [facility] Sodium 136 136 - 145 mmol/L 09/16/2023 1:[address] [facility] Potassium 4.6(H) 3.5 - 4.5 mmol/L 09/16/2023 1:[address] [facility] Chloride 104 98 - 107 mmol/L 09/16/2023 1:[address] [facility] CO2 21(L) 22 - 29 mmol/L 09/16/2023 1:[address] [facility] Glucose 235(H) 70 - 115 mg/dL 09/16/2023 1:[address] [facility] Calcium 9.4 8.4 - 10.2 mg/dL 09/16/2023 1:[address] [facility] Protein Total 7.4 6.0 - 8.3 g/dL 09/16/2023 1:[address] [facility] Albumin 3.7 3.4 - 5.0 g/dL 09/16/2023 1:[address] [facility] Bilirubin Total 0.4 0.2 - 1.2 mg/dL 09/16/2023 1:[address] [facility] Alkaline Phosphatase 98 40 - 150 U/L 09/16/2023 1:[address] [facility] ALT 12 5 - 55 U/L 09/16/2023 1:[address] [facility] AST 21 5 - 34 U/L 09/16/2023 1:[address] [facility] Anion Gap 11 6 - 16 09/16/2023 1:[address] [facility] BUN/Creatinine Ratio 17 7 - 23 09/16/2023 1:[address] [facility] Osmolality Calculated 291 275 - 295 mOsm/kg 09/16/2023 1:[address] [facility] Albumin/Globulin Ratio 1.0(L) 1.1 - 2.3 09/16/2023 1:00 AM CDT [facility] eGFR by CKD-EPI 63(L) >=90 mL/min/1.7 3 m2 09/16/2023 1:00 AM CDT [facility] Blood BLOOD SPECIMEN / Unknown Venipuncture / Unknown 09/16/2023 12:22 AM CDT 09/16/2023 12:31 AM CDT us Garrett Snyder MD LAB - CHEMISTRY ORDERABLES F inal Result [facility] [address] [place] [address], [facility] [phone] from Last 3 Months or Most Recently Relevant to Health Maintenance Insurance [facility] Care Teams Social Media Job Titles Relationship Specialty Start Date End Date Montserrat Bellamy MD [address] [place], [place] [phone] PCP - General 10/20/15
--- OUTSIDE RECORDS SUMMARY | 2024-10-21 08:04 | XMS_ITS | Clinical Summary ---
Author Organization [facility] Address [address] [place] [address] Phone Care Team Providers Care Drag Sawyer Name Role Phone Montserrat Bellamy MD Primary Care Provider [phone] Allergies Active Allergy Reactions Criticality Noted Date [...] on file Legal Sex Female 12:46 PM STOPPER GRINDER Gender Identity Not on file Sexual Orientation [...] 10.3(H) <5.7 % 01/05/2022 3:39 AM CDT [facility] EST. AVG GLUCOSE, A1C 249 mg/dL 01/05/2022 3:39 AM CDT [facility] Blood Venipuncture / Unknown 01/04/2022 6:54 PM CDT 01/04/2022 6:57 PM CDT Narrative [facility] - 01/05/2022 3:39 AM CDT HGB A1C INTERPRETATION NORMAL: <5.7% PRE-DIABETES: 5.7 - 6.4% DIABETES: 6.5% OR GREATER Freddie Hwang MD CHEMISTRY ORDERABLES Final Resul t [facility] CLIA# [id number] [address] [place] [address] from Last 3 Months or Most Recently Relevant to Health Maintenance Insurance [employer] [place] Advance Directives For more information, please contact: [phone] * Full Code (Latest Code Status on File) Date Activated Date Inactivated Comments 01/05/2022 7:12 AM 01/07/2022 7:49 PM Care Teams Drag Sawyer Relationship Specialty Start [place] [address] [place] [address] PCP - General Internal Medicine 07/19/18
--- OUTSIDE RECORDS SUMMARY | 2024-10-21 08:04 | XMS_ITS | Clinical Summary ---
Author Organization [facility] [id number] [place] [phone] Care Team Providers Care Cash Applications Representative Name Role Phone Montserrat Bellamy MD Primary Care Provider Aliyn Milton PRINCIPAL CYBER ENGINEER Unavailable [phone] Allergies Active Allergy Reactions Criticality Noted Date [...] x 5/32 needle USE 1 ONCE DAILY 07/11/19 24 [...] 26 UNITS SUBCUTANEOUSLY NIGHTLY 30 mL 08/27/19 25 Active liraglutide (Victoza 3-Ap) 0.6 mg/0.1 mL [...] Will update CMP. Verified that she uses [facility]. Aware to check results/results letter in [facility]. Will contact by phone if needed. Discussed [...] weekly Assessment & Plan (05/01/2017 7:40 PM STAFFING RECRUITER): - fasting BS low - advised to [...] 04/18/2017 Assessment & Plan (05/01/2017 7:47 PM STAFFING RECRUITER): Hypertension is improving with treatment. Continue current [...] 04/18/2017 Assessment & Plan (05/01/2017 7:47 PM STAFFING RECRUITER): Obesity is unchanged. Discussed the patient's BMI. [...] Department Care Team Description 09/20/2024 Orders Only [facility] Diabetes and Endocrinology [address] [place] [phone] ProviderCaterina MD 09/17/2024 Results Follow-Up [facility] Diabetes [facility] Endocrinology [address] [place] [phone] Ailyn Milton NP 09/16/2024 11:45 AM CDT - 09/16/2024 11:59 PM CDT Hospital Encounter [address] [address] Type 2 diabetes mellitus with hyperglycemia, with long-term current use of insulin (HCC); Hypertension associated with type 2 diabetes mellitus (HCC) Discharge Disposition: Discharge to home or self care 09/16/2024 11:45 AM CDT Lab [facility] Medical [facility] at [address] [phone] Essential hypertension (Primary Dx); Hypertension associated with type 2 diabetes mellitus (HCC) 09/16/2024 11:00 AM CDT Office Visit [facility] Diabetes and Endocrinology [address] [place] [phone] Ailyn Milton NP Type 2 diabetes mellitus with hyperglycemia, with long-term current use of insulin (HCC) (Primary Dx); Hypertension associated with type 2 diabetes mellitus (HCC) 07/29/2024 Orders Only [facility] Diabetes and Endocrinology [address] [place] [phone] Provider, MD Caterina from Last 3 Months Surgical History Surgery [...] 10/2017, 01/26/2016, Additional history exists Covid-19 Vaccine ( - 2023-2 5 season) 2024 09/05/2022, 07/06/2021, 10/03/2020 Foot Exam 12/06/2024 12/07/2023, 11/0 11/2016, 04/17/2017 Albumin Creatinine Ratio, Urine 12/26/2024 Influenza Vaccine (Season Ended) 2025 05/02/2022, 06/28/2021, 04/16/2020, Additional history exists Hemoglobin A1C 03/19/2025 09/16/2024, 2 07/2024, 12/07/2023, Additional history exists Lipid Panel 07/17/2025 [...] (HCC) LIPID PANEL Routine 07/17/2024 8:34 AM STAFFING RECRUITER ALBUMIN CREATININE RATIO, URINE Routine 12/27/2023 8:43 [...] of Race in Diagnosing Kidney Disease, JASN 2021). The CKD-EPI equation should not be used for patients with unstable renal function and has not been validated in children and those over 70. Current interpretive data was last reviewed 2021. Blood 09/16/2024 11:4 5 AM CDT 09/16/2024 4:31 PM CDT us Ailyn Milton PRINCIPAL CYBER ENGINEER LAB BLOOD ORDERABLES Melissa daily Result [facility] [address] Department [place] [address] * Comprehensive metabolic panel (09/16/2024 11:45 AM [...] AM CDT 09/16/2024 4:18 PM CDT us Ailynann-marie Milton PRINCIPAL CYBER ENGINEER LAB BLOOD ORDERABLES Melissa l Result [facility] [id number] Department [place] [address] * (ABNORMAL) POCT hemoglobin A1c (09/16/2024 11:07 AM CDT) Hemoglobin A1C, POC 9.8 4.0 - 5.6 % Blood 09/16/2024 11:0 7 AM CDT us Ailyn Milton PRINCIPAL CYBER ENGINEER POINT OF CARE TEST ORDERA BLES Final Result * (ABNORMAL) POCT glucose (09/16/2024 11:04 AM CDT) Glucose Blood, POC 155 mg/dL Blood 09/16/2024 11:0 4 AM CDT us Ailynann-marie Milton PRINCIPAL CYBER ENGINEER POINT OF CARE TEST ORDERA BLES Final Result * Lipid panel (07/17/2024 8:34 AM STAFFING RECRUITER) SCRIBED Cholesterol, Total 180 140 - 199 [facility] SCRIBED HDL 76 40 - NA [facility] SCRIBED LDL 87 0 - 130 [facility] SCRIBED Triglycerides 86 0 - 150 [facility] Blood 07/17/2024 8:34 AM STAFFING RECRUITER us Historical Provider LAB BLOOD ORDERABLES Edit ed Result - Final [facility] [address] [place] [address], [facility] [phone] * (ABNORMAL) Albumin Creatinine Ratio, Urine (12/27/2023 8:43 AM CDT) SCRIBED Creatinine, Urine 90.70 NA - NA [facility] SCRIBED Microalbumin 22.0(A) 0.0 - 16.6 [facility] SCRIBED Microalb/Creat Ratio 24 0 - 29 [facility] Urine 12/27/2023 8:43 AM CDT us Ailyn Milton NP LAB URINE ORDERABLES Melissa l Result [facility] [address] [place] [address], [facility] [phone] * DIABETES EYE EXAM (01/25/2023 10:30 AM CDT) us Historical Provider HEALTH MAINTENANCE Final Result from Last 3 Months or Most Recently Relevant to Health Maintenance Insurance Care Teams Cash Applications Representative Relationship Specialty Start Date End Date Montserrat Bellamy MD [address] [place] [address] PCP - General Internal Medicine 03/20/17 [place] [address] [address] Nurse Practitioner Endocrinology Diabetes & Metabolism 01/29/24
== END 2024-10-21 07:55 | disposition home or self-care (01) ==
LOC: ANHAUDASC 07:57
PROVIDERS: PCP Internal Medicine Infectious Disease
DX: R93.89 Abnormal findings on diagnostic imaging of other specified body structures (principal)
CPT/HCPCS: 92557; 92567